=== PATIENT | female | born 1995 | race Caucasian/White ===

== ENCOUNTER → 2019-11-06 14:24 | Outpatient (BNVA) | payer MEDICAID, SELFPAY | PROVIDERS: Family Provider Nurse Practitioner Family; PCP Family Medicine; Visit Provider Nurse Practitioner Family | DX: J40 Bronchitis, not specified as acute or chronic (principal) | CPT/HCPCS: 71046 ==

== ENCOUNTER → 2020-12-08 10:48 | Outpatient (BNVA) | payer MEDICAID, SELFPAY | PROVIDERS: Family Provider Nurse Practitioner Family; PCP Nurse Practitioner Family; Visit Provider Nurse Practitioner Family | DX: D50.9 Iron deficiency anemia, unspecified (principal); N93.9 Abnormal uterine and vaginal bleeding, unspecified; R10.9 Unspecified abdominal pain | CPT/HCPCS: 81025; 85025 ==

== ENCOUNTER 2020-12-09 16:43 | Emergency (ER) | payer MEDICAID, SELFPAY ==
[2020-12-09 17:17] VITALS: BP 145/90; PULSE 90; RESP 16; TEMP 36.5; O2SAT 95; BMI 45.7
--- NOTE | 2020-12-09 17:34 | ED_ITS ---
HPI - Female Genitourinary General: Chief complaint: Vaginal Bleeding Stated complaint: SENT BY PCP/EXCESSIVE VAGINAL BLEEDING(3 WKS) Time Seen by Provider: 12/09/20 17:27 History of Present Illness: HPI Narrative: Patient is a 25-year-old female comes to the ED with vaginal bleeding. Patient has a past medical history of multiple C-sections and has had her tubes tied several years ago. She states that she went about 6 months without having. And then approximately 3 weeks ago she began having some vaginal bleeding. She says the vaginal bleeding has been fairly heavy and states that she is went through 2 boxes of tampons over the past 3 weeks. She says she has passed multiple blood clots as well. She has been having lower pelvic pain and lower back pain since bleeding started. Denies any dysuria or hematuria. She does states she feels like she has to urinate all the time. Denies fever, chills, nausea, emesis, bowel symptoms. Associated symptoms: Deny abdominal pain, headache(s) or nausea Date of Last Menstrual Period: 12/09/20 Review of Systems Const: Denies: fever(s), chills or fatigue Eyes: Denies: change in vision or eye discomfort ENMT: Denies: throat pain, odynophagia, nasal discharge or nasal congestion Card: Denies: chest pain, palpitations, edema, swelling of feet/ankles, d yspnea on exertion or orthopnea Resp: Denies: dyspnea, productive cough or non-productive cough GI: Denies: abdominal pain, nausea, vomiting, diarrhea, constipation or hematochezia : Reports: urinary frequency, vaginal bleeding and pelvic pain; Denies: flank pain, dysuria or hematuria Musc: Reports: back pain (low back pain); Denies: neck pain or extremity swelling Skin/Breast: Denies: rash or new lesions Neuro: Denies: headache(s), numbness in extremities or weakness in extremities PFSH ED PFSH: Medical History Cyst of right ovary Surgical History Hx of section (~03/2016) x 3 Hx of tubal ligation (~03/2016) Family History Mother Diabetes Hypertension Family/Other Hypertension Cancer Diabetes Social History Smoking and tobacco status: light tobacco smoker Second hand smoke exposure: Yes Alcohol intake: never Substance/Drug Use: never Lives independently: Yes Household members: children Marital status: Single service: No Current occupational status: unemployed History of recent travel: No Current gender identity: Female Female Reproductive History: Date of last menstrual period: 12/09/20 Physical Exam Const: COMMON NORMALS: no acute distress, patient oriented x3 and alert GENERAL APPEARANCE: cooperative and comfortable NUTRITIONAL APPEARANCE: obese HENMT: COMMON NORMALS: normocephalic HEAD & SCALP: normocephalic MOUTH: Normal oral and palatal mucosa present THROAT: posterior oropharynx normal and uvula midline Eye: COMMON NORMALS: Equal, round and reactive pupils present PUPIL: Yes Equal, round and reactive pupils present Neck/C-Spine: COMMON NORMALS: supple GENERAL: Yes normal visual inspection Resp: COMMON NORMALS: normal respiratory effort, No retractions, No use of accessory muscles and clear to auscultation bilaterally AUSCULTATION: clear to auscultation bilaterally Cardio: COMMON NORMALS: regular rate, regular rhythm, S1 normal heart sound present, S2 normal heart sound present, No gallops present (Cardio), No clicks present (Cardio), No murmurs present (Cardio) and Peripheral pulses 2+ throughout RATE: regular rate RHYTHM: regular rhythm HEART SOUNDS: S1 normal heart sound present and S2 normal heart sound present PERIPHERAL PULSES: Peripheral pulses 2+ throughout GI: COMMON NORMALS: Normal to inspection, nondistended, normoactive bowel s ounds present, Soft to palpation and no masses INSPECTION: Yes central obesity PALPATION: Yes Soft to palpation and Yes Tenderness to palpation present (GI) (Lower pelvic tenderness, specifically over bladder.) : COMMON NORMALS: Yes no CVA tenderness BLADDER/KIDNEY EXAM: Yes no CVA tenderness Back/Pelvis: COMMON NORMALS: no CVA tenderness LUMBAR SPINE/LOWER BACK: Yes paraspinal muscle tenderness Lumbar paraspinal muscle tenderness: bilateral Extremity: COMMON NORMALS: normal to inspection Neuro: COMMON NORMALS: patient oriented x3 and moves all extremities SENSORIUM/ORIENTATION: Yes alert Skin: GENERAL SKIN EXAM: dry skin Course Vital Signs: Vital signs: Vital Signs Temperature 97.7 F 12/09/20 17:17 Pulse Rate 78 12/09/20 19:35 Respiratory Rate 16 12/09/20 18:00 Blood Pressure 122/87 12/09/20 19:35 Pulse Oximetry 96 12/09/20 19:35 MDM - Female MDM Narrative: Medical decision making narrative: Patient is a 25-year-old f emale comes to the ED with vaginal bleeding. Patient has had vaginal bleeding for the past 3 weeks. She states that before she started bleeding 3 weeks ago she had not had a period in 6 months. Patient has had her tubes tied and denies being . Exam shows a patient that is nontoxic and in no acute distress or pain. She has some mild lower pelvic tenderness but no other acute exam findings. White blood cell count 11.0 and hemoglobin was 11.4. Rest of CBC and CMP were unremarkable. hCG serum negative. UA showed no signs of UTI. Pelvic ultrasound showed no lesions or masses seen, ovaries normal no intrauterine noted in there. Final radiology report is pending. Patient diagnosed with abnormal uterine bleeding and discharged home. She was told to follow-up with her PCP in 7 to 10 days for reevaluation. Return to ED precautions given. Patient understood and agreed with plan. Lab Data: Attestation: I reviewed the patient's lab results. Labs: Lab Results 12/09/20 12/09/20 12/09/20 Range/Units 17:38 17:38 17:50 WBC 11.0 H (4.0-10.0) 10^3/ uL RBC 4.26 (4.1-5.3) 10^6/u L Hgb 11.4 L (11.5-15.3) g/dL Hct 36.4 L (37.0-47.0) % MCV 85.4 (81-99) fL MCH 26.8 L (28.0-34.0) pg MCHC 31.3 (30.0-36.0) g/dL RDW 14.2 (12.1-15.1) % Plt Count 400 (130-400) 10^3/c mm MPV 9.7 (7.4-10.4) fL Neut % (Auto) 65.1 % Lymph % (Auto) 24.2 % Bullock % (Auto) 5.9 % Eos % (Auto) 4.0 % Baso % (Auto) 0.4 % Neut # (Auto) 7.19 (1.8-7.7) 10^3/u L Lymph # (Auto) 2.7 (0.8-4.8) 10^3/u L Bullock # (Auto) 0.7 (0.2-0.9) 10^3/u L Eos # (Auto) 0.4 (0.0-0.8) 10^3/u L Baso # (Auto) 0.0 (0.0-0.1) 10^3/u L Nucleated RBC % (a uto) 0 % Nucleated RBCs # 0.0 /100WBC Sodium (136-145) mmol/L Potassium (3.5-5.1) mmol/L Chloride (98-107) mmol/L Carbon Dioxide (22-29) mmol/L Anion Gap (5-19) BUN (6-20) mg/dL Creatinine (0.5-0.9) mg/dL GFR Calculation (90-130) mL/min Glucose (65-115) mg/dL Calculated Osmolal ity (285-295) mOsm/k g Calcium (8.5-10.5) mg/dL Total Bilirubin (0.15-1.2) mg/dL AST (0-32) U/L ALT (0-33) U/L Alkaline Phosphata se (35-105) IU/L Total Protein (6.6-8.7) g/dL Albumin (3.5-5.2) g/dL Globulin (1.3-4.6) g/dL HCG, Qual Negative (Negative) Urine Color Yellow (Yellow) Urine Appearance Clear (CLEAR) Urine pH 8 H (5-7) Ur Specific Gravit y 1.010 (1.005-1.030) Urine Protein Neg (Negative) Urine Glucose (UA) Norm (Normal) Urine Ketones Negative (Negative) Urine Blood 2+ H (Negative) Urine Nitrate Negative (Negative) Urine Bilirubin Neg (Negative) Prot Sulfosalicyli c Acd Negative (Negative) Urine Urobilinogen Norm (Negative) mg/dL Ur Leukocyte Bev ase Negative (Negative) Urine RBC None (0-2) /hpf Urine WBC None (0-5) /hpf Ur Squamous Epith Cells Rare (0-5) /hpf Amorphous Sediment Not Reportable Urine Bacteria None (NONE) /hpf 12/09/20 Range/Units 17:50 WBC (4.0-10.0) 10^3/ uL RBC (4.1-5.3) 10^6/u L Hgb (11.5-15.3) g/dL Hct (37.0-47.0) % MCV (81-99) fL MCH (28.0-34.0) pg MCHC (30.0-36.0) g/dL RDW (12.1-15.1) % Plt Count (130-400) 10^3/c mm MPV (7.4-10.4) fL Neut % (Auto) % Lymph % (Auto) % Bullock % (Auto) % Eos % (Auto) % Baso % (Auto) % Neut # (Auto) (1.8-7.7) 10^3/u L Lymph # (Auto) (0.8-4.8) 10^3/u L Bullock # (Auto) (0.2-0.9) 10^3/u L Eos # (Auto) (0.0-0.8) 10^3/u L Baso # (Auto) (0.0-0.1) 10^3/u L Nucleated RBC % (a uto) % Nucleated RBCs # /100WBC Sodium 138 (136-145) mmol/L Potassium 4.3 (3.5-5.1) mmol/L Chloride 105 (98-107) mmol/L Carbon Dioxide 26 (22-29) mmol/L Anion Gap 11.3 (5-19) BUN 16 (6-20) mg/dL Creatinine 0.7 (0.5-0.9) mg/dL GFR Calculation 100.4 (90-130) mL/min Glucose 85 (65-115) mg/dL Calculated Osmolal ity 286 (285-295) mOsm/k g Calcium 9.3 (8.5-10.5) mg/dL Total Bilirubin 0.2 (0.15-1.2) mg/dL AST 22 (0-32) U/L ALT 24 (0-33) U/L Alkaline Phosphata se 55 (35-105) IU/L Total Protein 7.5 (6.6-8.7) g/dL Albumin 4.4 (3.5-5.2) g/dL Globulin 3.1 (1.3-4.6) g/dL HCG, Qual (Negative) Urine Color (Yellow) Urine Appearance (CLEAR) Urine pH (5-7) Ur Specific Gravit y (1.005-1.030) Urine Protein (Negative) Urine Glucose (UA) (Normal) Urine Ketones (Negative) Urine Blood (Negative) Urine Nitrate (Negative) Urine Bilirubin (Negative) Prot Sulfosalicyli c Acd (Negative) Urine Urobilinogen (Negative) mg/dL Ur Leukocyte Bev ase (Negative) Urine RBC (0-2) /hpf Urine WBC (0-5) /hpf Ur Squamous Epith Cells (0-5) /hpf Amorphous Sediment Urine Bacteria (NONE) /hpf Imaging Data: US: Attestation: I personally reviewed and interpreted this imaging study as follows: Radiologist's impression: Ultrasound pelvis?prelim report?no lesions or masses seen. Ovaries normal and no intrauterine noted. Final radiology report is pending. Discharge Plan Discharge Patient Disposition: Home Clinical Impression: Abnormal uterine bleeding Condition: Stable Prescriptions: No Action albuterol sulfate [Ventolin HFA] 90 mcg/actuation HFA aerosol inhaler 2 puff INHALATION Q6H PRN (Reason: shortness of breath or wheezing) Qty: 6.7 RF: 0 albuterol sulfate 2.5 mg /3 mL (0.083 %) solution for nebulization 2.5 mg INHALATION QID PRN (Reason: shortness of breath or wheezing) Qty: 75 RF: 0 Tylenol 325 mg Tablet 325 - 650 mg PO Q6H PRN (Reason: Pain) RF: 0 FeroSul 325 mg (65 mg iron) tablet 325 mg PO BID RF: 0 Discharge Orders: Discharge ED (Routine); Ordered 12/09/20 Ordered By: Jose Mosquera Referrals: Karyna Shell FNP [Primary Care Provider] - Discharge Diet: Regular Discharge Activity: Limit activity as instructed Patient Instructions: Opioid Safety, Abnormal Uterine Bleeding Activity Restrictions/Additional Instructions: Follow-up with medical provider as directed. Call PCP tomorrow to set up an appointment within the next 7 to 10 days to reevaluate. Rest for the next 3 to 4 days and then increase activity as tolerated. Take [id number] Motrin or Tylenol for any pain. Return to the ER or your medical provider if condition worsens. Please read and understand discharge instructions. If any questions, please ask. Coding Level of Care Code ED Supervisor Of Operations for Marlin Fwana Exam Comprehensive
[2020-12-09 17:49] VITALS: BP 154/124; PULSE 84; O2SAT 100
--- NOTE | 2020-12-09 17:54 | US_ITS ---
WS: [id number] ULTRASOUND PELVIS TECHNIQUE: Transabdominal. Patient refused transvaginal CLINICAL INFORMATION: vaginal beeding : No. COMPARISON: None. FINDINGS: Uterus Orientation: Anteverted. Size: 10.6 cm x 5.8 cm x 5.5 cm Masses: None. Cervix: Blood clot visualized in the cervix extending into the upper vaginal canal Endometrium: Normal. Endometrium thickness: 0.5 cm. Adnexa: Normal. Right ovary size: 2.9 cm x 1.6 cm x 2.7 cm. Right ovary volume: 6.6 ccm3 Left ovary size: 3.8 cm x 2.7 cm x 2.8 cm. Left ovary volume: 15.0 ccm3 Free fluid: None. Other findings: None. US/US pelvic complete* [id number] IMPRESSION: 1. Normal uterus and endometrium. Endometrium measures 5.1 mm. 2. Hemorrhagic blood products and blood clots visualized in the cervix extendi ng into the upper vaginal canal. Recommend correlation with menorrhagia 3. Both ovaries are normal in appearance.
[2020-12-09 18:00] VITALS: RESP 16; O2SAT 94
[2020-12-09] MEDS: ondansetron 2 mg/ML SDV 2 mL 4 MG IVP (18:00)
[2020-12-09] MEDS: morphine 4 mg/mL SDV 1 mL IVP (18:00)
[2020-12-09 18:03] LABS: Basophils % 0.4 %; Eosinophils # 0.4 10^3/uL (0.0-0.8); Hematocrit 36.4 % (37.0-47.0); Hemoglobin 11.4 g/dL (11.5-15.3); Lymphocytes # 2.7 10^3/uL (0.8-4.8); Lymphocytes % 24.2 %; Mean Corpuscular HGB Conc 31.3 g/dL (30.0-36.0); Mean Corpuscular Hemoglobin 26.8 pg (28.0-34.0); Mean Corpuscular Volume 85.4 fL (81-99); Mean Platelet Volume 9.7 fL (7.4-10.4); Monocytes # 0.7 10^3/uL (0.2-0.9); Monocytes % 5.9 %; Neutrophils # 7.19 10^3/uL (1.8-7.7); Neutrophils % 65.1 %; Nucleated Red Blood Cells % 0 %; Platelet Count 400 10^3/cmm (130-400); Red Blood Count 4.26 10^6/uL (4.1-5.3); Red Cell Distribution Width 14.2 % (12.1-15.1)
[2020-12-09] MEDS: sodium chloride 0.9% 1,000 ML 999 ML IV (18:03)
[2020-12-09 18:25] LABS: Alanine Aminotransferase 24 U/L (0-33); Albumin Level 4.4 g/dL (3.5-5.2); Alkaline Phosphatase 55 IU/L (35-105); Anion Gap 11.3 (5-19); Aspartate Amino Transferase 22 U/L (0-32); Blood Urea Nitrogen 16 mg/dL (6-20); Calcium 9.3 mg/dL (8.5-10.5); Carbon Dioxide 26 mmol/L (22-29); Chloride 105 mmol/L (98-107); Creatinine Clr Calc Pharmacy 143.7304; Globulin 3.1 g/dL (1.3-4.6); Glomerular Filtration Rate 100.4 mL/min (90-130); Glucose 85 mg/dL (65-115); Osmolality Calculated 286 mOsm/kg (285-295); Potassium 4.3 mmol/L (3.5-5.1); Sodium 138 mmol/L (136-145); Total Bilirubin 0.2 mg/dL (0.15-1.2); Total Protein 7.5 g/dL (6.6-8.7)
[2020-12-09 18:34] LABS: HCG, Serum Qual Negative (Negative)
[2020-12-09 18:35] LABS: Bilirubin Urine Neg (Negative); Blood Urine 2+ (Negative); Glucose Urine UA Norm (Normal); Ketones Urine Negative (Negative); Leukocyte Esterase Urine Negative (Negative); Nitrate Urine Negative (Negative); Protein Urine Neg (Negative); Sulfosalicylic Acid Urine Negative (Negative); Urine Appearance Clear (CLEAR); Urine Color Yellow (Yellow); Urobilinogen Urine Norm (Negative); pH Urine 8 (5-7)
[2020-12-09 18:39] LABS: Squamous Epithelial Cell Urine RARE /hpf (0-5)
[2020-12-09] MEDS: HYDROcodone-acetaminophen 5-325 mg Tablet 2 TAB PO (19:33)
[2020-12-09 19:34] VITALS: BP 122/87; PULSE 79; O2SAT 97
[2020-12-09 19:35] VITALS: BP 122/87; PULSE 78; O2SAT 96
== END 2020-12-09 19:36 | disposition home or self-care (01) ==
PROVIDERS: Emergency Provider Physician Assistant; PCP Nurse Practitioner Family
DX: N93.9 Abnormal uterine and vaginal bleeding, unspecified (principal); F17.210 Nicotine dependence, cigarettes, uncomplicated
CPT/HCPCS: 76856; 80053; 81001; 84703; 85025; 96361; 96374; 96375; 99283; J2270; J2405; J7030

== ENCOUNTER → 2021-01-03 10:35 | Outpatient (BNVA) | payer MEDICAID, SELFPAY | PROVIDERS: PCP Nurse Practitioner Family; Visit Provider Obstetrics & Gynecology | DX: N93.9 Abnormal uterine and vaginal bleeding, unspecified (principal) | CPT/HCPCS: 84144; 84146; 84443; 84702 ==

== ENCOUNTER 2021-01-11 09:02 | Outpatient (CLI) | payer MEDICAID, SELFPAY ==
[2021-01-11] MEDS: iohexol 300 mg/mL 100 mL Btl IV (10:09)
--- NOTE | 2021-01-11 10:30 | CT_ITS ---
WS: [id number] CT ABDOMEN PELVIS TECHNIQUE: Contrast-enhanced CT of the abdomen and pelvis with coronal and sagittal reformatted image s. CLINICAL INFORMATION: R10.9 - Unspecified abdominal pain COMPARISON: CT October 03, 2018 DLP: 1199.[address] scans at [facility] use at least one of these dose optimization techniques: automat ed exposure control; mA and/or kV adjustment per patient size (includes targeted exams where dose is matched to clinical indication); or iterative reconstruction. FINDINGS: Hepatomegaly. Mild diffuse fatty infiltration the liver. Normal portal vein and splenic vein. Mild sp lenomegaly. Normal GE junction. Lung bases are well aerated. Normal pancreatic parenchymal enhancemen t. Normal gallbladder. Normal caliber abdominal aorta. Adrenal glands are normal. Normal renal parenc hymal enhancement. No hydronephrosis. No abdominal or pelvic lymphadenopathy. Endometrial thickening measuring approximately 23 mm. Some this may be due to fluid or blood products . No significant free fluid in the pelvis. Normal sigmoid colon. No evidence of small or large bowel obstruction. Left ovarian cyst measuring 2.[address]/CT abdomen pelvis w con* [id number] IMPRESSION: 1. Hepatomegaly and splenomegaly. Diffuse fatty infiltration of the liver. 2. No hydronephrosis in either kidney. 3. Heterogeneous uterine enhancement with uterine enlargement. Diffuse endomet rial thickening measuring 23 mm. This can be further evaluated with pelvic ultr asound. 4. Low-attenuation left ovarian cyst measuring 2.8 cm. 5. No other significant findings.
== END 2021-01-11 09:03 | disposition home or self-care (01) ==
PROVIDERS: PCP Nurse Practitioner Family; Visit Provider Nurse Practitioner Family
DX: R10.9 Unspecified abdominal pain (principal); N83.202 Unspecified ovarian cyst, left side; R16.2 Hepatomegaly with splenomegaly, not elsewhere classified; K76.0 Fatty (change of) liver, not elsewhere classified
CPT/HCPCS: 74177; Q9967

== ENCOUNTER → 2021-01-14 00:01 | Outpatient (BNVA) | payer MEDICAID, SELFPAY | PROVIDERS: PCP Nurse Practitioner Family; Visit Provider Obstetrics & Gynecology | DX: Z20.822 Contact with and (suspected) exposure to COVID-19 (principal) | CPT/HCPCS: 87635 ==

== ENCOUNTER → 2021-01-17 13:11 | Outpatient (BNVA) | payer MEDICAID, SELFPAY | PROVIDERS: PCP Nurse Practitioner Family; Visit Provider Obstetrics & Gynecology | DX: N93.9 Abnormal uterine and vaginal bleeding, unspecified (principal) | CPT/HCPCS: 88175 ==

== ENCOUNTER 2021-01-20 06:40 | Day surgery (SDC) | payer MEDICAID, SELFPAY ==
[2021-01-11 10:48] VITALS: BMI 47.5
--- NOTE | 2021-01-11 10:58 | ANES.PREANE2 ---
Pre-Anesthetic Assessment Pre-Anesthetic Assessment: Height/Weight: Height 1.57 m Weight 117.934 kg Preop Diagnosis: abdominal pain Proposed Procedure: Operation Date: 01/20/21 08:40 Proposed Procedures p Hysteroscopy [id number] N93.9(Not Applicable) - Brandee Cole MD s Dilation And Curettage (D&C)(Not Applicable) - Brandee Cole MD Familial anesthetic complications: had to be put to sleep during d/t inadequate anesthesia during planned c -section Social: Social History: No alcohol and No tobacco Exam: Pre-Anes Outpt Exam: alert, oriented x 3, clear to auscultation bilaterally and regular rate & rhythm Airway: Cervical ROM: WNL MP: 1 Dentition: Full CV/HEM: CV/HEM: Anemia Metabolic: Metabolic: Morbid obesity Musc/skel: Musc/skel: Lower Back Pain Anesthetic Plan: ASA status: 2 Anesthesia: General Risk of > 500 ml blood loss (7ml/kg in children): No PFSH Anesthesia PFSH: Medical History (Updated 01/03/21 @ 09:06 by Liliam Giles RN) Cyst of right ovary Surgical History Hx of section (~03/2016) x 3 Hx of tubal ligation (~03/2016) Family History (Updated 01/03/21 @ 09:29 by Liliam Giles RN) Mother Diabetes Hypertension Family/Other Cancer Breast cancer maternal cousin Grandmother Diabetes maternal Denies family history of Colon cancer Ovarian cancer Hyperlipidemia Uterine cancer Thyroid condition Stroke Social History (Updated 01/03/21 @ 09:07 by Liliam Giles RN) Smoking and tobacco status: light tobacco smoker Alcohol intake: never Marital status: Single History of recent travel: No Female Reproductive History: Date of last menstrual period: 01/11/21 Data Anesthesia Cardiac Studies: No Data to Display
[2021-01-20] VITALS (10 sets, daily range): BP systolic 124–166; BP diastolic 89–125; PULSE 80–115; RESP 16–20; TEMP 36.4–36.7; O2SAT 94–100
--- NOTE | 2021-01-20 06:57 | P.HPUD_ITS ---
Surgery/Procedure H&P Update DATE OF PROCEDURE: January 20, 2021 DATE H&P PERFORMED: 01/17/21 H&P UPDATE INFORMATION: I have reviewed H&P completed within last 30 days, I have examined patient prior to procedure, No changes to prior documentation and H&P is in [facility] [place] [facility] EMR on date indicated PREOP DIAGNOSIS: AUB PLANNED PROCEDURE: Operation Date: 01/20/21 07:00 Proposed Procedures p Hysteroscopy [id number] N93.9(Not Applicable) - Brandee Cole MD s Dilation And Curettage (D&C)(Not Applicable) - Brandee Cole MD
[2021-01-20 07:00] LABS: OR HCG Qualitative Urine Negative (Negative)
--- NOTE | 2021-01-20 07:07 | P.ANESUD_ITS ---
Pre-Anesthetic Update Pre-Anesthetic Assessment: Date of Surgery/Procedure: 01/20/21 Preop Taylor gnosis: AUB Proposed Procedure: Operation Date: 01/20/21 07:00 Proposed Procedures p Hysteroscopy [id number] N93.9(Not Applicable) - Brandee Cole MD s Dilation And Curettage (D&C)(Not Applicable) - Brandee Cole MD Any changes to Pre-Anesthetic Assessment?: No Last Intake: Intake Last Liquid Date 01/19/21 Last Liquid Time 23:00 Last Solid Date 01/19/21 Last Solid Time 23:00 Labs Last 48hrs: Laboratory Results - last 48 hr 01/20/21 06:19 Urine HCG, Qual Negative Vitals: Temperature 98.0 F 01/20/21 06:53 Temperature Source Temporal Artery S can 01/20/21 06:53 Pulse Rate 115 H 01/20/21 06:53 Pulse Rhythm 01/20/21 06:53 Pulse Strength 3+ Normal 01/20/21 06:53 Respiratory Rate 18 01/20/21 06:53 Blood Pressure 166/125 01/20/21 06:53 Blood Pressure Tameka n 138 01/20/21 06:53 Pulse Oximetry 98 01/20/21 06:53 Oxygen Delivery Me thod 01/20/21 06:53 Exam: Pre-Anes Outpt Exam: alert, oriented x 3, clear to auscultation bilaterally and regular rate & rhythm Cardiac Studies: No Data to Display
[2021-01-20] MEDS: sodium chloride 0.9% 1,000 ML 30 ML IV (07:08)
[2021-01-20 07:10] LABS: Basophils % 0.2 %; Eosinophils # 0.2 10^3/uL (0.0-0.8); Eosinophils % 1.5 %; Hemoglobin 9.7 g/dL (11.5-15.3); Lymphocytes # 2.2 10^3/uL (0.8-4.8); Mean Corpuscular HGB Conc 31.3 g/dL (30.0-36.0); Mean Corpuscular Hemoglobin 25.7 pg (28.0-34.0); Mean Corpuscular Volume 82.2 fL (81-99); Mean Platelet Volume 9.3 fL (7.4-10.4); Monocytes % 6.5 %; Neutrophils # 12.35 10^3/uL (1.8-7.7); Neutrophils % 77.2 %; Nucleated Red Blood Cells % 0 %; Platelet Count 457 10^3/cmm (130-400); Red Blood Count 3.77 10^6/uL (4.1-5.3); Red Cell Distribution Width 13.1 % (12.1-15.1)
[2021-01-20] MEDS: miSOPROStol 200 mcg Tablet 800 MCG XX (07:55)
--- NOTE | 2021-01-20 07:56 | PM.OP ---
Operative Report Date of procedure: January 20, 2021 OPERATIVE REPORT Date of surgery: 01/20/2021 Date of dictation: 01/20/2021 Preoperative diagnosis: Menorrhagia-abnormal uterine bleeding-likely anovulatory Postoperative diagnosis/findings: Same, 8 to 9-week size anteverted uterus, mobile, no adnexal masses, on hysteroscopy thick endometrium-no obvious defects or lesions noted within the endometrial endocervical cavity, bilateral ostia visualized and normal. Procedure done: Hysteroscopy, D&C Specimens removed/disposition of specimens: Endometrial curettings Surgeon: Dr. Brandee Cannon central supply assistant: Dominga Anesthesia: General endotracheal tube anesthesia Estimated blood loss: 25 ml Intravenous fluids: 500 mL of LR Urine output: 20 mL of clear urine via red rubber catheter prior to start of surgery Medications: 800 mcg of Cytotec per rectum, as per anesthesia Complications: None, patient was extubated and taken to the recovery room in a stable condition PROCEDURE: After consent was obtained patient was taken to the operating room where she is placed under general endotracheal tube anesthesia without any difficulty. She was placed supine on the table in lithotomy position. Care was taken to ensure that her legs were well positioned to avoid pressure points. She was then prepped and draped in the usual sterile fashion. Exam under anesthesia was done at this time which showed a 8 to 9-week size anteverted uterus. The weighted speculum and lateral vaginal wall retractors were placed in the vagina and the cervix was visualized. The cervix appeared normal. The cervix was dilated to a 15 Glass dilator very easily. This allowed placement of a 3 mm hysteroscope into the uterine cavity without any difficulty. Once the hysteroscope was placed in the uterine cavity, the endocervical canal was visualized and appeared normal except for thick fluffy endometrial tissue-no polyps or other intracavitary lesions were noted..the uterine cavity was visualized and thick endometrial tissue noted. The hysteroscope was withdrawn and sharp curette was placed and curettage was performed and extensive amounts of thick tissue was obtained..The endometrial curettings were sent to pathology in . No active bleeding was noted from the cervix. Tenaculum was removed and good hemostasis was noted. Good hemostasis was achieved. 800 mcg of Cytotec was placed per rectum to help with uterine contractility and to decrease the bleeding. All instruments were removed from the vagina. Patient was cleaned well and anesthesia was reversed without any difficulty. She was taken to the recovery in a stable condition. FOLLOW UP: Follow-up in 2 weeks and 6 weeks with surgeon MEDICATION ON DISCHARGE: Colace 100 mg by mouth every 12 hours when necessary constipation, 30 tablets, no refills Ibuprofen 600 mg by mouth every 8 hours when necessary pain, 60 tablets, no refills. with iron once a day as per instructions Continue other home medication[default value] DISPOSITION: Home in a stable condition This documentation was created by [employer] engineer remote control diesel software (known for inherent engineer remote control diesel error). Every effort was made to assure accuracy of engineer remote control diesel. Any obvious errors or omissions should be clarified with the author of the document. Pre-op Diagnosis: AUB
[2021-01-20] MEDS: fentaNYL 50 mcg/mL INJ 2mL IVP (08:14)
[2021-01-20] MEDS: ibuprofen 600 mg Tablet PO (08:57)
--- NOTE | 2021-01-20 09:26 | SUR.PHASEI ---
0802- ORAL AIRWAY REMOVED, SIMPLE MASK AT 6LPM SAT 100%
--- NOTE | 2021-01-20 13:33 | ANE.PACU2 ---
Inpatient post-anesthesia follow up: Airway intact: Yes Vital signs: Temperature 97.5 F Pulse Rate 88 Respiratory Rate 18 Blood Pressure 145/102 Pulse Oximetry 94 Oxygen Delivery Me thod Room Air Oxygen Flow Rate 6 Fraction of Inspir ed Oxygen Hydration adequate: Yes Nausea and vomiting: No Pain level: 2 Mental status: Baseline
== END 2021-01-20 09:20 | disposition home or self-care (01) ==
PROVIDERS: Anesthesiology; PCP Nurse Practitioner Family; Visit Provider Obstetrics & Gynecology
PROC: 0UJD8ZZ Inspection of Uterus and Cervix, Via Natural or Artificial Opening Endoscopic (ICD-10-PCS; CPT 58555; principal; 2021-01-20 07:00)
PROC: (CPT 58120; 2021-01-20 07:00)
DX: N92.1 Excessive and frequent menstruation with irregular cycle (principal); E66.01 Morbid (severe) obesity due to excess calories; Z68.42 Body mass index [BMI] 45.0-49.9, adult; F17.210 Nicotine dependence, cigarettes, uncomplicated; Z83.3 Family history of diabetes mellitus; Z82.49 Family history of ischemic heart disease and other diseases of the circulatory system; Z80.3 Family history of malignant neoplasm of breast
CPT/HCPCS: 58558; 36415; 81025; 84703; 85025; 86850; 86900; 88305; J0330; J1100; J2250; J2405; J2704; J3010; J7030

== ENCOUNTER → 2021-02-07 15:58 | Outpatient (BNVA) | payer MEDICAID, SELFPAY | PROVIDERS: PCP Nurse Practitioner Family; Visit Provider Obstetrics & Gynecology | DX: N93.9 Abnormal uterine and vaginal bleeding, unspecified (principal) | CPT/HCPCS: 85025 ==

== ENCOUNTER 2021-02-09 20:08 | Emergency (ER) | payer MEDICAID, SELFPAY ==
[2021-02-09 20:38] VITALS: PULSE 88; RESP 18; TEMP 36.7; O2SAT 94; BMI 45.7
--- NOTE | 2021-02-09 22:39 | W.ED.FEMALGU ---
HPI - Female Genitourinary General: Chief complaint: Urogenital-Female Stated complaint: excessive vaginal bleeding Time Seen by Provider: 02/09/21 22:32 History of Present Illness: HPI Narrative: Patient states that she been bleeding for about 3 months. Is had a D&C also. Had just been placed on control this week is not controlling the bleeding. She spoke to her CLASSIFICATION AND TREATMENT DIRECTOR doctor and they said they just need to take 3 control pills tomorrow patient says she just hurts and continues to bleed and she just does not want to do that so she went to be evaluated. MD elicited complaint: vaginal bleeding Pertinent past history: other (Bleeding x3 months and had a D&C recently) Onset (ago): month(s) Severity: moderate Severity scale (1-10): 4 Quality of pain: aching Consistency: constant and progressively worsening Vaginal discharge: none Vaginal bleeding: heavy, bright red and # pads per day (She said she will soak 2-3 pads at a time) Exacerbating factors: none Relieving factors: none Associated symptoms: Reports nausea and other (Back pain); Deny headache(s) Treatment prior to arrival: none Patient : No Date of Last Menstrual Period: 01/11/21 Review of Systems Const: Denies: fever(s), chills or body aches Eyes: Denies: change in vision or blurry vision ENMT: Denies: throat pain or nasal congestion Card: Denies: chest pain or dyspnea on exertion Resp: Denies: dyspnea, productive cough or non-productive cough GI: Reports: nausea : Reports: vaginal bleeding Musc: Denies: extremity pain Skin/Breast: Denies: rash Neuro: Denies: headache(s) Psych: Denies: anxiety or depression Derrick/Lymph: Denies: easy bruising PFSH ED PFSH: Medical History Asthma Has had asthma since she was a child and denies any history of intubations or hospitalization. Uses an albuterol inhaler as needed usually a couple of times a year-last use was in August 2020 No pertinent past medical history Denies diabetes, asthma, hypertension, seizures, DVT/PE PCP: BRENT Lema Surgical History Hx of section x 3 08/10/2013-malpresentation of twin gestation with a leg prolapsed-emergency by Dr. Kali Gates at [facility] 07/19/2014---- repeat for twins performed by Dr. Gates at [facility]. 04/06/2016-repeat with the drainage of left ovarian cyst and bilateral tubal ligation performed by Dr. Cannon at [facility] Hx of tubal ligation 04/06/2016-bilateral tubal ligation performed at time of by Dr. Cannon at [facility] pathology confirmed bilateral transection with normal morphology. Family History Mother Diabetes Hypertension Family/Other Cancer Breast cancer maternal cousin Grandmother Diabetes maternal Denies family history of Colon cancer Ovarian cancer Hyperlipidemia Uterine cancer Thyroid condition Stroke Social History Smoking and tobacco status: light tobacco smoker Alcohol intake: never Marital status: Single History of recent travel: No Female Reproductive History: Date of last menstrual period: 01/11/21 Physical Exam Const: COMMON NORMALS: no acute distress, average body habitus and patient oriented x3 HENMT: COMMON NORMALS: normocephalic HEAD & SCALP: normal to inspection and normocephalic FACE & SINUS: normal facial exam Eye: COMMON NORMALS: conjunctivae normal GENERAL EYE: appearance normal, both eyes and all related structures CONJUNCTIVA: Yes conjunctivae normal Neck/C-Spine: COMMON NORMALS: no JVD Chest: COMMONS NORMALS: normal inspection of the chest Resp: COMMON NORMALS: normal respiratory effort and clear to auscultation bilaterally AUSCULTATION: clear to auscultation bilaterally Cardio: COMMON NORMALS: no JVD, regular rate and regular rhythm RATE: regular rate RHYTHM: regular rhythm Extremity: COMMON NORMALS: normal to inspection and full ROM Neuro: COMMON NORMALS: patient oriented x3 Course Vital Signs: Vital signs: Vital Signs Temperature 98.1 F 02/09/21 20:38 Pulse Rate 88 02/09/21 20:38 Respiratory Rate 18 02/09/21 20:38 Pulse Oximetry 94 02/09/21 20:38 MDM - Female MDM Narrative: Medical decision making narrative: Reviewed patient's lab work mild change from previous. Patient says she will call her BEET TOPPER in the morning and get reevaluated she is out of control presently and take Provera. Lab Data: Labs: Lab Results 02/09/21 Range/Units 22:42 WBC 10.9 H (4.0-10.0) 10^3/ uL RBC 3.62 L (4.1-5.3) 10^6/u L Hgb 8.9 L (11.5-15.3) g/dL Hct 29.4 L (37.0-47.0) % MCV 81.2 (81-99) fL MCH 24.6 L (28.0-34.0) pg MCHC 30.3 (30.0-36.0) g/dL RDW 13.2 (12.1-15.1) % Plt Count 392 (130-400) 10^3/c mm MPV 8.9 (7.4-10.4) fL Neut % (Auto) 65.6 % Lymph % (Auto) 23.6 % [place] % (Auto) 7.5 % Eos % (Auto) 2.5 % Baso % (Auto) 0.3 % Neut # (Auto) 7.13 (1.8-7.7) 10^3/u L Lymph # (Auto) 2.6 (0.8-4.8) 10^3/u L [place] # (Auto) 0.8 (0.2-0.9) 10^3/u L Eos # (Auto) 0.3 (0.0-0.8) 10^3/u L Baso # (Auto) 0.0 (0.0-0.1) 10^3/u L Nucleated RBC % (a uto) 0 % Nucleated RBCs # 0.0 /100WBC Discharge Plan Discharge Patient Disposition: Home Clinical Impression: Abnormal uterine bleeding Condition: Stable Prescriptions: New Provera 10 mg tablet 10 mg PO DAILY 7 Days Qty: 7 RF: 0 Zofran 4 mg tablet 8 mg PO Q8H 3 Days Qty: 18 RF: 0 hydrocodone-acetaminophen 7.5-325 mg tablet 1 tab PO TID PRN (Reason: pain) Qty: 14 RF: 0 Held Junel FE 1.5/30 (28) 1.5 mg-30 mcg (21)/75 mg (7) tablet 1 tab PO DAILY Qty: 28 RF: 3 Hold Instructions: Resume on 02/17/21. No Action ferrous sulfate [FeroSul] 325 mg (65 mg iron) tablet 325 mg PO BID RF: 0 Discharge Orders: Discharge ED (Routine); Ordered 02/09/21 Ordered By: Jethro Epps Referrals: Karyna Shell FNP [Primary Care Provider] - Discharge Diet: Usual diet Discharge Activity: Increase activity as tolerated Patient Instructions: Opioid Safety Activity Restrictions/Additional Instructions: Contact your CLASSIFICATION AND TREATMENT DIRECTOR today have him look at your lab work from [employer]. Take medication as directed. Coding Level of Care Code ED Dragline Engineer for Marlin Fwana Exam Comprehensive
[2021-02-09] MEDS: ondansetron 4 MG Tablet 8 MG PO (22:48)
[2021-02-09] MEDS: HYDROcodone-acetaminophen 7.5-325 mg Tablet 1 TAB PO (22:48)
[2021-02-09 22:49] LABS: Basophils % 0.3 %; Eosinophils # 0.3 10^3/uL (0.0-0.8); Eosinophils % 2.5 %; Hematocrit 29.4 % (37.0-47.0); Hemoglobin 8.9 g/dL (11.5-15.3); Lymphocytes # 2.6 10^3/uL (0.8-4.8); Lymphocytes % 23.6 %; Mean Corpuscular HGB Conc 30.3 g/dL (30.0-36.0); Mean Corpuscular Hemoglobin 24.6 pg (28.0-34.0); Mean Corpuscular Volume 81.2 fL (81-99); Mean Platelet Volume 8.9 fL (7.4-10.4); Monocytes # 0.8 10^3/uL (0.2-0.9); Monocytes % 7.5 %; Neutrophils # 7.13 10^3/uL (1.8-7.7); Neutrophils % 65.6 %; Nucleated Red Blood Cells % 0 %; Platelet Count 392 10^3/cmm (130-400); Red Blood Count 3.62 10^6/uL (4.1-5.3); Red Cell Distribution Width 13.2 % (12.1-15.1); White Blood Count 10.9 10^3/uL (4.0-10.0)
[2021-02-09] MEDS: medroxyprogesterone 2.5 mg Tablet 10 MG PO (22:49)
[2021-02-09 23:07] LABS: Anion Gap 14.2 (5-19); Blood Urea Nitrogen 10 mg/dL (6-20); Calcium 8.7 mg/dL (8.5-10.5); Carbon Dioxide 26 mmol/L (22-29); Chloride 102 mmol/L (98-107); Glucose 94 mg/dL (65-115); Osmolality Calculated 285 mOsm/kg (285-295); Potassium 4.2 mmol/L (3.5-5.1); Sodium 138 mmol/L (136-145)
== END 2021-02-09 23:00 | disposition home or self-care (01) ==
PROVIDERS: Emergency Medicine; Emergency Provider Nurse Practitioner Family; PCP Nurse Practitioner Family
DX: N93.9 Abnormal uterine and vaginal bleeding, unspecified (principal); F17.210 Nicotine dependence, cigarettes, uncomplicated
CPT/HCPCS: 80048; 85025; 99283; Q0162

== ENCOUNTER 2021-02-11 18:50 | Observation (INO) | payer MEDICAID, SELFPAY ==
[2021-02-11 19:09] VITALS: BP 146/91; PULSE 83; RESP 18; TEMP 37.1; O2SAT 98; BMI 45.7
[2021-02-11 20:08] VITALS: BP 126/79; PULSE 90; RESP 18; O2SAT 100
[2021-02-11 20:21] LABS: Basophils % 0.3 %; Eosinophils # 0.2 10^3/uL (0.0-0.8); Eosinophils % 1.1 %; Hematocrit 31.7 % (37.0-47.0); Hemoglobin 9.7 g/dL (11.5-15.3); Lymphocytes # 1.4 10^3/uL (0.8-4.8); Lymphocytes % 10.1 %; Mean Corpuscular HGB Conc 30.6 g/dL (30.0-36.0); Mean Corpuscular Hemoglobin 24.7 pg (28.0-34.0); Mean Corpuscular Volume 80.9 fL (81-99); Mean Platelet Volume 9.8 fL (7.4-10.4); Neutrophils % 81.1 %; Nucleated Red Blood Cells % 0 %; Platelet Count 433 10^3/cmm (130-400); Red Blood Count 3.92 10^6/uL (4.1-5.3); Red Cell Distribution Width 13.3 % (12.1-15.1); White Blood Count 13.8 10^3/uL (4.0-10.0)
[2021-02-11 20:35] LABS: HCG, Serum Qual Negative (Negative)
[2021-02-11 20:38] LABS: Alanine Aminotransferase 32 U/L (0-33); Albumin Level 4.1 g/dL (3.5-5.2); Alkaline Phosphatase 94 IU/L (35-105); Anion Gap 12.1 (5-19); Aspartate Amino Transferase 60 U/L (0-32); Blood Urea Nitrogen 10 mg/dL (6-20); Calcium 8.9 mg/dL (8.5-10.5); Carbon Dioxide 28 mmol/L (22-29); Chloride 102 mmol/L (98-107); Globulin 3.1 g/dL (1.3-4.6); Glomerular Filtration Rate 119.9 mL/min (90-130); Glucose 102 mg/dL (65-115); Lipase 27 U/L (13-60); Osmolality Calculated 285 mOsm/kg (285-295); Potassium 4.1 mmol/L (3.5-5.1); Sodium 138 mmol/L (136-145); Total Bilirubin 0.5 mg/dL (0.15-1.2); Total Protein 7.2 g/dL (6.6-8.7)
--- NOTE | 2021-02-11 21:18 | USR_ITS ---
PROCEDURE INFORMATION: Exam: US Abdomen, Limited; Right Upper Quadrant Exam date and time: 02/11/2021 10:47 PM Age: 25 years old Clinical indication: Abdominal pain; Acute; Additional info: Ruq epigastric pain TECHNIQUE: Imaging protocol: US abdomen. Real time ultrasound with image documentation. Limited exam focused on the right upper quadrant. COMPARISON: CT abdomen pelvis w con* [id number] 01/11/2021 10:05 AM FINDINGS: Liver: There is mild hyperechogenicity of the hepatic parenchyma compatible with fatty infiltration. Gallbladder: Hyperechoic foci are seen within the gallbladder lumen compatible with gallstones. There is mild gallbladder wall thickening measuring up to 2.9 mm. A positive sonographic Marte sign is elicited. Mild gallstone cholecystitis cannot be entirely excluded. Common bile duct: Normal. No stones. No dilation. Pancreas: Visualized pancreas is unremarkable. Right kidney: Normal. No mass. No hydronephrosis. US/US gall bladder [id number] IMPRESSION: 1. Gallstones, borderline thickening of the gallbladder wall measuring 2.9 mm and positive sonographic Marte sign suggests mild gallstone cholecystitis. 2. Fatty infiltration of the liver
[2021-02-11] MEDS: lidocaine 2% viscous 15 ML, aluminum-mag hydrox-simethicon 30 ML, sucralfate oral liq 1 GM PO (21:24)
[2021-02-11 21:26] LABS: Lactate (Lactic Acid level) 1.4 mmol/L (0.5-2.2)
[2021-02-11] MEDS: ondansetron 2 mg/ML SDV 2 mL 4 MG IVP (21:26)
[2021-02-11 21:27] VITALS: RESP 18; O2SAT 99
[2021-02-11] MEDS: morphine 4 mg/mL SDV 1 mL IVP (21:27)
[2021-02-11 23:40] VITALS: PULSE 70; RESP 16; O2SAT 97
[2021-02-12] VITALS (20 sets, daily range): BP systolic 113–160; BP diastolic 62–108; PULSE 59–104; RESP 12–19; TEMP 36.2–37.3; O2SAT 90–100
[2021-02-12 00:12] LABS: Glucose Urine UA Norm (Normal); Ketones Urine Negative (Negative); Nitrate Urine Negative (Negative); Protein Urine Neg (Negative); Urine Appearance Clear (CLEAR); Urine Color Yellow (Yellow); pH Urine 7 (5-7)
[2021-02-12 00:13] LABS: Add Urine Microscopic? YES; Bilirubin Urine Neg (Negative); Blood Urine 3+ (Negative); Leukocyte Esterase Urine Negative (Negative); Urobilinogen Urine 1 mg/dL (Negative)
[2021-02-12 00:15] LABS: Amorphous Sediment Urine 1+ /hpf; Bacteria Urine TRACE /hpf; RBC Urine 0-4 /hpf (0-2); Squamous Epithelial Cell Urine 0-4 /hpf (0-5)
[2021-02-12] MEDS: morphine 4 mg/mL SDV 1 mL IVP ×3 (00:57→12:02)
[2021-02-12] MEDS: piperacillin-tazobactam 3.375 GM in sodium chloride 0.9% (plus) 50 ML IV ×2 (00:59→08:26)
[2021-02-12] MEDS: sodium chloride 0.9% 1,000 ML 150 ML IV ×2 (02:29→08:25)
--- NOTE | 2021-02-12 05:01 | ED_ITS ---
HPI - Abdominal Pain General: Chief Complaint: Abdominal Pain Stated Complaint: STOMACH PAIN/HERE RECENTLY Time Seen by Provider: 02/11/21 20:11 History of Present Illness: HPI narrative: 25-year-old female with a history of dysfunctional uterine bleeding. Zentz with epigastric and right upper quadrant pain. She states it started earlier in the day, and became very intense. No vomiting, but she is nauseated. No history of fever. MD elicited complaint: abdominal pain Pertinent past history: none Onset (ago): hour(s) Location: Epigastric and RUQ Severity: severe Quality: stabbing Radiation: RUQ and epigastric Migration to: no migration Exacerbating factors: movement Relieving factors: nothing Associated Symptoms: Reports nausea; Denies belching, change in stool character, constipation, diarrhea, dysuria, fever(s), melena and vomiting Related Data: Date of Last Menstrual Period: 01/11/21 Review of Systems Const: Denies: fever(s) Resp: Denies: dyspnea or productive cough GI: Reports: nausea; Denies: vomiting, diarrhea, constipation, belching, change in stool character or melena : Denies: flank pain or dysuria Neuro: Denies: headache(s) or weakness in extremities PFSH ED PFSH: Medical History Asthma Has had asthma since she was a child and denies any history of intubations or hospitalization. Uses an albuterol inhaler as needed usually a couple of times a year-last use was in August 2020 No pertinent past medical history Denies diabetes, asthma, hypertension, seizures, DVT/PE PCP: BRENT Lema Surgical History Hx of section x 3 08/10/2013-malpresentation of twin gestation with a leg prolapsed-emergency by Dr. Kali Gates at [facility] [place] 07/19/2014---- repeat for twins performed by Dr. Gates at [facility] [place]. 04/06/2016-repeat with the drainage of left ovarian cyst and bilateral tubal ligation performed by Dr. Cannon at [facility] [place] Hx of tubal ligation 04/06/2016-bilateral tubal ligation performed at time of by Dr. Cannon at [facility] pathology confirmed bilateral transection with normal morphology. Family History Mother Diabetes Hypertension Family/Other Cancer Breast cancer maternal cousin Grandmother Diabetes maternal Denies family history of Colon cancer Ovarian cancer Hyperlipidemia Uterine cancer Thyroid condition Stroke Social History Smoking and tobacco status: light tobacco smoker Alcohol intake: never Marital status: Single History of recent travel: No Female Reproductive History: Date of last menstrual period: 01/11/21 Physical Exam Const: COMMON NORMALS: no acute distress HENMT: COMMON NORMALS: normocephalic HEAD & SCALP: normocephalic Eye: COMMON NORMALS: Equal, round and reactive pupils present and EOMs intact bilaterally PUPIL: Yes Equal, round and reactive pupils present Chest: COMMONS NORMALS: normal inspection of the chest Resp: COMMON NORMALS: normal respiratory effort, No retractions and No use of accessory muscles Cardio: COMMON NORMALS: regular rate and regular rhythm; negative for No murmurs present (Cardio) RATE: regular rate RHYTHM: regu lar rhythm GI: COMMON NORMALS: Normal to inspection, nondistended, normoactive bowel sounds present PALPATION: Yes Tenderness to palpation present (GI) Details: RUQ, Yes Guarding due to palpation present (GI) and No Palpable mass present Course Consultations: Consultation #1: shirley Vital Signs: Vital signs: Vital Signs Temperature 98.9 F 02/12/21 04:00 Pulse Rate 84 02/12/21 04:00 Respiratory Rate 16 02/12/21 04:00 Blood Pressure 129/84 02/12/21 04:00 Pulse Oximetry 94 02/12/21 04:00 MDM - Abdominal Pain MDM Narrative: Medical decision making narrative: Hemoglobin 9.7. White blood cell count is 14. Liver enzymes are normal. On ultrasound, the patient has gallstones and thickening of the gallbladder wall with a sonographic Marte sign suggesting cholecystitis. Fits her symptoms and her white blood cell count. She will be admitted on Zosyn. Surgery will admit. Lab Data: Labs: Lab Results 02/11/21 02/11/21 02/11/21 Range/Units 20:16 20:16 20:16 WBC 13.8 H (4.0-10.0) 10^3/ uL RBC 3.92 L (4.1-5.3) 10^6/u L Hgb 9.7 L (11.5-15.3) g/dL Hct 31.7 L (37.0-47.0) % MCV 80.9 L (81-99) fL MCH 24.7 L (28.0-34.0) pg MCHC 30.6 (30.0-36.0) g/dL RDW 13.3 (12.1-15.1) % Plt Count 433 H (130-400) 10^3/c mm MPV 9.8 (7.4-10.4) fL Neut % (Auto) 81.1 % Lymph % (Auto) 10.1 % [place] % (Auto) 7.0 % Eos % (Auto) 1.1 % Baso % (Auto) 0.3 % Neut # (Auto) 11.20 H (1.8-7.7) 10^3/u L Lymph # (Auto) 1.4 (0.8-4.8) 10^3/u L [place] # (Auto) 1.0 H (0.2-0.9) 10^3/u L Eos # (Auto) 0.2 (0.0-0.8) 10^3/u L Baso # (Auto) 0.0 (0.0-0.1) 10^3/u L Nucleated RBC % (a uto) 0 % Nucleated RBCs # 0.0 /100WBC Sodium 138 (136-145) mmol/L Potassium 4.1 (3.5-5.1) mmol/L Chloride 102 (98-107) mmol/L Carbon Dioxide 28 (22-29) mmol/L Anion Gap 12.1 (5-19) BUN 10 (6-20) mg/dL Creatinine 0.6 (0.5-0.9) mg/dL GFR Calculation 119.9 (90-130) mL/min Glucose 102 (65-115) mg/dL Calculated Osmolal ity 285 (285-295) mOsm/k g Lactate (0.5-2.2) mmol/L Calcium 8.9 (8.5-10.5) mg/dL Total Bilirubin 0.5 (0.15-1.2) mg/dL AST 60 H (0-32) U/L ALT 32 (0-33) U/L Alkaline Phosphata se 94 (35-105) IU/L Total Protein 7.2 (6.6-8.7) g/dL Albumin 4.1 (3.5-5.2) g/dL Globulin 3.1 (1.3-4.6) g/dL Lipase 27 (13-60) U/L HCG, Qual Negative (Negative) Urine Color (Yellow) Urine Appearance (CLEAR) Urine pH (5-7) Ur Specific Gravit y (1.005-1.030) Urine Protein (Negative) Urine Glucose (UA) (Normal) Urine Ketones (Negative) Urine Blood (Negative) Urine Nitrate (Negative) Urine Bilirubin (Negative) Urine Urobilinogen (Negative) mg/dL Ur Leukocyte Bev ase (Negative) Urine RBC (0-2) /hpf Urine WBC (0-5) /hpf Ur Squamous Epith Cells (0-5) /hpf Amorphous Sediment /hpf Urine Bacteria (NONE) /hpf 02/11/21 02/11/21 Range/Units 20:42 23:32 WBC (4.0-10.0) 10^3/ uL RBC (4.1-5.3) 10^6/u L Hgb (11.5-15.3) g/dL Hct (37.0-47.0) % MCV (81-99) fL MCH (28.0-34.0) pg MCHC (30.0-36.0) g/dL RDW (12.1-15.1) % Plt Count (130-400) 10^3/c mm MPV (7.4-10.4) fL Neut % (Auto) % Lymph % (Auto) % [place] % (Auto) % Eos % (Auto) % Baso % (Auto) % Neut # (Auto) (1.8-7.7) 10^3/u L Lymph # (Auto) (0.8-4.8) 10^3/u L [place] # (Auto) (0.2-0.9) 10^3/u L Eos # (Auto) (0.0-0.8) 10^3/u L Baso # (Auto) (0.0-0.1) 10^3/u L Nucleated RBC % (a uto) % Nucleated RBCs # /100WBC Sodium (136-145) mmol/L Potassium (3.5-5.1) mmol/L Chloride (98-107) mmol/L Carbon Dioxide (22-29) mmol/L Anion Gap (5-19) BUN (6-20) mg/dL Creatinine (0.5-0.9) mg/dL GFR Calculation (90-130) mL/min Glucose (65-115) mg/dL Calculated Osmolal ity (285-295) mOsm/k g Lactate 1.4 (0.5-2.2) mmol/L Calcium (8.5-10.5) mg/dL Total Bilirubin (0.15-1.2) mg/dL AST (0-32) U/L ALT (0-33) U/L Alkaline Phosphata se (35-105) IU/L Total Protein (6.6-8.7) g/dL Albumin (3.5-5.2) g/dL Globulin (1.3-4.6) g/dL Lipase (13-60) U/L HCG, Qual (Negative) Urine Color Yellow (Yellow) Urine Appearance Clear (CLEAR) Urine pH 7 (5-7) Ur Specific Gravit y 1.010 (1.005-1.030) Urine Protein Neg (Negative) Urine Glucose (UA) Norm (Normal) Urine Ketones Negative (Negative) Urine Blood 3+ H (Negative) Urine Nitrate Negative (Negative) Urine Bilirubin Neg (Negative) Urine Urobilinogen 1 H (Negative) mg/dL Ur Leukocyte Bev ase Negative (Negative) Urine RBC 0-4 H (0-2) /hpf Urine WBC 10-15 H (0-5) /hpf Ur Squamous Epith Cells 0-4 H (0-5) /hpf Amorphous Sediment 1+ /hpf Urine Bacteria Trace (NONE) /hpf Discharge Plan Discharge Patient Disposition: Admitted As Inpatient Admit Provider: Kenny Hernandez Clinical Impression: Acute calculous cholecystitis Condition: Stable Coding Level of Care Code ED Director Of Real Estate for Chg Fwd Exam Detailed
[2021-02-12 06:13] LABS: Basophils % 0.2 %; Eosinophils # 0.2 10^3/uL (0.0-0.8); Eosinophils % 1.8 %; Hematocrit 27.7 % (37.0-47.0); Hemoglobin 8.4 g/dL (11.5-15.3); Lymphocytes # 1.6 10^3/uL (0.8-4.8); Lymphocytes % 17.1 %; Mean Corpuscular HGB Conc 30.3 g/dL (30.0-36.0); Mean Corpuscular Hemoglobin 24.7 pg (28.0-34.0); Mean Corpuscular Volume 81.5 fL (81-99); Mean Platelet Volume 9.6 fL (7.4-10.4); Monocytes # 0.6 10^3/uL (0.2-0.9); Neutrophils # 6.74 10^3/uL (1.8-7.7); Neutrophils % 73.7 %; Nucleated Red Blood Cells % 0 %; Platelet Count 371 10^3/cmm (130-400); Red Cell Distribution Width 13.2 % (12.1-15.1); White Blood Count 9.1 10^3/uL (4.0-10.0)
[2021-02-12 06:40] LABS: Alanine Aminotransferase 51 U/L (0-33); Albumin Level 3.7 g/dL (3.5-5.2); Alkaline Phosphatase 91 IU/L (35-105); Anion Gap 11.9 (5-19); Aspartate Amino Transferase 67 U/L (0-32); Blood Urea Nitrogen 10 mg/dL (6-20); Calcium 8.3 mg/dL (8.5-10.5); Carbon Dioxide 26 mmol/L (22-29); Chloride 106 mmol/L (98-107); Globulin 2.7 g/dL (1.3-4.6); Glucose 80 mg/dL (65-115); Osmolality Calculated 288 mOsm/kg (285-295); Potassium 3.9 mmol/L (3.5-5.1); Sodium 140 mmol/L (136-145); Total Bilirubin 0.5 mg/dL (0.15-1.2); Total Protein 6.4 g/dL (6.6-8.7)
--- NOTE | 2021-02-12 08:18 | PM.HP ---
Providers/Chief Complaint Admitting Physician: Kenny Hernandez MD Primary Care Provider: BRENT Lema Chief Complaint: STOMACH PAIN/HERE RECENTLY History of Present Illness Sacha Metz is a 25 year old female who developed epigastric discomfort yesterday around 5 PM. She said it was so bad that she was doubled over and in tears. She came to the emergency room and an ultrasound revealed borderline thickening of the gallbladder wall associated with some cholelithiasis. The patient was admitted with what was thought to be early acute calculus cholecystitis. The patient has never really had this kind of pain before. She cannot tell me that she has any particular food intolerances other than she does get some epigastric pain after she eats spicy foods. She does not really feel gassy or bloated with her current symptoms. She did get nauseated but never vomited. Review of Systems General: Reports: 10 or more systems reviewed and unremarkable except in HPI and below Const: Denies: fever(s) or chills GI: Reports: abdominal pain and nausea; Denies: vomiting or change in bowel habits : Reports: vaginal bleeding (Ongoing for 3 months, had a partial D&C(could not finish due to bleeding)) Medications/Allergies Home Medications Medication Instructions Recorded Confirmed Last Taken Type ferrous sulfate [FeroSul] 325 mg PO BID@0700,1900 12/09/20 02/11/21 02/09/21 History hydrocodone-acetaminophen 1 tab PO TID PRN #14 tab 02/09/21 02/11/21 02/10/21 Rx medroxyprogesterone [Provera] 10 mg PO DAILY 7 Days #7 tab 02/09/21 02/11/21 02/10/21 Rx ondansetron HCl [Zofran] 8 mg PO Q8H 3 Days #18 tab 02/09/21 02/11/21 02/10/21 Rx Junel FE .03/13 () 1 tab PO DAILY@0800 02/11/21 02/11/21 02/08/21 History Allergies Allergy/AdvReac Type Severity Reaction Status Date / Time No Known Allergies Allergy Verified 02/07/21 15:39 PFSH Acute PFSH: Medical History (Updated 02/12/21 @ 08:42 by Kenny Hernandez MD) Asthma Has had asthma since she was a child and denies any history of intubations or hospitalizations Surgical History (Updated 02/12/21 @ 08:42 by Kenny Hernandez MD) Hx of section x 3 08/10/2013-malpresentation of twin gestation with a leg prolapsed-emergency by Dr. Kali Gates at [facility] [place] 07/19/2014---- repeat for twins performed by Dr. Gates at [facility] [place]. 04/06/2016-repeat with the drainage of left ovarian cyst and bilateral tubal ligation performed by Dr. Cannon at [facility] [place] Hx of tubal ligation 04/06/2016-bilateral tubal ligation performed at time of by Dr. Cannon Family History Mother Diabetes Hypertension Family/Other Cancer Breast cancer maternal cousin Grandmother Diabetes maternal Denies family history of Colon cancer Ovarian cancer Hyperlipidemia Uterine cancer Thyroid condition Stroke Social History Smoking and tobacco status: light tobacco smoker Alcohol intake: never Marital status: Single History of recent travel: No Female Reproductive History: Date of last menstrual period: 01/11/21 Vitals/I&O/Wt Last Vital Signs Temp 98.6 F 02/12/21 07:28 Pulse 82 02/12/21 07:28 Resp 18 02/12/21 07:28 BP 143/85 02/12/21 07:28 Pulse Ox 97 02/12/21 07:28 02/11/21 02/12/21 02/12/21 22:59 06:59 14:59 Intake Total 50 / 50 Balance 50 / 50 Weight last 48 hrs Weight 250 lb Physical Exam Narrative: EXAM NARRATIVE: The patient was encountered in her hospital room. She does not appear to be in any acute distress. The pupils are equal. No carotid bruits are heard. The lungs are clear anteriorly. The heart is regular. The abdomen is obese but is soft. Bowel sounds are hypoactive. The patient does have some moderate epigastric tenderness and some mild to moderate left upper quadrant tenderness. She has moderate tenderness in the right upper quadrant with a positive Marte's sign. No obvious masses are palpated. The extremities reveal no edema. Neurologically the patient appears to be grossly intact Data : 02/12/21 05:52 02/12/21 05:52 Other Labs: Laboratory Tests 02/11/21 02/12/21 20:16 05:52 Total Bilirubin 0.5 AST 67 H ALT 51 H Alkaline Phosphatase 91 Lipase 27 US: Radiologist's impression: Gallbladder ultrasound 02/11/2021 IMPRESSION: 1. Gallstones, borderline thickening of the gallbladder wall measuring 2.9 mm and positive sonographic Marte sign suggests mild gallstone cholecystitis. 2. Fatty infiltration of the liver A&P Assessment and plan (1) Acute calculous cholecystitis: I have discussed gallbladder disease and gallbladder surgery with the patient in detail. Risks of surgery including bleeding, infection, internal organ injury, etc. were all gone over. Both laparoscopic and open methods of cholecystectomy were discussed. The patient seems to understand and would like to proceed with a cholecystectomy today. The patient last had something to eat yesterday afternoon. I will make arrangements for a laparoscopic or possibly open cholecystectomy this morning. Status: Acute Attestations Medical Necessity Statement*: Based on my medical assessment, presenting symptoms and consideration of the scope of surgical therapy, I expect this patient will require treatment in the hospital for a period of time spanning less than 2 midnights, and is therefore being placed in observation status. Coding Level of Care Code Acute Product Finisher for brant Barger Diagnoses Acute calculous cholecystitis K80.00
--- NOTE | 2021-02-12 09:50 | ANES.PREANE2 ---
Pre-Anesthetic Assessment Pre-Anesthetic Assessment: Height/Weight: Height 1.57 m Weight 113.398 kg Temp Pulse Resp BP Pulse Ox 98.6 F 82 16 143/85 97 02/12/21 07:28 02/12/21 07:28 02/12/21 08:26 02/12/21 07:28 02/12/21 08:26 Preop Diagnosis: Cholecystitis Proposed Procedure: Operation Date: 02/12/21 09:45 Proposed Procedures p Laparoscopic Cholecystectomy(Not Applicable) - Kenny Hernandez MD Familial anesthetic complications: inadequate anesthesia during planned requiring general Was Beta Shayy taken within 24 hours: N/A Was Clonidine taken within 24 hours: N/A Last intake: > 8 hrs Social: Social History: No alcohol and No tobacco Exam: Pre-Anes Outpt Exam: alert, oriented x 3, clear to auscultation bilaterally and regular rate & rhythm Airway: Cervical ROM: WNL MP: 1 Dentition: Full Metabolic: Metabolic: Morbid obesity Anesthetic Plan: ASA status: 2 Anesthesia: General Risk of > 500 ml blood loss (7ml/kg in children): No Meds/Allergies Current Medications: Current Medications Generic Name Dose Route Start Last Admin Trade Name Freq PRN Reason Stop Dose Admin Sodium Chloride 1,000 mls @ 150 m ls/hr 02/12/21 02:02 02/12/21 08:25 Sodium Chloride 0.9% IV 150 mls/hr .[id number] JADYN Administration Piperacillin Sod/T azobactam 50 mls @ 12.5 mls /hr 02/12/21 09:00 02/12/21 08:26 Sod 3.375 gm/ So dium Chloride IV 12.5 mls/hr Q8H JADYN Administration Protocol As Directed Morphine Sulfate 4 mg 02/12/21 02:02 02/12/21 08:26 Morphine 4 Mg/Ml Sdv 1 Ml IVP 4 mg Q4H PRN Administration SEVERE PAIN PFSH Anesthesia PFSH: Medical History (Updated 02/12/21 @ 08:42 by Kenny Hernandez MD) Asthma Has had asthma since she was a child and denies any history of intubations or hospitalizations Surgical History (Updated 02/12/21 @ 09:37 by Kenny Hernandez MD) History of dilatation and curettage Hx of section x 3 08/10/2013-malpresentation of twin gestation with a leg prolapsed[place] [facility] [place] repeat for twins [place] Gates [place] [facility] [place] 04/06/2016-repeat with the drainage of left ovarian cyst and bilateral tubal ligation [place] Cannon [place] [facility] [place]x of tubal ligation 04/06/2016-bilateral tubal ligation performed at time of by Dr. Cannon Family History Mother Diabetes Hypertension Family/Other Cancer Breast cancer maternal cousin Grandmother Diabetes maternal Denies family history of Colon cancer Ovarian cancer Hyperlipidemia Uterine cancer Thyroid condition Stroke Social History Smoking and tobacco status: light tobacco smoker Alcohol intake: never Marital status: Single History of recent travel: No Female Reproductive History: Date of last menstrual period: 01/11/21 Data Anesthesia CBC & Chem 7: 02/12/21 05:52 02/12/21 05:52 Other Labs: Laboratory Results - last 48 hr 02/11/21 02/11/21 02/11/21 20:16 20:16 20:16 WBC 13.8 H RBC 3.92 L Hgb 9.7 L Hct 31.7 L MCV 80.9 L MCH 24.7 L MCHC 30.6 RDW 13.3 Plt Count 433 H MPV 9.8 Neut % (Auto) 81.1 Lymph % (Auto) 10.1 [place] % (Auto) 7.0 Eos % (Auto) 1.1 Baso % (Auto) 0.3 Neut # (Auto) 11.20 H Lymph # (Auto) 1.4 [place] # (Auto) 1.0 H Eos # (Auto) 0.2 Baso # (Auto) 0.0 Nucleated RBC % (auto) 0 Nucleated RBCs # 0.0 Sodium 138 Potassium 4.1 Chloride 102 Carbon Dioxide 28 Anion Gap 12.1 BUN 10 Creatinine 0.6 GFR Calculation 119.9 Glucose 102 Calculated Osmolality 285 Lactate Calcium 8.9 Total Bilirubin 0.5 AST 60 H ALT 32 Alkaline Phosphatase 94 Total Protein 7.2 Albumin 4.1 Globulin 3.1 Lipase 27 HCG, Qual Negative Urine Color Urine Appearance Urine pH Ur Specific [place] Urine Protein Urine Glucose (UA) Urine Ketones Urine Blood Urine Nitrate Urine Bilirubin Urine Urobilinogen Ur Leukocyte Esterase Urine RBC Urine WBC Ur Squamous Epith Cells Amorphous Sediment Urine Bacteria 02/11/21 02/11/21 02/12/21 20:42 23:32 05:52 WBC 9.1 RBC 3.40 L Hgb 8.4 L Hct 27.7 L MCV 81.5 MCH 24.7 L MCHC 30.3 RDW 13.2 Plt Count 371 MPV 9.6 Neut % (Auto) 73.7 Lymph % (Auto) 17.1 [place] % (Auto) 7.0 Eos % (Auto) 1.8 Baso % (Auto) 0.2 Neut # (Auto) 6.74 Lymph # (Auto) 1.6 [place] # (Auto) 0.6 Eos # (Auto) 0.2 Baso # (Auto) 0.0 Nucleated RBC % (auto) 0 Nucleated RBCs # 0.0 Sodium Potassium Chloride Carbon Dioxide Anion Gap BUN Creatinine GFR Calculation Glucose Calculated Osmolality Lactate 1.4 Calcium Total Bilirubin AST ALT Alkaline Phosphatase Total Protein Albumin Globulin Lipase HCG, Qual Urine Color Yellow Urine Appearance Clear Urine pH 7 Ur Specific [place] 1.010 Urine Protein Neg Urine Glucose (UA) Norm Urine Ketones Negative Urine Blood 3+ H Urine Nitrate Negative Urine Bilirubin Neg Urine Urobilinogen 1 H Ur Leukocyte Esterase Negative Urine RBC 0-4 H Urine WBC 10-15 H Ur Squamous Epith Cells 0-4 H Amorphous Sediment 1+ Urine Bacteria Trace 02/12/21 05:52 WBC RBC Hgb Hct MCV MCH MCHC RDW Plt Count MPV Neut % (Auto) Lymph % (Auto) [place] % (Auto) Eos % (Auto) Baso % (Auto) Neut # (Auto) Lymph # (Auto) [place] # (Auto) Eos # (Auto) Baso # (Auto) Nucleated RBC % (auto) Nucleated RBCs # Sodium 140 Potassium 3.9 Chloride 106 Carbon Dioxide 26 Anion Gap 11.9 BUN 10 Creatinine 0.5 GFR Calculation 148.0 H Glucose 80 Calculated Osmolality 288 Lactate Calcium 8.3 L Total Bilirubin 0.5 AST 67 H ALT 51 H Alkaline Phosphatase 91 Total Protein 6.4 L Albumin 3.7 Globulin 2.7 Lipase HCG, Qual Urine Color Urine Appearance Urine pH Ur Specific [place] Urine Protein Urine Glucose (UA) Urine Ketones Urine Blood Urine Nitrate Urine Bilirubin Urine Urobilinogen Ur Leukocyte Esterase Urine RBC Urine WBC Ur Squamous Epith Cells Amorphous Sediment Urine Bacteria Cardiac Studies: No Data to Display
--- NOTE | 2021-02-12 10:48 | PM.OP ---
Operative Report Date of procedure: February 12, 2021 Pre-op Diagnosis: Early acute calculus cholecystitis. Post-op diagnosis: same Procedure Done: Laparoscopic cholecystectomy. Specimens removed/disposition: Gallbladder. Surgeon: Kenny Hernandez Anesthesia: General Estimated blood loss (mL): 5 Complications: None. Condition: stable Disposition: PACU Procedure: The patient was brought to the Operating Room and was placed in a supine position on the Operating Room table. General endotracheal anesthesia was induced. The abdomen was prepped and draped in a sterile fashion. A small vertical incision was carried out in the inferior aspect of the umbilicus. Blunt dissection was carried out down to the fascia, which was grasped with a Fredis clamp. A stay suture of 0 Vicryl was placed on either side of the midline and the midline fascia was incised. The underlying peritoneum was opened bluntly and the Suni port was placed directly into the peritoneal cavity and was held in place with the inflatable balloon. The peritoneal cavity was insufflated with carbon dioxide. The laparoscope was used to inspect the abdominal cavity. No gross abnormalities were initially noted. A 5 millimeter port was placed in the epigastrium under direct vision. Two 5-millimeter ports were placed on the right side of the abdomen under direct vision. The gallbladder was grasped and was elevated. The patient had some adhesions in the infundibular region of the gallbladder, but these appeared to be more chronic. They were taken down using blunt dissection with a minimum of cautery to maintain hemostasis. Blunt dissection and hydrodissection were carried out in the infundibular region of the gallbladder and the cystic duct and cystic artery were identified. The gallbladder was partially removed from the liver bed using cautery and the spatula to confirm the anatomy before the structures were clipped and divided. The gallbladder was then removed from the liver bed using cautery and the spatula. After the gallbladder had been removed from the liver bed, the laparoscope was moved to the epigastric port and the gallbladder was removed from the peritoneal cavity through the umbilical port site after being placed in a laparoscopic bag. The stay sutures of Vicryl were tied to each other at the umbilicus, closing the defect so that it was airtight. The perihepatic spaces were irrigated with saline and the liver bed was reinspected. No ongoing problems were seen. The remaining ports were removed from the abdominal wall and the pneumoperitoneum was evacuated. All skin incisions were closed using inverted interrupted sutures of 4-0 Vicryl. Benzoin and Steri-Strips were placed over the incisions and Band-Aids followed. The patient was taken to the Recovery Area in stable condition postoperatively.
--- NOTE | 2021-02-12 10:53 | P.DS_ITS ---
Discharge Providers Date of Admission: 02/12/21 02:02 Date of Discharge: February 12, 2021 Attending Provider at Admission: Kenny Hernandez MD Attending Provider at Discharge: Kenny Hernandez MD Primary Care Provider: BRENT Lema Diagnoses at Discharge Discharge Diagnosis (1) Acute calculous cholecystitis: Status: Acute Reason for Visit Reason for Visit: STOMACH PAIN/HERE RECENTLY Hospital Course Hospital Course This is a 25-year-old white female who developed epigastric and right upper quadrant pain the day prior to presentation. She came to the emergency room and ultrasound findings and laboratory studies were consistent with early acute calculus cholecystitis. The patient was taken to the operating room the same morning and a laparoscopic cholecystectomy was performed. The surgery was without immediate complication. Postoperatively the patient's vital signs remained stable. She was comfortable enough that she wanted to go home. She was instructed with respect to wound care, activity limitations, diet, etc. Arrangements will be made for her to follow-up in my office as an outpatient. Physical Exam Narrative: EXAM NARRATIVE: AVSS. Postoperative incisions look good. Discharge Data Data Completed and Pending: Completed Studies During Hospitalization Category Date Time Status US gall bladder 7 [id number] Urgent Ultrasound 02/11/21 21:18 Completed Pending at discharge Category Date Time Status ES surgery / GI i mages Routine Exams 02/12/21 09:17 Ordered Labs from last 24 hours 02/12/21 02/12/21 02/11/21 05:52 05:52 23:32 WBC 9.1 RBC 3.40 L Hgb 8.4 L Hct 27.7 L MCV 81.5 MCH 24.7 L MCHC 30.3 RDW 13.2 Plt Count 371 MPV 9.6 Neut % (Auto) 73.7 Lymph % (Auto) 17.1 [place] % (Auto) 7.0 Eos % (Auto) 1.8 Baso % (Auto) 0.2 Neut # (Auto) 6.74 Lymph # (Auto) 1.6 [place] # (Auto) 0.6 Eos # (Auto) 0.2 Baso # (Auto) 0.0 Nucleated RBC % (a uto) 0 Nucleated RBCs # 0.0 Sodium 140 Potassium 3.9 Chloride 106 Carbon Dioxide 26 Anion Gap 11.9 BUN 10 Creatinine 0.5 GFR Calculation 148.0 H Glucose 80 Calculated Osmolal ity 288 Lactate Calcium 8.3 L Total Bilirubin 0.5 AST 67 H ALT 51 H Alkaline Phosphata se 91 Total Protein 6.4 L Albumin 3.7 Globulin 2.7 Lipase HCG, Qual Urine Color Yellow Urine Appearance Clear Urine pH 7 Ur Specific [place] 1.010 Urine Protein Neg Urine Glucose (UA) Norm Urine Ketones Negative Urine Blood 3+ H Urine Nitrate Negative Urine Bilirubin Neg Urine Urobilinogen 1 H Ur Leukocyte Bev ase Negative Urine RBC 0-4 H Urine WBC 10-15 H Ur Squamous Epith Cells 0-4 H Amorphous Sediment 1+ Urine Bacteria Trace 02/11/21 02/11/21 02/11/21 20:42 20:16 20:16 WBC RBC Hgb Hct MCV MCH MCHC RDW Plt Count MPV Neut % (Auto) Lymph % (Auto) [place] % (Auto) Eos % (Auto) Baso % (Auto) Neut # (Auto) Lymph # (Auto) [place] # (Auto) Eos # (Auto) Baso # (Auto) Nucleated RBC % (a uto) Nucleated RBCs # Sodium 138 Potassium 4.1 Chloride 102 Carbon Dioxide 28 Anion Gap 12.1 BUN 10 Creatinine 0.6 GFR Calculation 119.9 Glucose 102 Calculated Osmolal ity 285 Lactate 1.4 Calcium 8.9 Total Bilirubin 0.5 AST 60 H ALT 32 Alkaline Phosphata se 94 Total Protein 7.2 Albumin 4.1 Globulin 3.1 Lipase 27 HCG, Qual Negative Urine Color Urine Appearance Urine pH Ur Specific [place] Urine Protein Urine Glucose (UA) Urine Ketones Urine Blood Urine Nitrate Urine Bilirubin Urine Urobilinogen Ur Leukocyte Bev ase Urine RBC Urine WBC Ur Squamous Epith Cells Amorphous Sediment Urine Bacteria 02/11/21 20:16 WBC 13.8 H RBC 3.92 L Hgb 9.7 L Hct 31.7 L MCV 80.9 L MCH 24.7 L MCHC 30.6 RDW 13.3 Plt Count 433 H MPV 9.8 Neut % (Auto) 81.1 Lymph % (Auto) 10.1 [place] % (Auto) 7.0 Eos % (Auto) 1.1 Baso % (Auto) 0.3 Neut # (Auto) 11.20 H Lymph # (Auto) 1.4 [place] # (Auto) 1.0 H Eos # (Auto) 0.2 Baso # (Auto) 0.0 Nucleated RBC % (a uto) 0 Nucleated RBCs # 0.0 Sodium Potassium Chloride Carbon Dioxide Anion Gap BUN Creatinine GFR Calculation Glucose Calculated Osmolal ity Lactate Calcium Total Bilirubin AST ALT Alkaline Phosphata se Total Protein Albumin Globulin Lipase HCG, Qual Urine Color Urine Appearance Urine pH Ur Specific [place] Urine Protein Urine Glucose (UA) Urine Ketones Urine Blood Urine Nitrate Urine Bilirubin Urine Urobilinogen Ur Leukocyte Bev ase Urine RBC Urine WBC Ur Squamous Epith Cells Amorphous Sediment Urine Bacteria Vitals: Last Vital Signs Temp 98 F 02/12/21 09:43 Pulse 82 02/12/21 07:28 Resp 16 02/12/21 08:26 BP 143/85 02/12/21 07:28 Pulse Ox 97 02/12/21 08:26 Discharge Plan Discharge Patient Disposition: Home Condition: Stable Prescriptions: Continued ferrous sulfate [FeroSul] 325 mg (65 mg iron) tablet 325 mg PO BID@0700,1900 RF: 0 Junel FE 1.5/30 (28) 1.5 mg-30 mcg (21)/75 mg (7) tablet 1 tab PO DAILY@0800 RF: 0 medroxyprogesterone [Provera] 10 mg tablet 10 mg PO DAILY 7 Days Qty: 7 RF: 0 ondansetron HCl [Zofran] 4 mg tablet 8 mg PO Q8H 3 Days Qty: 18 RF: 0 hydrocodone-acetaminophen 7.5-325 mg tablet 1 tab PO TID PRN (Reason: pain) Qty: 14 RF: 0 Discharge Orders: Discharge Order (Routine); Ordered 02/12/21 Ordered By: Kenny Hernandez Referrals: Kenny Hernandez MD [Physician] - 7-10 days (Nursing: Please have the patient / family call Dr. Hernandez's office on Sunday ([phone]) and make an appointment for the patient to be seen in 7-10 days.) Discharge Diet: Advance as tolerated Discharge Activity: Limit activity as instructed Patient Instructions: Opioid Safety Activity Restrictions/Additional Instructions: 1. Discharge to home today. 2. Appointment to see Dr. Hernandez in 10-14 days. 3. Bandages / bandaids off tomorrow, leave Steri-Strip(s) on, may shower. 4. Pain medication as previously prescribed. No lifting over 20 pounds, no repetitive bending or twisting, no strenuous pushing / pulling or other heavy activity. Ambulate regularly. May go up and down steps if needed. Discharge Attestations Time Spent in Discharge Care*: less than 30 min Quality Metrics Clinical Quality Measures During this hospital stay, did patient experience: None Coding Level of Care Code Acute g [facility] note Diagnoses Acute calculous cholecystitis K80.00
--- NOTE | 2021-02-12 11:09 | P.PCN_ITS ---
PACU note PACU note: VSS, Good respiratory effort, report to CAREER DEVELOPMENT SPECIALIST Post-Anesthesia Exam: awake
--- NOTE | 2021-02-12 11:09 | PM.PACU ---
PACU note PACU note: VSS, Good respiratory effort, report to ENGINEERING WRITER Post-Anesthesia Exam: awake
[2021-02-12] MEDS: D5-NS 0.45% + KCL 20 mEq 20 MEQ/1,000 ML BAG 100 MEQ IV (12:36)
[2021-02-12] MEDS: heparin 5,000 unit/mL INJ 1 mL 5000 UNIT SUBCUT (12:38)
[2021-02-12] MEDS: HYDROcodone-acetaminophen 5-325 mg Tablet PO (17:02)
[2021-02-12] MEDS: ondansetron 2 mg/ML SDV 2 mL 4 MG IVP (17:06)
--- NOTE | 2021-02-12 18:57 | PC.NURSE ---
PT HAS DONE WELL FOR ME TODAY. MINIMAL COMPLAINTS OF PAIN AFTER SURGERY. PT HAS BEEN UP AND WALKING, TOLERATING FLUIDS WELL, AND HAS PASSED GAS. PT HAS ALSO VOIDED A COUPLE OF TIMES THAT I KNOW OF. PT IS GOOD TO DISCHARGE PER DR CONNOLLY. DISCHARGE INSTRUCTIONS GONE OVER WITH PT. ALL QUESTIONS ANSWERED. PRESCRIPTIONS SENT TO [facility] IN [place] PER PT REQUEST. IV REMOVED. CATHETER INTACT. PT TOLERATED WELL. PT SAFELY DISCHARGED FROM THE HOSPITAL.
--- NOTE | 2021-02-14 19:16 | PC.RESP ---
Smoking Cessation information sent to patient.
== END 2021-02-12 19:01 | disposition home or self-care (01) ==
LOC: ER 20:11 → MEDSURG 02-12 05:11
PROVIDERS: Nurse Practitioner Family; Admitting Provider Surgery; Emergency Provider Emergency Medicine; PCP Nurse Practitioner Family; Visit Provider Surgery
PROC: 0FT44ZZ Resection of Gallbladder, Percutaneous Endoscopic Approach (ICD-10-PCS; CPT 47562; principal; 2021-02-12 09:45)
DX: K80.10 Calculus of gallbladder with chronic cholecystitis without obstruction (principal); E66.01 Morbid (severe) obesity due to excess calories; Z68.42 Body mass index [BMI] 45.0-49.9, adult; J45.909 Unspecified asthma, uncomplicated; F17.210 Nicotine dependence, cigarettes, uncomplicated
CPT/HCPCS: 47562; 12345; 36415; 76705; 80053; 81001; 83605; 83690; 84703; 85025; 88304; 96361; 96365; 96367; 96372; 96375; 96376; 99285; G0378; J0330; J0690; J1100; J1644; J2270; J2405; J2543; J2704; J2710; J3010; J3490; J7030

== ENCOUNTER 2021-04-21 00:44 | Emergency (ER) | payer MEDICAID, SELFPAY ==
[2021-04-21 00:52] VITALS: BP 140/106; PULSE 91; RESP 16; TEMP 36.8; O2SAT 98; BMI 60.5
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
[2021-04-21] MEDS: acetaminophen 500 mg Tablet 1000 MG PO (01:50)
[2021-04-21 01:57] VITALS: BP 150/87; PULSE 86; RESP 18; O2SAT 100
== END 2021-04-21 01:58 | disposition home or self-care (01) ==
PROVIDERS: Emergency Provider Physician Assistant; PCP Nurse Practitioner Family
DX: M25.512 Pain in left shoulder (principal); S69.92XA Unspecified injury of left wrist, hand and finger(s), initial encounter; F17.210 Nicotine dependence, cigarettes, uncomplicated; Y04.2XXA Assault by strike against or bumped into by another person, initial encounter
CPT/HCPCS: 29125; 71045; 73030; 73110; 73130; 99283

== ENCOUNTER → 2021-05-10 17:29 | Outpatient (BNVA) | payer MEDICAID, SELFPAY | PROVIDERS: PCP Nurse Practitioner Family; Visit Provider Nurse Practitioner Family | DX: E86.0 Dehydration (principal); E66.01 Morbid (severe) obesity due to excess calories | CPT/HCPCS: 36416; 80053; 81003; 82962; 83036; 84443; 85025; 87086 ==

== ENCOUNTER → 2021-05-18 11:47 | Outpatient (BNVA) | payer MEDICAID, SELFPAY | PROVIDERS: PCP Nurse Practitioner Family; Visit Provider Nurse Practitioner Family | DX: Z20.822 Contact with and (suspected) exposure to COVID-19 (principal); R05 Cough | CPT/HCPCS: 87635 ==

== ENCOUNTER → 2021-08-09 18:08 | Outpatient (BNVA) | payer MEDICAID, SELFPAY | PROVIDERS: PCP Nurse Practitioner Family; Visit Provider Nurse Practitioner Family | DX: J02.9 Acute pharyngitis, unspecified (principal); E66.01 Morbid (severe) obesity due to excess calories; J45.909 Unspecified asthma, uncomplicated; R03.0 Elevated blood-pressure reading, without diagnosis of hypertension | CPT/HCPCS: 80053; 82607; 82728; 83550; 85025 ==

== ENCOUNTER 2021-08-19 09:35 | Emergency (ER) | payer MEDICAID, SELFPAY ==
[2021-08-19 09:46] VITALS: BP 161/90; PULSE 96; RESP 19; TEMP 36.9; O2SAT 96; BMI 58.5
[2021-08-19 10:10] VITALS: BP 141/86; PULSE 99; RESP 16; TEMP 36.9; O2SAT 99
--- NOTE | 2021-08-19 10:13 | ED_ITS ---
Documented by User: KIMBERLY Erwin 08/20/21 07:31 HPI - Weakness General: Chief complaint: Weakness Stated complaint: SHAKY, WEAK, FATIGUE/THINKS IRON ISSUE:SENT BY PCP Time Seen by Provider: 08/19/21 09:51 History of Present Illness: HPI Narrative: Patient is a 25-year-old female comes to the ED with fatigue generalized weakness. Patient was told by her PCP that her hemoglobin levels were low. Patient has a history of iron deficiency anemia and asthma. Patient ran out of her iron supplements and has not been taking them for approximately 1-2 weeks. She says for the past 2 weeks she has noticed she has been sleepy, feels cold, weakness and fatigue. She says she does not have much energy when she gets up and moves around. Denies any fever, chills, nausea/vomiting, chest pain, shortness of breath, UTI symptoms. She endorses having chronic diarrhea. Patient says she is currently on her period and it has been going on for the past 7 days and she describes it as heavy bleeding. bleeding has slowed down today. Associated symptoms: Denies chest pain, chills, dysuria, fever(s), headache(s), nausea or vomiting Review of Systems Const: Reports: fatigue (fatigue and generalized weakness) and daytime sleepiness; Denies: fever(s) or chills Eyes: Denies: change in vision or eye discomfort ENMT: Denies: throat pain, odynophagia, nasal discharge or nasal congestion Card: Denies: chest pain, palpitations, edema, swelling of feet/ankles, dyspnea on exertion or orthopnea Resp: Denies: dyspnea, productive cough or non-productive cough GI: Denies: abdominal pain, nausea, vomiting, diarrhea, constipation or hematochezia : Reports: change in menstrual flow (heavy bleeding during current menstruation); Denies: flank pain, dysuria or hematuria Musc: Denies: neck pain, back pain or extremity swelling Skin/Breast: Denies: rash or new lesions Neuro: Denies: headache(s), numbness in extremities or weakness in extremities PFS ED PFSH: Medical History Asthma Has had asthma since she was a child and denies any history of intubations or hospitalizations Surgical History History of dilatation and curettage 01/20/2021----> hysteroscopy D&C performed by Dr. Murphy at [facility] for abnormal uterine bleeding-pathology showed secretory endometrium without malignancy. Hysteroscopy was complicated by the fact that patient was bleeding with just thick fluffy endometrium identified without obvious lesions Hx of section x 3 08/10/2013-malpresentation of twin gestation with a leg prolapsed-emergency by Dr. Kali Gates at [facility] 07/19/2014---- repeat for twins performed by Dr. Gates at [facility]. 04/06/2016-repeat with the drainage of left ovarian cyst and bilateral tubal ligation performed by Dr. Cannon at [facility] Hx of tubal ligation 04/06/2016-bilateral tubal ligation performed at time of by Dr. Cannon Family History Mother Diabetes Hypertension Family/Other Cancer Breast cancer maternal cousin Grandmother Diabetes maternal Denies family history of Colon cancer Ovarian cancer Hyperlipidemia Uterine cancer Thyroid condition Stroke Social History Smoking and tobacco status: never smoked Second hand smoke exposure: Yes Alcohol intake: never Lives independently: Yes Household members: children Marital status: Single service: No Current occupational status: unemployed History of recent travel: No Current gender identity: Female Female Reproductive History: Date of last menstrual period: 03/22/21 Physical Exam Const: COMMON NORMALS: no acute distress, patient oriented x3 and alert GENERAL APPEARANCE: cooperative and comfortable NUTRITIONAL APPEARANCE: obese HENMT: COMMON NORMALS: normocephalic HEAD & SCALP: normocephalic MOUTH: Normal oral and palatal mucosa present THROAT: posterior oropharynx normal and uvula midline Eye: COMMON NORMALS: Equal, round and reactive pupils present PUPIL: Yes Equal, round and reactive pupils present Neck/C-Spine: COMMON NORMALS: supple GENERAL: Yes normal visual inspection Resp: COMMON NORMALS: normal respiratory effort, No retractions, No use of accessory muscles and clear to auscultation bilaterally AUSCULTATION: clear to auscultation bilaterally Cardio: COMMON NORMALS: regular rate, regular rhythm, S1 normal heart sound present, S2 normal heart sound present, No gallops present (Cardio), No clicks present (Cardio), No murmurs present (Cardio) and Peripheral pulses 2+ throughout RATE: regular rate RHYTHM: regular rhythm HEART SOUNDS: S1 normal heart sound present and S2 normal heart sound present PERIPHERAL PULSES: Peripheral pulses 2+ throughout GI: COMMON NORMALS: Normal to inspection, nondistended, normoactive bowel sounds present, Soft to palpation, non-tender and no masses PALPATION: Yes Soft to palpation : COMMON NORMALS: Yes no CVA tenderness BLADDER/KIDNEY EXAM: Yes no CVA tenderness Back/Pelvis: COMMON NORMALS: no CVA tenderness Extremity: COMMON NORMALS: normal to inspection Neuro: COMMON NORMALS: patient oriented x3 and moves all extremities SENSORIUM/ORIENTATION: Yes alert Skin: GENERAL SKIN EXAM: dry skin Course Vital Signs: Vital signs: Vital Signs Temperature 98.5 F 08/19/21 10:10 Pulse Rate 99 08/19/21 10:10 Respiratory Rate 16 08/19/21 10:10 Blood Pressure 141/86 08/19/21 10:10 Pulse Oximetry 99 08/19/21 10:10 MDM - Weakness MDM Narrative: Medical decision making narrative: Patient is a 25-year-old female comes to the ED with fatigue and weakness. She states she has a history of iron deficiency anemia. Denies any fever, chills, shortness of breath, chest pain, palpitations, nausea/vomiting. She is currently on her period and says it has been heavy this week but today it is slowing down. She takes iron supplements but has been out of them for the past week and a half and just got a new prescription from her PCP that she has not filled yet. Patient's vitals are stable. She appears nontoxic and in no acute distress or pain. Rest of exam is benign. Hemoglobin level 9.1 but the rest labs are unremarkable. Patient was diagnosed with anemia she was discharged home and told to follow-up with her PCP in the next 1 to 3 days for reevaluation and to have her hemoglobin level rechecked. She was also told to start taking her iron supplements as prescribed. She was encouraged to return to ED if vaginal bleeding worsens and symptoms worsen. Patient understood and agreed with plan. Lab Data: Attestation: I reviewed the patient's lab results. Labs: Lab Results 1108/19/21 08/19/21 10:15 10:15 10:15 WBC 7.7 10^3/uL 10^3/ uL (4.0-10.0) RBC 4.19 10^6/uL 10^6 /uL (4.1-5.3) Hgb 9.1 g/dL L g/dL (11.5-15.3) Hct 30.5 % L % (37.0-47.0) MCV 72.8 fl L fl (81-99) MCH 21.7 pg L pg (28.0-34.0) MCHC 29.8 g/dL L g/dL (30.0-36.0) RDW 16.2 % H % (12.1-15.1) Plt Count 250 10^3/cmm 10^3 /cmm (130-400) MPV 9.7 fL fL (7.4-10.4) Neut % (Auto) 51.5 % % Lymph % (Auto) 39.3 % % [place] % (Auto) 7.1 % % Eos % (Auto) 1.2 % % Baso % (Auto) 0.4 % % Neut # (Auto) 3.98 10^3/uL 10^3 /uL (1.8-7.7) Lymph # (Auto) 3.0 10^3/uL 10^3/ uL (0.8-4.8) [place] # (Auto) 0.6 10^3/uL 10^3/ uL (0.2-0.9) Eos # (Auto) 0.1 10^3/uL 10^3/ uL (0.0-0.8) Baso # (Auto) 0.0 10^3/uL 10^3/ uL (0.0-0.1) Nucleated RBC % (a uto) 0 % % Nucleated RBCs # 0.0 /100WBC /100W BC Sodium 138 mmol/L mmol/L (136-145) Potassium 3.8 mmol/L mmol/L (3.5-5.1) Chloride 102 mmol/L mmol/L (98-107) Carbon Dioxide 25 mmol/L mmol/L (22-29) Anion Gap 14.8 (5-19) BUN 6 mg/dL mg/dL (6-20) Creatinine 0.5 mg/dL mg/dL (0.5-0.9) GFR Calculation 148.0 mL/min H mL /min (90-130) Glucose 85 mg/dL mg/dL (65-115) Calculated Osmolal ity 283 mOsm/kg L mOs m/kg (285-295) Calcium 9.0 mg/dL mg/dL (8.5-10.5) Total Bilirubin 0.3 mg/dL mg/dL (0.15-1.2) AST 50 U/L H U/L (0-32) ALT 53 U/L H U/L (0-33) Alkaline Phosphata se 71 IU/L IU/L (35-105) Total Protein 7.4 g/dL g/dL (6.6-8.7) Albumin 3.9 g/dL g/dL (3.5-5.2) Globulin 3.5 g/dL g/dL (1.3-4.6) HCG, Qual Negative (Negative) Urine Color Urine Appearance Urine pH Ur Specific Gravit y Urine Protein Urine Glucose (UA) Urine Ketones Urine Blood Urine Nitrate Urine Bilirubin Urine Urobilinogen Ur Leukocyte Bev ase Urine RBC Urine WBC Ur Squamous Epith Cells Amorphous Sediment Urine Bacteria 08/19/21 10:15 WBC RBC Hgb Hct MCV MCH MCHC RDW Plt Count MPV Neut % (Auto) Lymph % (Auto) [place] % (Auto) Eos % (Auto) Baso % (Auto) Neut # (Auto) Lymph # (Auto) [place] # (Auto) Eos # (Auto) Baso # (Auto) Nucleated RBC % (a uto) Nucleated RBCs # Sodium Potassium Chloride Carbon Dioxide Anion Gap BUN Creatinine GFR Calculation Glucose Calculated Osmolal ity Calcium Total Bilirubin AST ALT Alkaline Phosphata se Total Protein Albumin Globulin HCG, Qual Urine Color Brown (Yellow) Urine Appearance Cloudy (CLEAR) Urine pH 6 (5-7) Ur Specific Gravit y 1.010 (1.005-1.030) Urine Protein Neg (Negative) Urine Glucose (UA) Norm (Normal) Urine Ketones Negative (Negative) Urine Blood 3+ H (Negative) Urine Nitrate Negative (Negative) Urine Bilirubin Neg (Negative) Urine Urobilinogen 1 mg/dL H mg/dL (Negative) Ur Leukocyte Bev ase 1+ H (Negative) Urine RBC >100 /hpf H /hpf (0-2) Urine WBC 10-15 /hpf H /hpf (0-5) Ur Squamous Epith Cells 0-4 /hpf H /hpf (0-5) Amorphous Sediment Not Reportable Urine Bacteria 1+ /hpf H /hpf (NONE) Discharge Plan Discharge Patient Disposition: Home Clinical Impression: Anemia Qualifiers: Anemia type: iron deficiency Iron deficiency anemia type: unspecified iron deficiency Qualified Code(s): D50.9 - Iron deficiency anemia, unspecified Condition: Stable Prescriptions: No Action cyclobenzaprine 10 mg tablet 10 mg PO TID PRN (Reason: muscle spasm) Qty: 20 RF: 0 ondansetron HCl [Zofran] 4 mg tablet 4 mg PO Q8H PRN (Reason: nausea and vomiting) 10 Days Qty: 30 RF: 0 diclofenac sodium 75 mg tablet,delayed release (DR/EC) 75 mg PO BID PRN (Reason: pain) Qty: 30 RF: 0 Junel FE 1.5/30 (28) 1.5 mg-30 mcg (21)/75 mg (7) tablet 1 tab PO DAILY@0800 Qty: 168 RF: 0 albuterol sulfate [ProAir HFA] 90 mcg/actuation HFA aerosol inhaler 1 puff inhalation QID PRN (Reason: shortness of breath or wheezing) Qty: 8.5 RF: 6 budesonide-formoterol [Symbicort] 160-4.5 mcg/actuation HFA aerosol inhaler 2 puff inhalation BID Qty: 10.2 RF: 6 ferrous sulfate 325 mg (65 mg iron) tablet 325 mg PO BID 90 Days Qty: 180 RF: 1 Discharge Orders: Discharge ED (Routine); Ordered 08/19/21 Ordered By: Jose Mosquera Referrals: Karyna Shell FNP [Primary Care Provider] - Discharge Diet: Regular Discharge Activity: Resume usual activity Patient Instructions: Iron Supplements (By mouth), Iron Rich Diet (ED), Anemia (ED) Activity Restrictions/Additional Instructions: Follow-up with medical provider as directed in 2 to 3 days for reevaluation. Have PCP recheck your CBC lab and hemoglobin levels. Take medications as prescribed and make sure you are with your new iron supplement prescription and start taking today. Return to the ER or your medical provider if condition worsens. Please read and understand discharge instructions. Thank you for choosing [facility] for your healthcare needs today. Please realize this is an emergency room and that we are providing you with a medical screening exam and this may not be complete and all inclusive of all the testing and or work up that you may need to determine your ailment or severity of your illness. It is very important that you follow up as instructed or that you return to the Emergency Department should you have concerns or if your condition changes or worsens in any way. Coding Level of Care Code ED Wood Scrap Handler for Chg Fwd Exam Comprehensive Documented by User: Yo Rosario DO 08/25/21 09:50 HPI - Weakness General: Chief complaint: Weakness Stated complaint: SHAKY, WEAK, FATIGUE/THINKS IRON ISSUE:SENT BY PCP Time Seen by Provider: 08/19/21 09:51 PFSH ED PFSH: Medical History Asthma Has had asthma since she was a child and denies any history of intubations or hospitalizations Surgical History History of dilatation and curettage 01/20/2021----> hysteroscopy D&C performed by Dr. Murphy at [facility] for abnormal uterine bleeding-pathology showed secretory endometrium without malignancy. Hysteroscopy was complicated by the fact that patient was bleeding with just thick fluffy endometrium identified without obvious lesions Hx of section x 3 08/10/2013-malpresentation of twin gestation with a leg prolapsed-emergency by Dr. Kali Gates at [facility] 07/19/2014---- repeat for twins performed by Dr. Gates at [facility]. 04/06/2016-repeat with the drainage of left ovarian cyst and bilateral tubal ligation performed by Dr. Cannon at [facility] Hx of tubal ligation 04/06/2016-bilateral tubal ligation performed at time of by Dr. Cannon Family History Mother Diabetes Hypertension Family/Other Cancer Breast cancer maternal cousin Grandmother Diabetes maternal Denies family history of Colon cancer Ovarian cancer Hyperlipidemia Uterine cancer Thyroid condition Stroke Social History Smoking and tobacco status: never smoked Second hand smoke exposure: Yes Alcohol intake: never Lives independently: Yes Household members: children Marital status: Single service: No Current occupational status: unemployed History of recent travel: No Current gender identity: Female Course Vital Signs: Vital signs: Vital Signs Temperature 98.5 F 08/19/21 10:10 Pulse Rate 99 08/19/21 10:10 Respiratory Rate 16 08/19/21 10:10 Blood Pressure 141/86 08/19/21 10:10 Pulse Oximetry 99 08/19/21 10:10 MDM - Weakness MDM Narrative: Medical decision making narrative: Chart reviewed agree with assessment and plan Lab Data: Labs: Lab Results 08/19/21 08/19/21 08/19/21 10:15 10:15 10:15 WBC 7.7 10^3/uL 10^3/ uL (4.0-10.0) RBC 4.19 10^6/uL 10^6 /uL (4.1-5.3) Hgb 9.1 g/dL L g/dL (11.5-15.3) Hct 30.5 % L % (37.0-47.0) MCV 72.8 fl L fl (81-99) MCH 21.7 pg L pg (28.0-34.0) MCHC 29.8 g/dL L g/dL (30.0-36.0) RDW 16.2 % H % (12.1-15.1) Plt Count 250 10^3/cmm 10^3 /cmm (130-400) MPV 9.7 fL fL (7.4-10.4) Neut % (Auto) 51.5 % % Lymph % (Auto) 39.3 % % [place] % (Auto) 7.1 % % Eos % (Auto) 1.2 % % Baso % (Auto) 0.4 % % Neut # (Auto) 3.98 10^3/uL 10^3 /uL (1.8-7.7) Lymph # (Auto) 3.0 10^3/uL 10^3/ uL (0.8-4.8) [place] # (Auto) 0.6 10^3/uL 10^3/ uL (0.2-0.9) Eos # (Auto) 0.1 10^3/uL 10^3/ uL (0.0-0.8) Baso # (Auto) 0.0 10^3/uL 10^3/ uL (0.0-0.1) Nucleated RBC % (a uto) 0 % % Nucleated RBCs # 0.0 /100WBC /100W BC Sodium 138 mmol/L mmol/L (136-145) Potassium 3.8 mmol/L mmol/L (3.5-5.1) Chloride 102 mmol/L mmol/L (98-107) Carbon Dioxide 25 mmol/L mmol/L (22-29) Anion Gap 14.8 (5-19) BUN 6 mg/dL mg/dL (6-20) Creatinine 0.5 mg/dL mg/dL (0.5-0.9) GFR Calculation 148.0 mL/min H mL /min (90-130) Glucose 85 mg/dL mg/dL (65-115) Calculated Osmolal ity 283 mOsm/kg L mOs m/kg (285-295) Calcium 9.0 mg/dL mg/dL (8.5-10.5) Total Bilirubin 0.3 mg/dL mg/dL (0.15-1.2) AST 50 U/L H U/L (0-32) ALT 53 U/L H U/L (0-33) Alkaline Phosphata se 71 IU/L IU/L (35-105) Total Protein 7.4 g/dL g/dL (6.6-8.7) Albumin 3.9 g/dL g/dL (3.5-5.2) Globulin 3.5 g/dL g/dL (1.3-4.6) HCG, Qual Negative (Negative) Urine Color Urine Appearance Urine pH Ur Specific Gravit y Urine Protein Urine Glucose (UA) Urine Ketones Urine Blood Urine Nitrate Urine Bilirubin Urine Urobilinogen Ur Leukocyte Bev ase Urine RBC Urine WBC Ur Squamous Epith Cells Amorphous Sediment Urine Bacteria 08/19/21 10:15 WBC RBC Hgb Hct MCV MCH MCHC RDW Plt Count MPV Neut % (Auto) Lymph % (Auto) [place] % (Auto) Eos % (Auto) Baso % (Auto) Neut # (Auto) Lymph # (Auto) [place] # (Auto) Eos # (Auto) Baso # (Auto) Nucleated RBC % (a uto) Nucleated RBCs # Sodium Potassium Chloride Carbon Dioxide Anion Gap BUN Creatinine GFR Calculation Glucose Calculated Osmolal ity Calcium Total Bilirubin AST ALT Alkaline Phosphata se Total Protein Albumin Globulin HCG, Qual Urine Color Brown (Yellow) Urine Appearance Cloudy (CLEAR) Urine pH 6 (5-7) Ur Specific Gravit y 1.010 (1.005-1.030) Urine Protein Neg (Negative) Urine Glucose (UA) Norm (Normal) Urine Ketones Negative (Negative) Urine Blood 3+ H (Negative) Urine Nitrate Negative (Negative) Urine Bilirubin Neg (Negative) Urine Urobilinogen 1 mg/dL H mg/dL (Negative) Ur Leukocyte Bev ase 1+ H (Negative) Urine RBC >100 /hpf H /hpf (0-2) Urine WBC 10-15 /hpf H /hpf (0-5) Ur Squamous Epith Cells 0-4 /hpf H /hpf (0-5) Amorphous Sediment Not Reportable Urine Bacteria 1+ /hpf H /hpf (NONE) Discharge Plan Discharge Patient Disposition: Home Clinical Impression: Anemia Qualifiers: Anemia type: iron deficiency Iron deficiency anemia type: unspecified iron deficiency Qualified Code(s): D50.9 - Iron deficiency anemia, unspecified Condition: Stable Prescriptions: No Action cyclobenzaprine 10 mg tablet 10 mg PO TID PRN (Reason: muscle spasm) Qty: 20 RF: 0 ondansetron HCl [Zofran] 4 mg tablet 4 mg PO Q8H PRN (Reason: nausea and vomiting) 10 Days Qty: 30 RF: 0 diclofenac sodium 75 mg tablet,delayed release (DR/EC) 75 mg PO BID PRN (Reason: pain) Qty: 30 RF: 0 Junel FE 1.5/30 (28) 1.5 mg-30 mcg (21)/75 mg (7) tablet 1 tab PO DAILY@0800 Qty: 168 RF: 0 albuterol sulfate [ProAir HFA] 90 mcg/actuation HFA aerosol inhaler 1 puff inhalation QID PRN (Reason: shortness of breath or wheezing) Qty: 8.5 RF: 6 budesonide-formoterol [Symbicort] 160-4.5 mcg/actuation HFA aerosol inhaler 2 puff inhalation BID Qty: 10.2 RF: 6 ferrous sulfate 325 mg (65 mg iron) tablet 325 mg PO BID 90 Days Qty: 180 RF: 1 Discharge Orders: Discharge ED (Routine); Ordered 08/19/21 Ordered By: Jose Mosquera Referrals: Karyna Shell FNP [Primary Care Provider] - Discharge Diet: Regular Discharge Activity: Resume usual activity Patient Instructions: Iron Supplements (By mouth), Iron Rich Diet (ED), Anemia (ED) Activity Restrictions/Additional Instructions: Follow-up with medical provider as directed in 2 to 3 days for reevaluation. Have PCP recheck your CBC lab and hemoglobin levels. Take medications as prescribed and make sure you are with your new iron supplement prescription and start taking today. Return to the ER or your medical provider if condition worsens. Please read and understand discharge instructions. Thank you for choosing [facility] for your healthcare needs today. Please realize this is an emergency room and that we are providing you with a medical screening exam and this may not be complete and all inclusive of all the testing and or work up that you may need to determine your ailment or severity of your illness. It is very important that you follow up as instructed or that you return to the Emergency Department should you have concerns or if your condition changes or worsens in any way. Coding Level of Care Code ED Wood Scrap Handler for Marlin Barger Exam Comprehensive
[2021-08-19 10:27] LABS: Basophils % 0.4 %; Eosinophils # 0.1 10^3/uL (0.0-0.8); Eosinophils % 1.2 %; Hematocrit 30.5 % (37.0-47.0); Hemoglobin 9.1 g/dL (11.5-15.3); Lymphocytes % 39.3 %; Mean Corpuscular HGB Conc 29.8 g/dL (30.0-36.0); Mean Corpuscular Hemoglobin 21.7 pg (28.0-34.0); Mean Corpuscular Volume 72.8 fl (81-99); Mean Platelet Volume 9.7 fL (7.4-10.4); Monocytes # 0.6 10^3/uL (0.2-0.9); Monocytes % 7.1 %; Neutrophils # 3.98 10^3/uL (1.8-7.7); Neutrophils % 51.5 %; Nucleated Red Blood Cells % 0 %; Platelet Count 250 10^3/cmm (130-400); Red Blood Count 4.19 10^6/uL (4.1-5.3); Red Cell Distribution Width 16.2 % (12.1-15.1); White Blood Count 7.7 10^3/uL (4.0-10.0)
[2021-08-19 10:46] LABS: Alanine Aminotransferase 53 U/L (0-33); Albumin Level 3.9 g/dL (3.5-5.2); Alkaline Phosphatase 71 IU/L (35-105); Anion Gap 14.8 (5-19); Aspartate Amino Transferase 50 U/L (0-32); Blood Urea Nitrogen 6 mg/dL (6-20); Carbon Dioxide 25 mmol/L (22-29); Chloride 102 mmol/L (98-107); Globulin 3.5 g/dL (1.3-4.6); Glucose 85 mg/dL (65-115); Osmolality Calculated 283 mOsm/kg (285-295); Potassium 3.8 mmol/L (3.5-5.1); Sodium 138 mmol/L (136-145); Total Bilirubin 0.3 mg/dL (0.15-1.2); Total Protein 7.4 g/dL (6.6-8.7)
[2021-08-19 10:49] LABS: HCG, Serum Qual Negative (Negative)
[2021-08-19 11:04] LABS: Bilirubin Urine Neg (Negative); Blood Urine 3+ (Negative); Glucose Urine UA Norm (Normal); Ketones Urine Negative (Negative); Nitrate Urine Negative (Negative); Protein Urine Neg (Negative); Urine Appearance Cloudy (CLEAR); Urine Color Brown (Yellow); pH Urine 6 (5-7)
[2021-08-19 11:05] LABS: Add Urine Microscopic? YES; Leukocyte Esterase Urine 1+ (Negative); Urobilinogen Urine 1 mg/dL (Negative)
[2021-08-19 11:15] LABS: Slide Review Slide Review Perform
[2021-08-19 11:35] LABS: Add Urine Culture? Yes; Bacteria Urine 1+ /hpf; RBC Urine >100 /hpf (0-2); Squamous Epithelial Cell Urine 0-4 /hpf (0-5)
== END 2021-08-19 12:17 | disposition home or self-care (01) ==
PROVIDERS: Emergency Provider Physician Assistant; PCP Nurse Practitioner Family
DX: D50.9 Iron deficiency anemia, unspecified (principal); Z77.22 Contact with and (suspected) exposure to environmental tobacco smoke (acute) (chronic)
CPT/HCPCS: 80053; 81001; 84703; 85025; 87077; 87086; 87186; 99283; 99291

== ENCOUNTER → 2021-08-22 11:20 | Outpatient (BNVA) | payer MEDICAID, SELFPAY | PROVIDERS: PCP Nurse Practitioner Family; Visit Provider Family Medicine | DX: D50.9 Iron deficiency anemia, unspecified (principal) | CPT/HCPCS: 85025 ==

== ENCOUNTER → 2021-08-23 11:55 | Outpatient (BNVA) | payer MEDICAID, SELFPAY | PROVIDERS: PCP Nurse Practitioner Family; Visit Provider Nurse Practitioner Family | DX: D50.9 Iron deficiency anemia, unspecified (principal); J02.9 Acute pharyngitis, unspecified | CPT/HCPCS: 80053 ==

== ENCOUNTER → 2021-08-24 08:27 | Outpatient (BNVA) | payer MEDICAID, SELFPAY | PROVIDERS: PCP Nurse Practitioner Family; Visit Provider Nurse Practitioner Family | DX: R74.8 Abnormal levels of other serum enzymes (principal) | CPT/HCPCS: 82150; 83690 ==

== ENCOUNTER → 2021-10-10 13:22 | Outpatient (BNVA) | payer MEDICAID, SELFPAY | PROVIDERS: PCP Nurse Practitioner Family; Visit Provider Nurse Practitioner Family | DX: D64.9 Anemia, unspecified (principal); R55 Syncope and collapse; R53.83 Other fatigue; R53.1 Weakness; R42 Dizziness and giddiness; E61.1 Iron deficiency; R11.0 Nausea | CPT/HCPCS: 80053; 82607; 82746; 83550 ==

== ENCOUNTER → 2021-10-24 16:42 | Outpatient (BNVA) | payer MEDICAID, SELFPAY | PROVIDERS: PCP Nurse Practitioner Family; Visit Provider Nurse Practitioner Family | DX: K92.1 Melena (principal) | CPT/HCPCS: 80053; 82607; 82728; 82746; 83550; 85025 ==

== ENCOUNTER → 2021-10-25 10:54 | Outpatient (BNVA) | payer MEDICAID, SELFPAY | PROVIDERS: PCP Nurse Practitioner Family; Visit Provider Surgery | DX: Z11.52 Encounter for screening for COVID-19 (principal) | CPT/HCPCS: 87635 ==

== ENCOUNTER 2021-10-26 08:21 | Outpatient (CLI) | payer MEDICAID, SELFPAY ==
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
== END 2021-10-26 08:22 | disposition home or self-care (01) ==
LOC: ONCMED 08:27
PROVIDERS: PCP Nurse Practitioner Family; Visit Provider Internal Medicine Medical Oncology
DX: D50.9 Iron deficiency anemia, unspecified (principal); F41.9 Anxiety disorder, unspecified; F41.0 Panic disorder [episodic paroxysmal anxiety]; J45.909 Unspecified asthma, uncomplicated; Z79.899 Other long term (current) drug therapy; Z87.891 Personal history of nicotine dependence
CPT/HCPCS: 99205

== ENCOUNTER 2021-10-28 07:22 | Day surgery (SDC) | payer MEDICAID, SELFPAY ==
[2021-10-26 12:37] VITALS: BMI 51.0
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
[2021-10-28 08:13] VITALS: BP 127/94; PULSE 98; RESP 18; TEMP 36.6; O2SAT 100
[2021-10-28] MEDS: sodium chloride 0.9% 1,000 ML 30 ML IV (08:14)
[2021-10-28 08:19] LABS: OR HCG Qualitative Urine Negative (Negative)
--- NOTE | 2021-10-28 09:04 | W.PM.OPSFHP ---
Same Day Surgery H&P Indication for Procedure/HPI DATE OF PROCEDURE: October 28, 2021 CHIEF COMPLAINT/INDICATIONFOR SURGICAL PROCEDURE: colonoscopy/EGD for anemia PREOP DIAGNOSIS: upper gi symptoms PLANNED PROCEDURE: Operation Date: 10/28/21 09:00 Proposed Procedures p EGD/Colon 03708 R11.0(Not Applicable) - Sheng Ralph MD s Colonoscopy 32247 D50.9(Not Applicable) - Sheng Ralph MD Medications/Allergies* Allergies/Adverse Reactions Allergy/AdvReac Type Severity Reaction Status Date / Time No Known Allergies Allergy Verified 10/26/21 12:34 Current Medications: Generic Name Dose Route Start Last Admin Trade Name Freq PRN Reason Stop Dose Admin Sodium Chloride 1,000 mls @ 30 mls/hr 10/28/21 07:45 10/28/21 08:14 Sodium Chloride 0.9% IV 10/29/21 07:44 30 mls/hr .Q24H JADYN Administration Pertinent History/Comorbid Conditions* Medical History (Updated 10/24/21 @ 16:14 by BRENT Lema) Asthma Has had asthma since she was a child and denies any history of intubations or hospitalizations Surgical History (Updated 09/23/21 @ 10:40 by Sheng Ralph MD) History of dilatation and curettage 01/20/2021----> hysteroscopy D&C performed by Dr. Murphy at [facility] [place] for abnormal uterine bleeding-pathology showed secretory endometrium without malignancy. Hysteroscopy was complicated by the fact that patient was bleeding with just thick fluffy endometrium identified without obvious lesions Hx of section x 3 08/10/2013-malpresentation of twin gestation with a leg prolapsed-emergency by Dr. Kali Gates at [facility] [place] 07/19/2014---- repeat for twins performed by Dr. Gates at [facility] [place]. 04/06/2016-repeat with the drainage of left ovarian cyst and bilateral tubal ligation performed by Dr. Cannon at [facility] [place] Hx of tubal ligation 04/06/2016-bilateral tubal ligation performed at time of by Dr. Cannon Status post laparoscopic cholecystectomy Family History (Updated 01/03/21 @ 09:29 by Liliam Giles RN) Diabetes Mother Grandmother maternal Breast cancer Family/Other maternal cousin Cancer Family/Other Hypertension Mother Denies family history of Colon cancer Ovarian cancer Hyperlipidemia Uterine cancer Thyroid condition Stroke Social History Second hand smoke exposure: Yes Alcohol intake: never Lives independently: Yes Household members: children Marital status: Single service: No Current occupational status: unemployed History of recent travel: No Current gender identity: Female Special sofiya needs: No Pertinent Exam Findings alert, oriented x 3 and regular rate & rhythm Recommendations Surgery/Procedure today Coding Level of Care Code 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
[2021-10-28 09:42] VITALS: BP 112/96; PULSE 90; RESP 16; TEMP 36.3; O2SAT 100
[2021-10-28 10:01] VITALS: BP 127/101; PULSE 76; RESP 16; O2SAT 100
--- NOTE | 2021-10-28 10:28 | ANE.PACU2 ---
Inpatient post-anesthesia follow up: Airway intact: Yes Vital signs: Temperature 97.3 F Pulse Rate 76 Respiratory Rate 16 Blood Pressure 127/101 Pulse Oximetry 100 Oxygen Delivery Me thod Room Air Oxygen Flow Rate Fraction of Inspir ed Oxygen Hydration adequate: Yes Mental status: Baseline
== END 2021-10-28 10:40 | disposition home or self-care (01) ==
PROVIDERS: Anesthesiology; PCP Nurse Practitioner Family; Visit Provider Surgery
PROC: 0DJ08ZZ Inspection of Upper Intestinal Tract, Via Natural or Artificial Opening Endoscopic (ICD-10-PCS; CPT 43235; principal; 2021-10-28 09:00)
PROC: 0DJD8ZZ Inspection of Lower Intestinal Tract, Via Natural or Artificial Opening Endoscopic (ICD-10-PCS; CPT 45378; 2021-10-28 09:00)
DX: R11.0 Nausea (principal); D50.9 Iron deficiency anemia, unspecified; K64.8 Other hemorrhoids; K29.50 Unspecified chronic gastritis without bleeding; E66.01 Morbid (severe) obesity due to excess calories; Z68.43 Body mass index [BMI] 50.0-59.9, adult
CPT/HCPCS: 43239; 45378; 81025; 84703; 88305; J2704; J7030

== ENCOUNTER 2021-11-08 09:13 | Outpatient (CLI) | payer MEDICAID, SELFPAY ==
[2021-11-08] MEDS: acetaminophen 325 mg Tablet 650 MG PO (09:30)
[2021-11-08] MEDS: diphenhydrAMINE 50 mg/mL SDV 1mL 25 MG IVP (09:30)
== END 2021-11-08 09:14 | disposition home or self-care (01) ==
LOC: ONCMED 09:13
PROVIDERS: PCP Nurse Practitioner Family; Visit Provider Internal Medicine Medical Oncology
DX: D50.9 Iron deficiency anemia, unspecified (principal); N92.0 Excessive and frequent menstruation with regular cycle; Z79.899 Other long term (current) drug therapy
CPT/HCPCS: 96365; 96366; J1100; J1200; J1750; J7030

== ENCOUNTER 2021-12-12 15:10 | Outpatient (CLI) | payer MEDICAID, SELFPAY ==
[2021-12-12 16:58] LABS: Basophils % 0.3 %; Eosinophils # 0.1 10^3/uL (0.0-0.8); Eosinophils % 1.2 %; Hematocrit 41.1 % (37.0-47.0); Hemoglobin 12.5 g/dL (11.5-15.3); Lymphocytes # 3.3 10^3/uL (0.8-4.8); Lymphocytes % 35.6 %; Mean Corpuscular HGB Conc 30.4 g/dL (30.0-36.0); Mean Corpuscular Hemoglobin 23.7 pg (28.0-34.0); Mean Platelet Volume 9.5 fL (7.4-10.4); Monocytes # 0.5 10^3/uL (0.2-0.9); Monocytes % 5.8 %; Neutrophils # 5.28 10^3/uL (1.8-7.7); Neutrophils % 56.9 %; Nucleated Red Blood Cells % 0 %; Platelet Count 348 10^3/cmm (130-400); Red Blood Count 5.27 10^6/uL (4.1-5.3); Red Cell Distribution Width 21.7 % (12.1-15.1); White Blood Count 9.3 10^3/uL (4.0-10.0)
[2021-12-12 17:57] LABS: Ferritin 114 ng/mL (15-150); Iron 55 ug/dL (37-145); Percent Saturation 17.7 % (20-50); Total Iron Binding Capacity 310 mcg/dl; Unsaturated Iron Binding 255 ug/dL (112-347)
== END 2021-12-12 15:11 | disposition home or self-care (01) ==
LOC: ONCMED 15:14
PROVIDERS: PCP Nurse Practitioner Family; Visit Provider Internal Medicine Medical Oncology
DX: D50.9 Iron deficiency anemia, unspecified (principal)
CPT/HCPCS: 36415; 82728; 83540; 83550; 85025

== ENCOUNTER 2021-12-26 13:19 | Outpatient (CLI) | payer MEDICAID, SELFPAY ==
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
== END 2021-12-26 13:20 | disposition home or self-care (01) ==
PROVIDERS: PCP Nurse Practitioner Family; Visit Provider Internal Medicine Medical Oncology
DX: D50.9 Iron deficiency anemia, unspecified (principal); J45.909 Unspecified asthma, uncomplicated; F41.9 Anxiety disorder, unspecified; F41.0 Panic disorder [episodic paroxysmal anxiety]; F17.200 Nicotine dependence, unspecified, uncomplicated; Z79.899 Other long term (current) drug therapy
CPT/HCPCS: 99214

== ENCOUNTER → 2021-12-29 14:58 | Outpatient (BNVA) | payer MEDICAID, SELFPAY | PROVIDERS: PCP Nurse Practitioner Family; Visit Provider Nurse Practitioner Family | DX: R10.9 Unspecified abdominal pain (principal); R11.2 Nausea with vomiting, unspecified | CPT/HCPCS: 81000; 81003 ==

== ENCOUNTER 2022-03-06 00:55 | Emergency (ER) | payer MEDICAID, SELFPAY ==
[2022-03-06 01:09] VITALS: BP 137/92; PULSE 83; RESP 16; TEMP 36.4; O2SAT 100; BMI 42.0
[2022-03-06 01:59] LABS: Basophils % 0.3 %; Eosinophils # 0.2 10^3/uL (0.0-0.8); Eosinophils % 2.2 %; Hematocrit 39.8 % (37.0-47.0); Hemoglobin 12.7 g/dL (11.5-15.3); Lymphocytes # 3.7 10^3/uL (0.8-4.8); Mean Corpuscular HGB Conc 31.9 g/dL (30.0-36.0); Mean Corpuscular Hemoglobin 27.5 pg (28.0-34.0); Mean Corpuscular Volume 86.1 fl (81-99); Mean Platelet Volume 9.6 fL (7.4-10.4); Monocytes # 0.8 10^3/uL (0.2-0.9); Neutrophils # 5.29 10^3/uL (1.8-7.7); Neutrophils % 52.2 %; Nucleated Red Blood Cells % 0 %; Platelet Count 320 10^3/cmm (130-400); Red Blood Count 4.62 10^6/uL (4.1-5.3); Red Cell Distribution Width 14.2 % (12.1-15.1); White Blood Count 10.1 10^3/uL (4.0-10.0)
[2022-03-06 02:07] LABS: HCG Qualitative Urine. Negative (Negative)
[2022-03-06 02:19] LABS: Add Urine Microscopic? YES; Bilirubin Urine Neg (Negative); Blood Urine 2+ (Negative); Glucose Urine UA Norm (Normal); Ketones Urine Negative (Negative); Leukocyte Esterase Urine 1+ (Negative); Nitrate Urine Negative (Negative); Protein Urine Neg (Negative); Specific Gravity, Urine 1.025 (1.005-1.030); Urine Appearance Clear (CLEAR); Urine Color Yellow (Yellow); Urobilinogen Urine 4 mg/dL (Negative); pH Urine 5 (5-7)
[2022-03-06 02:21] LABS: Add Urine Culture? No; Bacteria Urine 1+ /hpf; RBC Urine 0-4 /hpf (0-2); Squamous Epithelial Cell Urine 15-25 /hpf (0-5)
[2022-03-06 02:22] LABS: Alanine Aminotransferase 26 U/L (0-33); Albumin Level 4.5 g/dL (3.5-5.2); Alkaline Phosphatase 62 IU/L (35-105); Anion Gap 12.7 (5-19); Aspartate Amino Transferase 22 U/L (0-32); Blood Urea Nitrogen 11 mg/dL (6-20); Calcium 8.8 mg/dL (8.5-10.5); Carbon Dioxide 25 mmol/L (22-29); Chloride 107 mmol/L (98-107); Globulin 3.5 g/dL (1.3-4.6); Glomerular Filtration Rate 85.4 mL/min (90-130); Glucose 88 mg/dL (65-115); Lipase 30 U/L (13-60); Osmolality Calculated 291 mOsm/kg (285-295); Potassium 3.7 mmol/L (3.5-5.1); Sodium 141 mmol/L (136-145); Total Bilirubin 0.3 mg/dL (0.15-1.2)
--- NOTE | 2022-03-06 02:34 | ED_ITS ---
HPI - Abdominal Pain General: Chief Complaint: Abdominal Pain Stated Complaint: ABD Pain Time Seen by Provider: 03/06/22 02:31 History of Present Illness: Ms. Metz is a 26-year-old lady with significant past medical history of dysfunctional uterine bleeding, abdominal pain, history of H. pylori presenting to the emergency department due to abdominal pain. Symptom onset was 2 to 3 days ago and subacute without known specific provoking event. She endorses right upper quadrant abdominal pain which is sharp and achy. This is associated with nausea but no vomiting. No change in bowel movements or urination. She has irregular periods and has been just spotting the past few months though this is not atypical for her. Overall course of symptoms has persisted. Intensity is moderate to severe. She does have a history of cholecystectomy and reports that this feels different. No other specific changes in health, exacerbating, or alleviating factors identified. Onset (ago): day(s) Location: RUQ Severity: moderate Quality: sharp Related Data: Date of Last Menstrual Period: 03/22/21 Review of Systems General: Reports: 10 or more systems reviewed and unremarkable except in HPI and below PFSH ED PFSH: Medical History Asthma Has had asthma since she was a child and denies any history of intubations or hospitalizations Helicobacter pylori gastritis Surgical History H/O esophagogastroduodenoscopy (10/28/21) History of dilatation and curettage 01/20/2021----> hysteroscopy D&C performed by Dr. Murphy at [facility] [place] for abnormal uterine bleeding-pathology showed secretory endometrium without malignancy. Hysteroscopy was complicated by the fact that patient was bleeding with just thick fluffy endometrium identified without obvious lesions Hx of section x 3 08/10/2013-malpresentation of twin gestation with a leg prolapsed-emergency by Dr. Kali Gates at [facility] [place] 07/19/2014---- repeat for twins performed by Dr. Gates at [facility] [place]. 04/06/2016-repeat with the drainage of left ovarian cyst and bilateral tubal ligation performed by Dr. Cannon at [facility] [place] Hx of tubal ligation 04/06/2016-bilateral tubal ligation performed at time of by Dr. Alpa uriarte Status post colonoscopy (10/28/21) Status post laparoscopic cholecystectomy Family History Mother Diabetes Hypertension Family/Other Cancer Breast cancer maternal cousin Grandmother Diabetes maternal Denies family history of Colon cancer Ovarian cancer Hyperlipidemia Uterine cancer Thyroid condition Stroke Social History Smoking and tobacco status: never smoked Second hand smoke exposure: No Alcohol intake: never Adopted: No Lives independently: Yes Household members: children Marital status: Single service: No Current occupational status: unemployed History of recent travel: No Current gender identity: Female Special sofiya needs: No Agree to transfusion: Yes Female Reproductive History: Date of last menstrual period: 03/22/21 Physical Exam Const: COMMON NORMALS: alert GENERAL APPEARANCE: cooperative and well developed HENMT: COMMON NORMALS: normocephalic and atraumatic HEAD & SCALP: normocephalic and atraumatic Eye: COMMON NORMALS: conjunctivae normal CONJUNCTIVA: Yes conjunctivae normal SCLERA: sclerae normal Neck/C-Spine: COMMON NORMALS: supple GENERAL: Yes trachea midline Resp: COMMON NORMALS: normal respiratory effort and clear to auscultation bilaterally EFFORT & INSPECTION: Yes able to speak in complete sentences AUSCULTATION: clear to auscultation bilaterally Cardio: COMMON NORMALS: regular rate and regular rhythm RATE: regular rate RHYTHM: regular rhythm GI: COMMON NORMALS: Soft to palpation PALPATION: Yes Soft to palpation, Yes Tenderness to palpation present (GI) and No Guarding due to palpation present (GI) PERCUSSION: normal to percussion Extremity: GENERAL: Yes normal exam except as noted and No edema Neuro: COMMON NORMALS: moves all extremities SENSORIUM/ORIENTATION: Yes alert and No Orientation impaired Psych: COMMON NORMALS: mental status grossly normal and Normal thought process present THOUGHT PROCESS: Normal thought process present Course ED course: - Patient was seen and evaluated by me at bedside - Patient placed on cardiac monitors, IV access obtained - Initial evaluation notable for as above - Labs and xrays personally interpreted by me -Analgesia given - Labs notable for minimal leukocytosis, no other significant abnormality. Urinalysis with squamous epithelial contamination. - Imaging notable for negative chest x-ray. CT without acute abnormality to explain symptoms. - Upon serial reexamination after treatment the patient was similar - Based on patient history, evaluation, and testing as interpreted the most likely cause of the patient's condition is unspecified abdominal pain - The results of ED evaluation were discussed with the patient including prescriptions and/or symptomatic cares (if applicable) including appropriate and responsible use, followup plan, and return precautions. The patient verbalized understanding and felt safe for discharge. - Patient discharged in satisfactory condition. Note: Click bubbles or prepopulated corona in note writing are used for assistance with data collection and billing and are inherently more limited than narrative and other text portions of this note. Please use narrative for additional clinical history and defer to narrative/free test for any case of contradictory information. If information appears in only free text or click bubble it should be considered present or absent as reported. Please contact note automotive service writer for clarifications of clinical information or contradictory information. MDM is a brief summary, contradictory or erroneous seeming information should be clarified and full note should be reviewed. Vital Signs: Vital signs: Vital Signs Temperature 97.6 F 03/06/22 01:09 Pulse Rate 92 03/06/22 05:13 Respiratory Rate 18 03/06/22 05:13 Blood Pressure 120/75 03/06/22 05:13 Pulse Oximetry 96 03/06/22 05:13 MDM - Abdominal Pain Medical Decision Making 26-year-old female presenting to the emergency department due to abdominal pain. Laboratory studies and CT imaging negative for acute pathology to explain symptoms. Satisfactory for outpatient management. Medical Records I reviewed the patient's medical records. Lab Data I reviewed the patient's lab results. : 03/06/22 01:46 03/06/22 01:46 Labs/Radiology: Radiology Impressions Abdomen/Pelvis CT 03/06/22 02:59 IMPRESSION: 1. No acute abdominopelvic abnormality identified. 2. The gallbladder is surgically absent. COMMENTS: Evaluation of solid organs and vascular structures is limited as no IV contrast was administered. Chest X-Ray 03/06/22 02:59 IMPRESSION: No acute cardiopulmonary abnormality. Laboratory Results WBC 10.1 10^3/uL (4.0-10.0) H 03/06/22 01:46 RBC 4.62 10^6/uL (4.1-5.3) 03/06/22 01:46 Hgb 12.7 g/dL (11.5-15.3) 03/06/22 01:46 Hct 39.8 % (37.0-47.0) 03/06/22 01:46 MCV 86.1 fl (81-99) 03/06/22 01:46 MCH 27.5 pg (28.0-34.0) L 03/06/22 01:46 MCHC 31.9 g/dL (30.0-36.0) 03/06/22 01:46 RDW 14.2 % (12.1-15.1) 03/06/22 01:46 Plt Count 320 10^3/cmm (130-400) 03/06/22 01:46 MPV 9.6 fL (7.4-10.4) 03/06/22 01:46 Neut % (Auto) 52.2 % 03/06/22 01:46 Lymph % (Auto) 37.0 % 03/06/22 01:46 [place] % (Auto) 8.0 % 03/06/22 01:46 Eos % (Auto) 2.2 % 03/06/22 01:46 Baso % (Auto) 0.3 % 03/06/22 01:46 Neut # (Auto) 5.29 10^3/uL (1.8-7.7) 03/06/22 01:46 Lymph # (Auto) 3.7 10^3/uL (0.8-4.8) 03/06/22 01:46 [place] # (Auto) 0.8 10^3/uL (0.2-0.9) 03/06/22 01:46 Eos # (Auto) 0.2 10^3/uL (0.0-0.8) 03/06/22 01:46 Baso # (Auto) 0.0 10^3/uL (0.0-0.1) 03/06/22 01:46 Nucleated RBC % (auto) 0 % 03/06/22 01:46 Nucleated RBCs # 0.0 /100WBC 03/06/22 01:46 Sodium 141 mmol/L (136-145) 03/06/22 01:46 Potassium 3.7 mmol/L (3.5-5.1) 03/06/22 01:46 Chloride 107 mmol/L (98-107) 03/06/22 01:46 Carbon Dioxide 25 mmol/L (22-29) 03/06/22 01:46 Anion Gap 12.7 (5-19) 03/06/22 01:46 BUN 11 mg/dL (6-20) 03/06/22 01:46 Creatinine 0.8 mg/dL (0.5-0.9) 03/06/22 01:46 GFR Calculation 85.4 mL/min (90-130) L 03/06/22 01:46 Glucose 88 mg/dL (65-115) 03/06/22 01:46 Calculated Osmolality 291 mOsm/kg (285-295) 03/06/22 01:46 Calcium 8.8 mg/dL (8.5-10.5) 03/06/22 01:46 Total Bilirubin 0.3 mg/dL (0.15-1.2) 03/06/22 01:46 AST 22 U/L (0-32) 03/06/22 01:46 ALT 26 U/L (0-33) 03/06/22 01:46 Alkaline Phosphatase 62 IU/L (35-105) 03/06/22 01:46 Total Protein 8.0 g/dL (6.6-8.7) 03/06/22 01:46 Albumin 4.5 g/dL (3.5-5.2) 03/06/22 01:46 Globulin 3.5 g/dL (1.3-4.6) 03/06/22 01:46 Lipase 30 U/L (13-60) 03/06/22 01:46 HCG, Qual Negative (Negative) 03/06/22 01:54 Urine Color Yellow (Yellow) 03/06/22 01:54 Urine Appearance Clear (CLEAR) 03/06/22 01:54 Urine pH 5 (5-7) 03/06/22 01:54 Ur Specific [place] 1.025 (1.005-1.030) 03/06/22 01:54 Urine Protein Neg (Negative) 03/06/22 01:54 Urine Glucose (UA) Norm (Normal) 03/06/22 01:54 Urine Ketones Negative (Negative) 03/06/22 01:54 Urine Blood 2+ (Negative) H 03/06/22 01:54 Urine Nitrate Negative (Negative) 03/06/22 01:54 Urine Bilirubin Neg (Negative) 03/06/22 01:54 Urine Urobilinogen 4 mg/dL (Negative) H 03/06/22 01:54 Ur Leukocyte Esterase 1+ (Negative) H 03/06/22 01:54 Urine RBC 0-4 /hpf (0-2) H 03/06/22 01:54 Urine WBC 5-10 /hpf (0-5) H 03/06/22 01:54 Ur Squamous Epith Cells 15-25 /hpf (0-5) H 03/06/22 01:54 Amorphous Sediment Not Reportable 03/06/22 01:54 Urine Bacteria 1+ /hpf (NONE) H 03/06/22 01:54 Discharge Plan Discharge Patient Disposition: Home Clinical Impression: Abdominal pain, Nausea Condition: Stable Prescriptions: New Protonix 40 mg tablet,delayed release (DR/EC) 40 mg PO BID 14 Days Qty: 28 0RF ondansetron 4 mg tablet,disintegrating 4 mg PO Q8H PRN (Reason: nausea and vomiting) Qty: 15 0RF No Action cyclobenzaprine 10 mg tablet 10 mg PO TID PRN (Reason: muscle spasm) Qty: 20 0RF magnesium citrate Solution 296 ml PO BID PRN (Reason: constipation) 1 Days Qty: 592 0RF Rx Instructions: Take one bottle at 12 pm and one at 8 pm day before colonoscopy. bisacodyl [Dulcolax (bisacodyl)] 5 mg tablet,delayed release (DR/EC) 20 mg PO ONCE 1 Days Qty: 4 0RF Rx Instructions: Take all 4 tablets at 2pm day before colonoscopy. fluticasone propionate [Flonase Allergy Relief] 50 mcg/actuation spray,suspension 2 spray intranasal DAILY Qty: 16 2RF Rx Instructions: administer into each nostril buspirone 10 mg tablet 10 mg PO BID Qty: 60 0RF sertraline 100 mg tablet 100 mg PO DAILY Qty: 30 0RF Junel FE 1.5/30 (28) 1.5 mg-30 mcg (21)/75 mg (7) tablet 1 tab PO DAILY@0800 Qty: 168 0RF albuterol sulfate [ProAir HFA] 90 mcg/actuation HFA aerosol inhaler 1 puff inhalation QID PRN (Reason: shortness of breath or wheezing) Qty: 8.5 6RF budesonide-formoterol [Symbicort] 160-4.5 mcg/actuation HFA aerosol inhaler 2 puff inhalation BID Qty: 10.2 6RF PNV no.175-iron fum-folic acid 29-1 mg tablet 1 tab PO DAILY 30 Days Qty: 30 6RF pantoprazole 40 mg tablet,delayed release (DR/EC) 40 mg PO DAILY Qty: 30 2RF loperamide [Imodium A-D] 2 mg capsule 2 mg PO QID PRN (Reason: loose stool) Qty: 30 4RF ondansetron HCl [Zofran] 4 mg tablet 4 mg PO Q6H PRN (Reason: nausea and vomiting) Qty: 90 0RF promethazine 25 mg tablet 25 mg PO QID PRN (Reason: nausea and vomiting) Qty: 20 0RF sulfamethoxazole-trimethoprim [Bactrim DS] 800-160 mg tablet 1 tab PO BID 7 Days Qty: 14 0RF sumatriptan succinate [Imitrex] 100 mg tablet See Rx Instructions PO .COMPLEX Qty: 10 0RF Rx Instructions: take 1 tab at onset of headache; if no relief, may repeat 1 tab after at least 2 hrs; max = 2 tabs/24 hrs PO diclofenac sodium 75 mg tablet,delayed release (DR/EC) 75 mg PO BID PRN (Reason: pain) Qty: 60 0RF Discharge Orders: Discharge ED (Routine); Ordered 03/06/22 Ordered By: Terry Mena Referrals: Karyna Shell, LICENSED STAFF MFT [Primary Care Provider] - Discharge Diet: Advance as tolerated and Clear Liquid Discharge Activity: Increase activity as tolerated Patient Instructions: Abdominal Pain (ED), Opioid Safety Activity Restrictions/Additional Instructions: Thank you for visiting the emergency department. You were seen evaluated for abdominal pain. The exact cause of your symptoms is unclear as no certain cause was identified on CT scan. For the next 24 hours please drink clear liquids and then advance diet as tolerated. Please follow-up with your primary care provider. Return to the emergency department for uncontrolled symptoms or anything else that you are concerned about and feel needs emergency department evaluation. Coding Level of Care Code ED Molding Machine Operator Helper for Marlin Barger
--- NOTE | 2022-03-06 02:59 | CTR_ITS ---
PROCEDURE INFORMATION: Exam: CT Abdomen And Pelvis Without Contrast Exam date and time: 03/06/2022 3:33 AM Age: 26 years old Clinical indication: Abdominal pain; Localized; Right upper quadrant (ruq); Prior surgery; Surgery date: 6+ months; Surgery type: Gb; Additional info: Ruq abd pain TECHNIQUE: Imaging protocol: Computed tomography of the abdomen and pelvis without contrast. Radiation optimization: All CT scans at this facility use at least one of these dose optimization techniques: automated exposure control; mA and/or kV adjustment per patient size (includes targeted exams where dose is matched to clinical indication); or iterative reconstruction. COMPARISON: CT abdomen pelvis w con* [id number] 01/11/2021 10:05 AM RADIATION DOSE METRICS: Total DLP (mGy-cm): 1422.49 FINDINGS: Lungs: The visualized lung bases demonstrate no focal airspace opacification or pleural effusion. Heart: The visualized heart is within normal limits for size. There is no evidence of pericardial abnormality. Liver: The liver is normal in size and contour. Gallbladder and bile ducts: The gallbladder is surgically absent. Pancreas: The pancreas appears normal. Spleen: The spleen appears normal. Adrenal glands: The adrenals appear normal. Kidneys and ureters: The kidneys empty into non-dilated ureters. No renal or ureteral stones are identified. No perinephric or periureteral fat tissue stranding is identified. Stomach and bowel: The stomach is appropriately distended and without wall abnormalities. The small bowel loops are not abnormally dilated. The large bowel loops are not abnormally dilated. Appendix: The appendix is not readily identified. No signs of acute appendicitis. Intraperitoneal space: No ascites or significant fluid collection. Vasculature: The aorta is nonaneurysmal. The IVC appears normal. Lymph nodes: There are no enlarged lymph nodes. Urinary bladder: The urinary bladder is not well distended, therefore not well evaluated. Reproductive: Unremarkable as visualized. Bones/joints: Review of the bone windows demonstrates no significant abnormality. Soft tissues: Unremarkable. CT/CT abdomen pelvis wo con [id number] IMPRESSION: 1. No acute abdominopelvic abnormality identified. 2. The gallbladder is surgically absent. COMMENTS: Evaluation of solid organs and vascular structures is limited as no IV contrast was administered.
--- NOTE | 2022-03-06 02:59 | XRR_ITS ---
PROCEDURE INFORMATION: Exam: XR Chest Exam date and time: 03/06/2022 3:26 AM Age: 26 years old Clinical indication: Dyspnea; Additional info: SOB TECHNIQUE: Imaging protocol: XR of the chest. Views: 1 view. COMPARISON: CR XR chest 1V portable [id number] 04/21/2021 1:18 AM FINDINGS: Lungs: The lung parenchyma is clear. Pleural spaces: No pneumothorax. No pleural effusion. Heart/Mediastinum: The cardiomediastinal silhouette is within normal limits. Bones/joints: Unremarkable. XR/XR chest 1V portable [id number] IMPRESSION: No acute cardiopulmonary abnormality.
[2022-03-06 04:12] VITALS: RESP 16
[2022-03-06] MEDS: morphine 4 mg/mL SDV 1 mL IVP (04:12)
[2022-03-06] MEDS: dicyclomine 10 mg Capsule PO (04:56)
[2022-03-06] MEDS: lidocaine 2% viscous 15 ML, aluminum-mag hydrox-simethicon 30 ML, sucralfate oral liq 1 GM PO (04:56)
[2022-03-06] MEDS: ketorolac 30 mg/mL INJ 15 MG IVP (04:57)
[2022-03-06 05:13] VITALS: BP 120/75; PULSE 92; RESP 18; O2SAT 96
== END 2022-03-06 05:15 | disposition home or self-care (01) ==
PROVIDERS: Emergency Provider Emergency Medicine; PCP Nurse Practitioner Family
DX: R10.11 Right upper quadrant pain (principal); R11.0 Nausea
CPT/HCPCS: 71045; 74176; 80053; 81001; 81025; 83690; 85025; 96374; 96375; 99284; J1885; J2270

== ENCOUNTER 2022-04-13 14:00 | Oncology outpatient (recurring) (ONCR) | payer MEDICAID, SELFPAY ==
[2022-04-03 12:31] LABS: Basophils % 0.2 %; Eosinophils # 0.1 10^3/uL (0.0-0.8); Eosinophils % 1.5 %; Hematocrit 37.8 % (37.0-47.0); Hemoglobin 12.9 g/dL (11.5-15.3); Lymphocytes # 2.8 10^3/uL (0.8-4.8); Lymphocytes % 31.7 %; Mean Corpuscular HGB Conc 34.1 g/dL (30.0-36.0); Mean Corpuscular Hemoglobin 27.6 pg (28.0-34.0); Mean Corpuscular Volume 80.9 fl (81-99); Mean Platelet Volume 10.3 fL (7.4-10.4); Monocytes # 0.5 10^3/uL (0.2-0.9); Monocytes % 5.2 %; Neutrophils % 61.3 %; Nucleated Red Blood Cells % 0 %; Platelet Count 363 10^3/cmm (130-400); Red Blood Count 4.67 10^6/uL (4.1-5.3); Red Cell Distribution Width 13.4 % (12.1-15.1); White Blood Count 8.8 10^3/uL (4.0-10.0)
[2022-04-03 12:47] LABS: Ferritin 54 ng/mL (15-150); Iron 62 ug/dL (37-145); Percent Saturation 19.2 % (20-50); Total Iron Binding Capacity 322 mcg/dl; Unsaturated Iron Binding 260 ug/dL (112-347)
[2022-04-03 16:23] LABS: Alanine Aminotransferase 47 U/L (0-33); Albumin Level 4.5 g/dL (3.5-5.2); Alkaline Phosphatase 58 IU/L (35-105); Anion Gap 18.7 (5-19); Aspartate Amino Transferase 37 U/L (0-32); Blood Urea Nitrogen 9 mg/dL (6-20); Calcium 9.3 mg/dL (8.5-10.5); Carbon Dioxide 20 mmol/L (22-29); Chloride 103 mmol/L (98-107); Globulin 3.4 g/dL (1.3-4.6); Glomerular Filtration Rate 146.9 mL/min (90-130); Glucose 99 mg/dL (65-115); Osmolality Calculated 285 mOsm/kg (285-295); Potassium 3.7 mmol/L (3.5-5.1); Sodium 138 mmol/L (136-145); Thyroid Stimulating Hormone 1.56 uIU/mL (0.27-4.20); Total Bilirubin 0.5 mg/dL (0.15-1.2); Total Protein 7.9 g/dL (6.6-8.7)
--- NOTE | 2022-04-13 14:00 | CT_ITS ---
WS: [id number] CT CHEST ANGIOGRAPHY WITH REFORMATS HISTORY: chest pain and hemoptysis TECHNIQUE: Contiguous axial images are obtained through the chest during arterial injection of intrav enous contrast. Images are reconstructed to evaluate the pulmonary arteries. MIP imaging also reviewe d. All CT scans at [facility] use at least one of these dose optimization techniques: automat ed exposure control; mA and/or kV adjustment per patient size (includes targeted exams where dose is matched to clinical indication); or iterative reconstruction. CONTRAST: Omnipaque 350; 95 mL IV. DLP: 512.00 mGy.cm COMPARISON: None available. Adequate opacification of the pulmonary arteries. No filling defects are identified. Pulmonary artery size is normal. No RIGHT heart strain. Normal size thoracic aorta. Heart size is normal. No pericard ial or pleural effusions. No pneumonia, mass or nodule. Lungs are clear. No mediastinal or hilar alex opathy. Mild residual thalamic tissue in the anterior mediastinum. Liver is mildly enlarged with low attenuation from hepatic steatosis. Only a small portion of the cely er is included. The spleen is enlarged measuring approximately 15 cm. No osseous abnormality. CT/CT angio chest PE protcl [id number] IMPRESSION: 1. No pulmonary embolism. 2. No pneumonia. 3. Incompletely visualized liver and spleen but there does appear to be mild hepatosplenomegaly.
[2022-04-13] MEDS: iohexol 350 mg/mL 100 mL Btl IV (14:50)
== END 2022-04-13 23:59 | disposition home or self-care (01) ==
LOC: RAD 04-14 00:02
PROVIDERS: Nurse Practitioner Family; PCP Nurse Practitioner Family; Visit Provider Internal Medicine Medical Oncology
DX: R07.9 Chest pain, unspecified (principal); R04.2 Hemoptysis; R16.2 Hepatomegaly with splenomegaly, not elsewhere classified
CPT/HCPCS: 71275; 80053; 82728; 83540; 83550; 84443; 85025; 99214; Q9967

== ENCOUNTER 2022-07-26 12:11 | Outpatient (CLI) | payer MEDICAID, SELFPAY ==
--- NOTE | 2022-07-26 12:25 | XR_ITS ---
WS: [id number] CHEST 2 VIEWS HISTORY: neck pain, fall, numbness in both arms COMPARISON: None available. Lungs: Clear with no abnormality. No pleural effusion or pneumothorax. Poor inspiratory effort. Cardiac size: Normal. Mediastinum/Aorta: Normal mediastinum. Bones: Normal. XR/XR chest 2V* [id number] IMPRESSION: Unremarkable chest.
--- NOTE | 2022-07-26 12:25 | XR_ITS ---
WS: [id number] CERVICAL SPINE 3 VIEWS HISTORY: neck pain, fall, numbness in both arms COMPARISON: None available. The lateral radiograph is significantly limited by rotation and motion. No true lateral images submit santa. The lateral masses of C1 and C2 are aligned. The odontoid is not seen in its entirety. No soft t issue abnormality. Soft tissues are normal. XR/XR cervical spine 3V* [id number] IMPRESSION: Extremely limited evaluation of the cervical spine due to poor positioning. If cervical pain continues additional radiographic imaging is necessary to exclude fracture.
== END 2022-07-26 12:12 | disposition home or self-care (01) ==
LOC: RAD 12:17
PROVIDERS: PCP Nurse Practitioner Family; Visit Provider Nurse Practitioner Family
DX: R20.2 Paresthesia of skin (principal); M54.2 Cervicalgia; R07.89 Other chest pain; W19.XXXA Unspecified fall, initial encounter
CPT/HCPCS: 71046; 72040; 80053; 80061; 82607; 82746; 83036; 83550; 84443

== ENCOUNTER → 2022-08-30 12:18 | Outpatient (BNVA) | payer MEDICAID, SELFPAY | PROVIDERS: PCP Nurse Practitioner Family; Visit Provider Nurse Practitioner Family | DX: J02.9 Acute pharyngitis, unspecified (principal); F32.A Depression, unspecified; F41.9 Anxiety disorder, unspecified; F41.0 Panic disorder [episodic paroxysmal anxiety]; E66.01 Morbid (severe) obesity due to excess calories; K21.9 Gastro-esophageal reflux disease without esophagitis; R53.83 Other fatigue; R53.1 Weakness | CPT/HCPCS: 80053; 86140; 86664; 86665 ==

== ENCOUNTER → 2022-09-18 12:11 | Outpatient (BNVA) | payer MEDICAID, SELFPAY | PROVIDERS: PCP Nurse Practitioner Family; Visit Provider Nurse Practitioner Family | DX: J45.909 Unspecified asthma, uncomplicated (principal); J06.9 Acute upper respiratory infection, unspecified; R05.9 Cough, unspecified; D50.0 Iron deficiency anemia secondary to blood loss (chronic) | CPT/HCPCS: 80053; 83550 ==

== ENCOUNTER 2022-10-12 09:08 | Oncology outpatient (recurring) (ONCR) | payer MEDICAID, SELFPAY ==
[2022-09-28 08:50] VITALS: BP 134/78; PULSE 74; RESP 18; TEMP 36.6; O2SAT 98
[2022-09-28] MEDS: sodium chloride 0.9% 250 ML 75 ML IV (08:56)
[2022-09-28] MEDS: diphenhydrAMINE 50 mg/mL SDV 1mL 25 MG IVP (08:57)
[2022-09-28] MEDS: acetaminophen 325 mg Tablet 650 MG PO (08:57)
[2022-09-28] MEDS: iron sucrose 200 MG in sodium chloride 0.9% (100 ml) 100 ML 220 MG IV (09:06)
[2022-09-28 09:45] VITALS: BP 124/74; PULSE 64; RESP 18; TEMP 36.1
[2022-10-02 09:23] VITALS: BP 140/87; PULSE 71; RESP 18; TEMP 36.7; O2SAT 98
[2022-10-02] MEDS: sodium chloride 0.9% 250 ML 75 ML IV (09:41)
[2022-10-02] MEDS: ondansetron 2 mg/ML SDV 2 mL 8 MG IVP (09:57)
[2022-10-02] MEDS: acetaminophen 325 mg Tablet 650 MG PO (09:57)
[2022-10-02] MEDS: diphenhydrAMINE 50 mg/mL SDV 1mL 25 MG IVP (09:58)
[2022-10-02] MEDS: iron sucrose 200 MG in sodium chloride 0.9% (100 ml) 100 ML 220 MG IV (10:03)
[2022-10-02 10:44] VITALS: BP 139/88; PULSE 69; RESP 18; TEMP 36.6
[2022-10-04] MEDS: sodium chloride 0.9% 250 ML 100 ML IV (10:04)
[2022-10-04] MEDS: acetaminophen 325 mg Tablet 650 MG PO (10:07)
[2022-10-04] MEDS: diphenhydrAMINE 50 mg/mL SDV 1mL 25 MG IVP (10:08)
[2022-10-04] MEDS: iron sucrose 200 MG in sodium chloride 0.9% (100 ml) 100 ML 220 MG IV (10:15)
[2022-10-10] MEDS: sodium chloride 0.9% 250 ML 75 ML IV (10:05)
[2022-10-10] MEDS: diphenhydrAMINE 50 mg/mL SDV 1mL 25 MG IVP (10:05)
[2022-10-10] MEDS: acetaminophen 325 mg Tablet 650 MG PO (10:05)
[2022-10-10] MEDS: iron sucrose 200 MG in sodium chloride 0.9% (100 ml) 100 ML 220 MG IV (10:06)
[2022-10-10 11:00] VITALS: BP 112/84; PULSE 77; RESP 18; TEMP 36.6; O2SAT 98
[2022-10-12] MEDS: sodium chloride 0.9% 250 ML 100 ML IV (09:35)
[2022-10-12] MEDS: diphenhydrAMINE 50 mg/mL SDV 1mL 25 MG IVP (09:35)
[2022-10-12] MEDS: acetaminophen 325 mg Tablet 650 MG PO (09:37)
[2022-10-12] MEDS: iron sucrose 200 MG in sodium chloride 0.9% (100 ml) 100 ML 220 MG IV (09:42)
== END 2022-10-14 23:59 | disposition home or self-care (01) ==
PROVIDERS: PCP Nurse Practitioner Family; Visit Provider Internal Medicine Medical Oncology
DX: D50.0 Iron deficiency anemia secondary to blood loss (chronic); Z79.899 Other long term (current) drug therapy
CPT/HCPCS: 96365; 96375; J1200; J1756; J2405; J7050

== ENCOUNTER → 2022-10-19 14:53 | Outpatient (BNVA) | payer MEDICAID, SELFPAY | PROVIDERS: PCP Nurse Practitioner Family; Visit Provider Nurse Practitioner Family | DX: D50.0 Iron deficiency anemia secondary to blood loss (chronic) (principal); N93.9 Abnormal uterine and vaginal bleeding, unspecified | CPT/HCPCS: 80053; 85025 ==

== ENCOUNTER → 2022-11-21 14:10 | Outpatient (BNVA) | payer MEDICAID, SELFPAY | PROVIDERS: PCP Nurse Practitioner Family; Visit Provider Obstetrics & Gynecology | DX: R03.0 Elevated blood-pressure reading, without diagnosis of hypertension (principal); R53.83 Other fatigue | CPT/HCPCS: 83001; 84146; 84443; 84702; 85025 ==

== ENCOUNTER → 2022-12-01 11:05 | Outpatient (BNVA) | payer MEDICAID, SELFPAY | PROVIDERS: PCP Nurse Practitioner Family; Visit Provider Obstetrics & Gynecology | DX: N83.201 Unspecified ovarian cyst, right side (principal) | CPT/HCPCS: 76830 ==

== ENCOUNTER → 2022-12-19 12:08 | Outpatient (BNVA) | payer MEDICAID, SELFPAY | PROVIDERS: PCP Nurse Practitioner Family; Visit Provider Obstetrics & Gynecology | DX: N92.0 Excessive and frequent menstruation with regular cycle (principal); N83.201 Unspecified ovarian cyst, right side | CPT/HCPCS: 85025 ==

== ENCOUNTER → 2023-01-09 11:21 | Outpatient (BNVA) | payer MEDICAID, SELFPAY | PROVIDERS: Visit Provider Nurse Practitioner Family | DX: J02.9 Acute pharyngitis, unspecified (principal); D50.0 Iron deficiency anemia secondary to blood loss (chronic); E66.01 Morbid (severe) obesity due to excess calories; M54.42 Lumbago with sciatica, left side; M54.41 Lumbago with sciatica, right side; D64.9 Anemia, unspecified | CPT/HCPCS: 82728; 83550; 87071; 87880 ==

== ENCOUNTER → 2023-01-22 06:00 | Day surgery (SDC) | payer MEDICAID, SELFPAY ==
[2023-01-22 11:44] LABS: Basophils % 0.3 %; Eosinophils # 0.2 10^3/uL (0.0-0.8); Eosinophils % 2.1 %; Hematocrit 35.9 % (37.0-47.0); Hemoglobin 11.1 g/dL (11.5-15.3); Mean Corpuscular HGB Conc 30.9 g/dL (30.0-36.0); Mean Corpuscular Hemoglobin 26.5 pg (28.0-34.0); Mean Corpuscular Volume 85.7 fl (81-99); Mean Platelet Volume 9.8 fL (7.4-10.4); Monocytes # 0.6 10^3/uL (0.2-0.9); Monocytes % 6.2 %; Neutrophils # 5.53 10^3/uL (1.8-7.7); Neutrophils % 59.2 %; Nucleated Red Blood Cells % 0 %; Platelet Count 428 10^3/cmm (130-400); Red Blood Count 4.19 10^6/uL (4.1-5.3); Red Cell Distribution Width 13.2 % (12.1-15.1); White Blood Count 9.4 10^3/uL (4.0-10.0)
--- NOTE | 2023-01-22 11:50 | ECG_ITS ---
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 Measurements Intervals [place] Rate: 67 P: 3 [place]: 138 QRS: 23 QRSD: 89 T: 23 QT: 381 QTc: 404 Interpretive Statements SINUS RHYTHM WITH SINUS ARRHYTHMIA POSSIBLE ANTERIOR MYOCARDIAL INFARCTION , PROBABLY OLD [30 ms Q WAVE IN V3/V4, OR R < 0.2 mV IN V4] No previous ECG available for comparison Electronically Signed On 01-22-2023 23:48:18 CDT by Yogesh Chen M.D. [id number]
[2023-01-22 11:55] VITALS: BMI 60.7
[2023-01-22 12:03] LABS: Alanine Aminotransferase 18 U/L (0-33); Albumin Level 4.3 g/dL (3.5-5.2); Alkaline Phosphatase 65 U/L (35-105); Aspartate Amino Transferase 14 U/L (0-32); Blood Urea Nitrogen 9 mg/dL (6-20); Carbon Dioxide 26 mmol/L (22-29); Chloride 98 mmol/L (98-107); Globulin 2.8 g/dL (1.3-4.6); Glomerular Filtration Rate 145.9 mL/min (90-130); Glucose 87 mg/dL (65-115); Osmolality Calculated 272 mOsm/kg (285-295); Sodium 132 mmol/L (136-145); Total Bilirubin 0.2 mg/dL (0.15-1.2); Total Protein 7.1 g/dL (6.6-8.7)
--- NOTE | 2023-01-22 12:30 | P.ANESASSM_ITS ---
Pre-Anesthetic Assessment Height/Weight: Height 1.57 m Weight 150.593 kg Preop Diagnosis: upper gi symptoms Operation Date: 01/24/23 09:15 Proposed Procedures p Hysteroscopy, dilation and curettage with Myosure [id number],N92.1(Not Applicable) - Hipolito Mancilla MD s Dilation And Curettage (D&C)(Not Applicable) - Hipolito Mancilla MD Familial anesthetic complications: None Social Tobacco and No tobacco vapes Exam alert, oriented x 3, clear to auscultation bilaterally and regular rate & rhythm Airway Mallampati: Class II Dentition: full Pulmonary Asthma CV/HEM None reported Patient has been having chest pains for the past two months and they are getting increasingly worse. She describes them as pressure over her sternum but when sometimes its stabbing pain when its really severe. It lasts 10 - 15 minutes and is exacerbated by doing chores or being stressed out. Sitting down helps relieve the pain. Elements of the chest pain are atypical. Does states pressing on chest causes pain and presumed diagnosis had been costochondritis. Currently states she is having chest pains at the moment. GI Gastroesophageal Reflux Disease Metabolic Morbid Obesity Anesthetic Plan ASA status: 3 Anesthesia: General Risk of > 500 ml blood loss (7ml/kg in children): No Medications/Allergies Home Medications Medication Instructions Recorded Confirmed Last Taken Type bupropion HCl 150 mg tablet,12 hr 150 mg PO BID 30 days #60 tabs 07/26/22 01/22/23 Unknown Rx sustained-release (Wellbutrin SR) buspirone 10 mg tablet 10 mg PO TID 30 days #90 tabs 07/26/22 01/22/23 01/22/23 Rx albuterol sulfate 90 mcg/actuation 1 puff inhalation QID PRN 09/18/22 01/22/23 01/21/23 Rx aerosol inhaler (ProAir HFA) shortness of breath or wheezing #8.5 grams budesonide-formoterol HFA 160 2 puff inhalation BID #10.2 grams 09/18/22 01/22/23 01/21/23 Rx mcg-4.5 mcg/actuation aerosol inhaler (Symbicort) diclofenac sodium 1 % topical gel 4 g topical QID #100 grams 10/11/22 01/22/23 01/22/23 Rx (Voltaren Arthritis Pain) amoxicillin 875 mg tablet 875 mg PO BID 10 days #20 tabs 01/09/23 01/22/23 01/21/23 Rx gabapentin 300 mg capsule 300 mg PO BID 30 days #60 caps 01/09/23 01/22/23 01/22/23 Rx ibuprofen 800 mg tablet 800 mg PO TID PRN Pain 01/22/23 01/22/23 01/22/23 History pantoprazole 40 mg tablet,delayed 40 mg PO DAILY 01/22/23 01/22/23 01/22/23 History release vitamin with calcium 1 tab PO DAILY 01/22/23 01/22/23 01/22/23 History no.72-iron 27 mg-folic acid 1 mg tablet (WesTab Plus) semaglutide 0.25 mg or 0.5 mg (2 0.5 mg SUBCUT .WKLY 01/22/23 01/22/23 Unknown History mg/1.5 mL) subcutaneous pen injector (Ozempic) sumatriptan succinate 100 mg See Rx Instructions PO .COMPLEX 01/22/23 01/22/23 Unknown History tablet (Imitrex) PRN Headache Allergies Allergy/AdvReac Type Severity Reaction Status Date / Time No Known Allergies Allergy Verified 01/22/23 08:40 [facility] Anesthesia Medical History Anxiety and depression Asthma Has had asthma since she was a child and denies any history of intubations or hospitalizations Helicobacter pylori gastritis Iron deficiency anemia secondary to blood loss (chronic) Surgical History H/O esophagogastroduodenoscopy (10/28/21) History of dilatation and curettage 01/20/2021----> hysteroscopy D[place] [facility] [place]pathology showed secretory endometrium without malignancy. Hysteroscopy was complicated by the fact that patient was bleeding with just thick fluffy endometrium identified without obvious lesions Hx of section x 3 08/10/2013-malpresentation of twin gestation with a leg prolapsed-emergency by Dr. Kali Gates [place] [facility]/19/2014---- repeat for twins performed by Dr. Gates [place] [facility] 04/06/2016-repeat with the drainage of left ovarian cyst and bilateral tubal ligation performed [place] Dr. Cannon [place] [facility] Hx of tubal ligation 04/06/2016-bilateral tubal ligation performed at time of by Dr. Cannon Status post colonoscopy (10/28/21) Status post laparoscopic cholecystectomy Family History Mother Diabetes Hypertension Family/Other Cancer Breast cancer maternal cousin Grandmother Diabetes maternal Denies family history of Colon cancer Ovarian cancer Hyperlipidemia Uterine cancer Thyroid condition Stroke Social History Smoking and tobacco status: former smoker Second hand smoke exposure: No Alcohol intake: never Adopted: No Lives independently: Yes Household members: children Marital status: Single service: No Current occupational status: unemployed Current gender identity: Female Special sofiya needs: No Agree to transfusion: Yes Data Anesthesia 01/22/23 11:30 01/22/23 11:30 Short CBC 01/22/23 Range/Units 11:30 WBC 9.4 (4.0-10.0) 10^3/uL Hgb 11.1 L (11.5-15.3) g/dL Hct 35.9 L (37.0-47.0) % MCV 85.7 (81-99) fl Plt Count 428 H (130-400) 10^3/cmm Neut % (Auto) 59.2 % Neut # (Auto) 5.53 (1.8-7.7) 10^3/uL BMP 01/22/23 11:30 Sodium 132 L Potassium 4.0 Chloride 98 Carbon Dioxide 26 BUN 9 Creatinine 0.5 Glucose 87 Calcium 9.0 Liver Function 01/22/23 Range/Units 11:30 Total Bilirubin 0.2 (0.15-1.2) mg/dL AST 14 (0-32) U/L ALT 18 (0-33) U/L Alkaline Phosphatase 65 (35-105) U/L Albumin 4.3 (3.5-5.2) g/dL Cardiac Studies: No Data to Display
[2023-01-22 13:01] LABS: Add Urine Microscopic? NO; Charge for UA Resulting for Rev
[2023-01-22 13:39] LABS: Bilirubin Urine Neg (Negative); Blood Urine Neg (Negative); Glucose Urine UA Norm (Normal); Ketones Urine Negative (Negative); Leukocyte Esterase Urine Negative (Negative); Nitrate Urine Negative (Negative); Protein Urine Neg (Negative); Specific Gravity, Urine 1.015 (1.005-1.030); Urine Appearance Clear (CLEAR); Urine Color Yellow (Yellow); Urobilinogen Urine Norm (Negative); pH Urine 6 (5-7)
[2023-01-22 14:23] LABS: OR HCG Qualitative Urine Negative (Negative)
[2023-01-22 14:28] LABS: Troponin T (5th) Once 6 ng/L (0-10)
== END ==
LOC: OR 04-05 14:38
PROVIDERS: Anesthesiology; PCP Nurse Practitioner Family; Visit Provider Obstetrics & Gynecology
DX: R07.9 Chest pain, unspecified (principal); Z53.09 Procedure and treatment not carried out because of other contraindication; K21.9 Gastro-esophageal reflux disease without esophagitis; E66.01 Morbid (severe) obesity due to excess calories; Z68.37 Body mass index [BMI] 37.0-37.9, adult; F41.9 Anxiety disorder, unspecified; F32.A Depression, unspecified; Z87.891 Personal history of nicotine dependence; I49.9 Cardiac arrhythmia, unspecified
CPT/HCPCS: 80053; 81003; 84484; 84703; 85025; 86850; 86900; 93005

== ENCOUNTER 2023-01-22 12:57 | Emergency (ER) | payer MEDICAID, SELFPAY ==
[2023-01-22 13:11] VITALS: BP 141/100; PULSE 86; RESP 16; TEMP 36.6; O2SAT 100
--- NOTE | 2023-01-22 14:10 | XR_ITS ---
WS: [id number] EXAMINATION: XR chest 1V portable [id number] REASON FOR EXAM: Chest pain COMPARISON: 07/26/2022 ORDER DATE: 01/22/2023 2:15 PM TECHNIQUE: A single, portable frontal chest x-ray was obtained. X-RAY FINDINGS: The lungs are clear. Pleural spaces are clear. No pleural effusions or pneumothorax. Cardiomediastinal silhouette is normal. No evidence for pulmonary edema. Soft tissue and osseous structures are unremarkable. No tubes or lines are present. XR/XR chest 1V portable [id number] IMPRESSION: Unremarkable frontal portable chest x-ray.
--- NOTE | 2023-01-22 14:11 | ECG_ITS ---
[facility] Test Date: 2023-01-22 Pat Name: Sacha Metz Department: Room: Gender: Female [employer]: : 1995 Requested By: Yo Armstrong Order Number: [id number] Roman MD: Yogesh Chen M.D. Measurements Intervals [place] Rate: 76 P: 17 MA: 141 QRS: 14 QRSD: 89 T: 23 QT: 353 QTc: 399 Interpretive Statements SINUS RHYTHM POSSIBLE ANTERIOR MYOCARDIAL INFARCTION , PROBABLY OLD [30 ms Q WAVE IN V3/V4, OR R < 0.2 mV IN V4] INTERPRETATION BASED ON A DEFAULT AGE OF 40 YEARS Compared to ECG 01/22/2023 11:50:40 Sinus arrhythmia no longer present Myocardial infarct finding still present Electronically Signed On 01-22-2023 23:41:21 CDT by Yogesh Chen M.D. [email or web address] hospital at stone countyJaleva Pharmaceuticalsgood samaritan hospital.[employer]/store/NU/[id number] f
--- NOTE | 2023-01-22 14:26 | ED_ITS ---
HPI - Chest Pain General: Chief Complaint: Chest Pain Stated Complaint: chest pain/abnormal EKG Time Seen by Provider: 01/22/23 14:04 Source: patient Mode of arrival: ambulatory History of Present Illness: [id number] female who presents emergency room with complaints of chest pain. This been going on for several weeks. Character of the chest pain varies at times sometimes she feels a sharp pain other times it is a squeezing sensation. She can reproduce somewhat with palpation across her chest. Increasing intensity over the last week. Its very positional. She has noticed with certain exertional things and gets worse like if she walks up a hill. She has not had any history of any arrhythmias no known history of heart disease she is not on any stimulants she is not on any anticoagulants. No history of arrhythmias. No history of any chronic respiratory illness. She is being seen today for preop evaluation had an abnormal EKG read by the computer as possible old anterior and was directed to the emergency room. She is scheduled to have a D&C for menorrhagia. MD complaint: chest pain Onset (ago): week(s) Timing of current episode: episodic Prior episodes: Yes Onset: during rest and during exertion Pain location: left chest Severity: mild Quality: aching and sharp Relieving factors: nothing Exacerbating factors: nothing Associated symptoms: Deny abdominal pain, diaphoresis, dyspnea, fever(s), leg edema, nausea, palpitations, sense of impending doom, syncope or vomiting Review of Systems Const: Denies: fever(s) or diaphoresis ENMT: Denies: throat pain, ear or mastoid pain, nasal discharge or nasal congestion Card: Reports: chest pain; Denies: palpitations, irregular heart rhythm, edema, swelling of feet/ankles or syncope Resp: Denies: dyspnea GI: Denies: abdominal pain, nausea or vomiting : Denies: flank pain, difficulty voiding, dysuria, urinary frequency or urinary urgency Skin/Breast: Denies: rash or pruritus PFSH ED PFSH: Medical History Anxiety and depression Asthma Has had asthma since she was a child and denies any history of intubations or hospitalizations Helicobacter pylori gastritis Iron deficiency anemia secondary to blood loss (chronic) Surgical History H/O esophagogastroduodenoscopy (10/28/21) History of dilatation and curettage 01/20/2021----> hysteroscopy D&C performed by Dr. Murphy [place] [facility] [place] abnormal uterine bleeding-pathology showed secretory endometrium without malignancy. Hysteroscopy was complicated by the fact that patient was bleeding with just thick fluffy endometrium identified without obvious lesions Hx of section x 3 08/10/2013-malpresentation of twin gestation with a leg prolapsed-emergency by Dr. Kali Gates at [facility] [place] 07/19/2014---- repeat for twins performed by Dr. Gates at [facility] [place]. 04/06/2016-repeat with the drainage of left ovarian cyst and bilateral tubal ligation performed by Dr. Cannon at [facility] [place] Hx of tubal ligation 04/06/2016-bilateral tubal ligation performed at time of by Dr. Cannon Status post colonoscopy (10/28/21) Status post laparoscopic cholecystectomy Family History Mother Diabetes Hypertension Family/Other Cancer Breast cancer maternal cousin Grandmother Diabetes maternal Denies family history of Colon cancer Ovarian cancer Hyperlipidemia Uterine cancer Thyroid condition Stroke Social History Smoking and tobacco status: former smoker Second hand smoke exposure: No Alcohol intake: never Adopted: No Lives independently: Yes Household members: children Marital status: Single service: No Current occupational status: unemployed Current gender identity: Female Special sofiya needs: No Agree to transfusion: Yes Physical Exam Const: COMMON NORMALS: no acute distress GENERAL APPEARANCE: cooperative and comfortable ORIENTATION/CONSCIOUSNESS: Yes awake, Yes oriented to person, Yes oriented to place and Yes oriented to time HENMT: COMMON NORMALS: normocephalic, atraumatic and hearing grossly normal bilaterally HEAD & SCALP: normocephalic and atraumatic Resp: COMMON NORMALS: normal respiratory effort, No retractions, No use of accessory muscles and clear to auscultation bilaterally AUSCULTATION: clear to auscultation bilaterally Cardio: COMMON NORMALS: regular rate, regular rhythm and No murmurs present (Cardio) RATE: regular rate RHYTHM: regular rhythm GI: COMMON NORMALS: Soft to palpation and No hepatosplenomegaly present AUSCULTATION: Yes normoactive bowel sounds PALPATION: Yes Soft to palpation, No Tenderness to palpation present (GI), No Guarding due to palpation present (GI) and Yes No hepatosplenomegaly present Extremity: COMMON NORMALS: normal to inspection, capillary refill normal, no clubbing, cyanosis or edema, no calf tenderness and no pedal edema Neuro: SENSORIUM/ORIENTATION: Yes oriented to person, Yes oriented to place and Yes oriented to time Skin: COMMON NORMALS: no rashes or lesions noted GENERAL SKIN EXAM: no rashes or lesions noted Course Vital Signs: Vital signs: Vital Signs Temperature 97.9 F 01/22/23 13:11 Pulse Rate 79 01/22/23 14:59 Respiratory Rate 24 H 01/22/23 14:59 Blood Pressure 129/112 01/22/23 14:59 Pulse Oximetry 100 01/22/23 13:11 Oxygen Delivery Me thod Room Air 01/22/23 13:11 MDM - Chest Pain Medical Decision Making Chest pain longstanding in nature and reproducible. Appears to be musculoskeletal Labs imaging and EKG reviewed no acute ST changes are noted. Laboratory tests unremarkable. Patient has relatively minimal symptoms at this time. This was caught in a presurgical screening. We will discharge patient home and have her follow-up with primary care Medical Records I reviewed the patient's medical records. Lab Data I reviewed the patient's lab results. 01/22/23 14:25 01/22/23 14:25 Radiology Impressions Chest X-Ray 01/22/23 14:10 IMPRESSION: Unremarkable frontal portable chest x-ray. Laboratory Results WBC 9.4 10^3/uL (4.0-10.0) 01/22/23 14:25 RBC 3.96 10^6/uL (4.1-5.3) L 01/22/23 14:25 Hgb 10.6 g/dL (11.5-15.3) L 01/22/23 14:25 Hct 34.0 % (37.0-47.0) L 01/22/23 14:25 MCV 85.9 fl (81-99) 01/22/23 14:25 MCH 26.8 pg (28.0-34.0) L 01/22/23 14:25 MCHC 31.2 g/dL (30.0-36.0) 01/22/23 14:25 RDW 13.2 % (12.1-15.1) 01/22/23 14:25 Plt Count 398 10^3/cmm (130-400) 01/22/23 14:25 MPV 9.0 fL (7.4-10.4) 01/22/23 14:25 Neut % (Auto) 58.5 % 01/22/23 14:25 Lymph % (Auto) 32.2 % 01/22/23 14:25 Cataño % (Auto) 6.8 % 01/22/23 14:25 Eos % (Auto) 1.9 % 01/22/23 14:25 Baso % (Auto) 0.3 % 01/22/23 14:25 Neut # (Auto) 5.49 10^3/uL (1.8-7.7) 01/22/23 14:25 Lymph # (Auto) 3.0 10^3/uL (0.8-4.8) 01/22/23 14:25 Cataño # (Auto) 0.6 10^3/uL (0.2-0.9) 01/22/23 14:25 Eos # (Auto) 0.2 10^3/uL (0.0-0.8) 01/22/23 14:25 Baso # (Auto) 0.0 10^3/uL (0.0-0.1) 01/22/23 14:25 Nucleated RBC % (auto) 0 % 01/22/23 14:25 Nucleated RBCs # 0.0 /100WBC 01/22/23 14:25 Sodium 136 mmol/L (136-145) 01/22/23 14:25 Potassium 4.1 mmol/L (3.5-5.1) 01/22/23 14:25 Chloride 99 mmol/L (98-107) 01/22/23 14:25 Carbon Dioxide 26 mmol/L (22-29) 01/22/23 14:25 Anion Gap 15.1 (5-19) 01/22/23 14:25 BUN 7 mg/dL (6-20) 01/22/23 14:25 Creatinine 0.6 mg/dL (0.5-0.9) 01/22/23 14:25 GFR Calculation 118.2 mL/min (90-130) 01/22/23 14:25 Glucose 81 mg/dL (65-115) 01/22/23 14:25 Calculated Osmolality 279 mOsm/kg (285-295) L 01/22/23 14:25 Calcium 9.1 mg/dL (8.5-10.5) 01/22/23 14:25 Total Bilirubin 0.2 mg/dL (0.15-1.2) 01/22/23 14:25 AST 15 U/L (0-32) 01/22/23 14:25 ALT 18 U/L (0-33) 01/22/23 14:25 Alkaline Phosphatase 59 U/L (35-105) 01/22/23 14:25 Troponin T Baseline 7 ng/L (0-10) 01/22/23 14:25 Troponin T 120 Minute 6.00 ng/L (0-10) 01/22/23 16:39 Delta Troponin T -1 ABS# (0-10) L 01/22/23 16:39 Total Protein 7.1 g/dL (6.6-8.7) 01/22/23 14:25 Albumin 4.0 g/dL (3.5-5.2) 01/22/23 14:25 Globulin 3.1 g/dL (1.3-4.6) 01/22/23 14:25 Discharge Plan Discharge Patient Disposition: Home Clinical Impression: Atypical chest pain Condition: Stable Prescriptions: No Action albuterol sulfate [ProAir HFA] 90 mcg/actuation HFA aerosol inhaler 1 puff inhalation QID PRN (Reason: shortness of breath or wheezing) Qty: 8.5 6RF budesonide-formoterol [Symbicort] 160-4.5 mcg/actuation HFA aerosol inhaler 2 puff inhalation BID Qty: 10.2 5RF buspirone 10 mg tablet 10 mg PO TID 30 Days Qty: 90 0RF bupropion HCl [Wellbutrin SR] 150 mg tablet sustained-release 12 hr 150 mg PO BID 30 Days Qty: 60 0RF Hold Instructions: Home Medication placed on hold at Doctor's office Rx Instructions: OH HOLD diclofenac sodium [Voltaren Arthritis Pain] 1 % gel 4 g topical QID Qty: 100 6RF amoxicillin 875 mg tablet 875 mg PO BID 10 Days Qty: 20 0RF gabapentin 300 mg capsule 300 mg PO BID 30 Days Qty: 60 2RF ibuprofen 800 mg tablet 800 mg PO TID PRN (Reason: Pain) Imitrex 100 mg tablet See Rx Instructions PO .COMPLEX PRN (Reason: Headache) Rx Instructions: take 1 tab at onset of headache; if no relief, may repeat 1 tab after at least 2 hrs; max = 2 tabs/24 hrs PO pantoprazole 40 mg tablet,delayed release (DR/EC) 40 mg PO DAILY Rx Instructions: TAKE ONE TABLET BY MOUTH DAILY WesTab Plus 27 mg iron- 1 mg tablet 1 tab PO DAILY Rx Instructions: TAKE ONE TABLET BY MOUTH EVERY DAY Ozempic 0.25 mg or 0.5 mg(2 mg/1.5 mL) pen injector 0.5 mg SUBCUT .WKLY Rx Instructions: 0.5mg weekly Discharge Orders: Discharge ED (Routine); Ordered 01/22/23 Ordered By: Yo Rosario Referrals: Tessie Ashley NP [Primary Care Provider] - Patient Instructions: Opioid Safety, Pain Management Activity Restrictions/Additional Instructions: You are seen today because of abnormalities on your EKG. There are no acute changes in the EKG or in your cardiac enzymes. The EKG changes noted earlier appear to be nonspecific. Your cardiac enzymes are negative. Recommend that you follow-up with your primary care doctor. Coding Level of Care Code ED Neurology Technician for Marlin Barger
[2023-01-22 14:43] LABS: Basophils % 0.3 %; Eosinophils # 0.2 10^3/uL (0.0-0.8); Eosinophils % 1.9 %; Hemoglobin 10.6 g/dL (11.5-15.3); Lymphocytes % 32.2 %; Mean Corpuscular HGB Conc 31.2 g/dL (30.0-36.0); Mean Corpuscular Hemoglobin 26.8 pg (28.0-34.0); Mean Corpuscular Volume 85.9 fl (81-99); Monocytes # 0.6 10^3/uL (0.2-0.9); Monocytes % 6.8 %; Neutrophils # 5.49 10^3/uL (1.8-7.7); Neutrophils % 58.5 %; Nucleated Red Blood Cells % 0 %; Platelet Count 398 10^3/cmm (130-400); Red Blood Count 3.96 10^6/uL (4.1-5.3); Red Cell Distribution Width 13.2 % (12.1-15.1); White Blood Count 9.4 10^3/uL (4.0-10.0)
[2023-01-22 14:59] VITALS: BP 129/112; PULSE 79; RESP 24
[2023-01-22 15:03] LABS: Troponin(5th) Baseline 7 ng/L (0-10)
[2023-01-22 15:05] LABS: Alanine Aminotransferase 18 U/L (0-33); Alkaline Phosphatase 59 U/L (35-105); Anion Gap 15.1 (5-19); Aspartate Amino Transferase 15 U/L (0-32); Blood Urea Nitrogen 7 mg/dL (6-20); Calcium 9.1 mg/dL (8.5-10.5); Carbon Dioxide 26 mmol/L (22-29); Chloride 99 mmol/L (98-107); Globulin 3.1 g/dL (1.3-4.6); Glomerular Filtration Rate 118.2 mL/min (90-130); Glucose 81 mg/dL (65-115); Osmolality Calculated 279 mOsm/kg (285-295); Potassium 4.1 mmol/L (3.5-5.1); Sodium 136 mmol/L (136-145); Total Bilirubin 0.2 mg/dL (0.15-1.2); Total Protein 7.1 g/dL (6.6-8.7)
--- NOTE | 2023-01-22 16:11 | ECG_ITS ---
[facility] Test Date: 2023-01-22 Pat Name: Sacha Metz Department: Room: Gender: Female [employer]: : 1995 Requested By: Yo Armstrong Order Number: [id number] Roman MD: Yogesh Chen M.D. Measurements Intervals [place] Rate: 77 P: -11 CO: 124 QRS: 23 QRSD: 82 T: 30 QT: 367 QTc: 415 Interpretive Statements SINUS RHYTHM Compared to ECG 01/22/2023 13:16:40 Myocardial infarct finding no longer present Electronically Signed On 01-22-2023 23:51:06 CDT by Yogesh Chen M.D. [email or web address] regional medical centerNanigansavita health system ontario hospitalSplitSecnd/store/OM/[id number]
[2023-01-22 17:35] LABS: Troponin 5 2HR Delta -1 ABS# (0-10)
== END 2023-01-22 17:56 | disposition home or self-care (01) ==
PROVIDERS: Emergency Provider Family Medicine; PCP Nurse Practitioner Family
DX: R07.89 Other chest pain (principal)
CPT/HCPCS: 36415; 71045; 80053; 84484; 85025; 93005; 99285

== ENCOUNTER 2023-02-09 09:38 | Oncology outpatient (recurring) (ONCR) | payer MEDICAID, SELFPAY ==
[2023-02-05 10:57] LABS: Basophils % 0.4 %; Eosinophils # 0.2 10^3/uL (0.0-0.8); Hematocrit 29.2 % (37.0-47.0); Hemoglobin 8.8 g/dL (11.5-15.3); Lymphocytes # 2.9 10^3/uL (0.8-4.8); Lymphocytes % 28.8 %; Mean Corpuscular HGB Conc 30.1 g/dL (30.0-36.0); Mean Corpuscular Hemoglobin 25.2 pg (28.0-34.0); Mean Corpuscular Volume 83.7 fl (81-99); Mean Platelet Volume 9.7 fL (7.4-10.4); Monocytes # 0.6 10^3/uL (0.2-0.9); Monocytes % 5.8 %; Neutrophils # 6.31 10^3/uL (1.8-7.7); Neutrophils % 62.5 %; Nucleated Red Blood Cells % 0 %; Platelet Count 427 10^3/cmm (130-400); Red Blood Count 3.49 10^6/uL (4.1-5.3); Red Cell Distribution Width 13.2 % (12.1-15.1); White Blood Count 10.1 10^3/uL (4.0-10.0)
[2023-02-05 11:18] LABS: Alanine Aminotransferase 20 U/L (0-33); Albumin Level 4.2 g/dL (3.5-5.2); Alkaline Phosphatase 63 U/L (35-105); Anion Gap 14.2 (5-19); Aspartate Amino Transferase 16 U/L (0-32); Blood Urea Nitrogen 16 mg/dL (6-20); Calcium 8.8 mg/dL (8.5-10.5); Carbon Dioxide 24 mmol/L (22-29); Chloride 102 mmol/L (98-107); Ferritin 9 ng/mL (15-150); Globulin 3.1 g/dL (1.3-4.6); Glomerular Filtration Rate 98.9 mL/min (90-130); Glucose 84 mg/dL (65-115); Iron 22 ug/dL (37-145); Osmolality Calculated 282 mOsm/kg (285-295); Percent Saturation 5.5 % (20-50); Potassium 4.2 mmol/L (3.5-5.1); Sodium 136 mmol/L (136-145); Total Bilirubin 0.2 mg/dL (0.15-1.2); Total Iron Binding Capacity 396 mcg/dl; Total Protein 7.3 g/dL (6.6-8.7); Unsaturated Iron Binding 374 ug/dL (112-347)
[2023-02-05] MEDS: sodium chloride 0.9% 250 ML 75 ML IV (12:37)
[2023-02-05] MEDS: acetaminophen 325 mg Tablet 650 MG PO (12:41)
[2023-02-05] MEDS: diphenhydrAMINE 50 mg/mL SDV 1mL 25 MG IVP (12:42)
[2023-02-05] MEDS: iron sucrose 200 MG in sodium chloride 0.9% (100 ml) 100 ML 220 MG IV (12:46)
[2023-02-05 13:40] VITALS: BP 125/84; PULSE 71; RESP 18; TEMP 36.3; O2SAT 99
[2023-02-07] MEDS: acetaminophen 325 mg Tablet 650 MG PO (10:08)
[2023-02-07] MEDS: sodium chloride 0.9% 250 ML 75 ML IV (10:08)
[2023-02-07] MEDS: iron sucrose 200 MG in sodium chloride 0.9% (100 ml) 100 ML 220 MG IV (10:14)
[2023-02-07 14:50] VITALS: BP 115/78; BP 122/78; PULSE 74; RESP 18; TEMP 36.6; O2SAT 100
[2023-02-09 10:03] VITALS: BP 124/81; PULSE 84; RESP 16; TEMP 36.2; O2SAT 98
[2023-02-09] MEDS: sodium chloride 0.9% 250 ML 75 ML IV (10:21)
[2023-02-09] MEDS: acetaminophen 325 mg Tablet 650 MG PO (10:24)
[2023-02-09] MEDS: diphenhydrAMINE 50 mg/mL SDV 1mL 25 MG IVP (10:26)
[2023-02-09] MEDS: iron sucrose 200 MG in sodium chloride 0.9% (100 ml) 100 ML 220 MG IV (10:30)
[2023-02-09 11:27] VITALS: BP 105/68; PULSE 77; RESP 16; TEMP 36.5; O2SAT 95
== END 2023-02-11 23:59 | disposition home or self-care (01) ==
PROVIDERS: Nurse Practitioner Family; PCP Nurse Practitioner Family; Visit Provider Internal Medicine Medical Oncology
DX: D50.0 Iron deficiency anemia secondary to blood loss (chronic) (principal)
CPT/HCPCS: 80053; 82728; 83540; 83550; 85025; 96365; 96374; 96375; J1200; J1756; J7050

== ENCOUNTER 2023-02-14 09:54 | Oncology outpatient (recurring) (ONCR) | payer MEDICAID, SELFPAY ==
[2023-02-12 10:15] VITALS: BP 111/80; PULSE 84; RESP 18; TEMP 36.2; O2SAT 99
[2023-02-12] MEDS: sodium chloride 0.9% 250 ML 75 ML IV (10:57)
[2023-02-12] MEDS: acetaminophen 325 mg Tablet 650 MG PO (11:00)
[2023-02-12] MEDS: diphenhydrAMINE 50 mg/mL SDV 1mL 25 MG IVP (11:01)
[2023-02-12] MEDS: iron sucrose 200 MG in sodium chloride 0.9% (100 ml) 100 ML 220 MG IV (11:04)
[2023-02-12 11:58] VITALS: BP 125/79; PULSE 75; RESP 18; TEMP 36.5; O2SAT 99
[2023-02-14] MEDS: sodium chloride 0.9% 250 ML 75 ML IV (11:14)
[2023-02-14] MEDS: diphenhydrAMINE 50 mg/mL SDV 1mL 25 MG IVP (11:14)
[2023-02-14 11:15] VITALS: BP 138/78; PULSE 78; RESP 18; TEMP 36.6; O2SAT 98
[2023-02-14] MEDS: acetaminophen 325 mg Tablet 650 MG PO (11:15)
[2023-02-14] MEDS: iron sucrose 200 MG in sodium chloride 0.9% (100 ml) 100 ML 220 MG IV (11:17)
== END 2023-03-14 23:59 | disposition home or self-care (01) ==
PROVIDERS: PCP Nurse Practitioner Family; Visit Provider Internal Medicine Medical Oncology
DX: D50.0 Iron deficiency anemia secondary to blood loss (chronic)
CPT/HCPCS: 96365; 96375; J1200; J1756; J7050

== ENCOUNTER 2023-03-26 12:54 | Oncology outpatient (recurring) (ONCR) | payer MEDICAID, SELFPAY ==
[2023-03-26 13:04] VITALS: BP 141/94; PULSE 87; RESP 20; TEMP 36.4; O2SAT 99
--- NOTE | 2023-03-26 13:09 | PC.NURSE ---
lab drawn right hand x1 attempt
[2023-03-26 13:16] LABS: Basophils % 0.2 %; Eosinophils # 0.2 10^3/uL (0.0-0.8); Eosinophils % 2.3 %; Hematocrit 32.9 % (37.0-47.0); Hemoglobin 9.9 g/dL (11.5-15.3); Lymphocytes % 32.6 %; Mean Corpuscular HGB Conc 30.1 g/dL (30.0-36.0); Mean Corpuscular Hemoglobin 24.2 pg (28.0-34.0); Mean Corpuscular Volume 80.4 fl (81-99); Mean Platelet Volume 9.4 fL (7.4-10.4); Monocytes # 0.6 10^3/uL (0.2-0.9); Monocytes % 6.8 %; Neutrophils # 5.29 10^3/uL (1.8-7.7); Neutrophils % 57.6 %; Nucleated Red Blood Cells % 0 %; Platelet Count 412 10^3/cmm (130-400); Red Blood Count 4.09 10^6/uL (4.1-5.3); Red Cell Distribution Width 14.6 % (12.1-15.1); White Blood Count 9.2 10^3/uL (4.0-10.0)
[2023-03-26 13:32] LABS: Alanine Aminotransferase 19 U/L (0-33); Albumin Level 4.3 g/dL (3.5-5.2); Alkaline Phosphatase 61 U/L (35-105); Anion Gap 13.9 (5-19); Aspartate Amino Transferase 18 U/L (0-32); Blood Urea Nitrogen 9 mg/dL (6-20); Calcium 8.8 mg/dL (8.5-10.5); Carbon Dioxide 22 mmol/L (22-29); Chloride 103 mmol/L (98-107); Ferritin 15 ng/mL (15-150); Globulin 2.9 g/dL (1.3-4.6); Glomerular Filtration Rate 145.9 mL/min (90-130); Glucose 89 mg/dL (65-115); Iron 26 ug/dL (37-145); Osmolality Calculated 278 mOsm/kg (285-295); Percent Saturation 6.1 % (20-50); Potassium 3.9 mmol/L (3.5-5.1); Sodium 135 mmol/L (136-145); Total Bilirubin 0.2 mg/dL (0.15-1.2); Total Iron Binding Capacity 423 mcg/dl; Total Protein 7.2 g/dL (6.6-8.7); Unsaturated Iron Binding 397 ug/dL (112-347)
== END 2023-04-13 23:59 | disposition home or self-care (01) ==
LOC: ONCMED 12:54
PROVIDERS: Nurse Practitioner Family; PCP Nurse Practitioner Family; Visit Provider Internal Medicine Medical Oncology
DX: D50.0 Iron deficiency anemia secondary to blood loss (chronic) (principal)
CPT/HCPCS: 36415; 80053; 82728; 83540; 83550; 85025

== ENCOUNTER 2023-04-28 19:38 | Emergency (ER) | payer MEDICAID, SELFPAY ==
[2023-04-28 20:00] VITALS: BP 140/93; PULSE 97; RESP 18; TEMP 36.7; O2SAT 98; BMI 51.2
--- NOTE | 2023-04-28 22:35 | ED_ITS ---
Documented by User: Aspen Davila MD 04/28/23 23:27 HPI - Abdominal Pain General: Chief Complaint: Abdominal Pain Stated Complaint: Abd Pain Time Seen by Provider: 04/28/23 22:22 History of Present Illness: 27-year-old morbidly obese female presented emergency room with complaints of lower abdominal pain within the past few days. Patient described the pain as sharp sensation with severity of 7 out of 10. Patient reveals a history of ovarian cyst patient was seen and evaluated by her primary physician today for complaint. It is increased pain since the visit. She denies any nausea, vomiting, diarrhea, bloody stool or dark stool. General reveals having some chronic vaginal bleeding with blood clot within the past few years. Patient was scheduled to see vegetable i farmworker for further evaluation Associated Symptoms: Denies bloating, chills, coffee ground emesis, constipation, diarrhea, dysuria, fever(s), hematuria, hematemesis, nausea and vomiting Related Data: Date of Last Menstrual Period: 04/28/23 Review of Systems General: Reports: 10 or more systems reviewed and unremarkable except in HPI and below Const: Denies: fever(s), chills, body aches, change in appetite, change in weight, malaise, diaphoresis or change in sleep pattern GI: Reports: abdominal pain; Denies: nausea, vomiting, hematemesis, coffee ground emesis, dysphagia, early satiety, diarrhea, constipation or bloating : Reports: other (vaginal bleeding for a year with clots ); Denies: flank pain, difficulty voiding, dysuria, urinary frequency, urinary urgency, urinary hesitancy, dribbling, nocturia, urinary incontinence, hematuria, genital pruritis, vaginal dryness or vaginal discharge PFSH ED PFSH: Medical History Anxiety and depression Asthma Has had asthma since she was a child and denies any history of intubations or hospitalizations Elevated blood pressure reading Helicobacter pylori gastritis Iron deficiency anemia secondary to blood loss (chronic) Surgical History H/O esophagogastroduodenoscopy (10/28/21) History of dilatation and curettage 01/20/2021----> hysteroscopy D&C performed by Dr. Murphy at [facility] [place] for abnormal uterine bleeding-pathology showed secretory endometrium without malignancy. Hysteroscopy was complicated by the fact that patient was bleeding with just thick fluffy endometrium identified without obvious lesions Hx of section x 3 08/10/2013-malpresentation of twin gestation with a leg prolapsed-emergency by Dr. Kali Gates at [facility] [place] 07/19/2014---- repeat for twins performed by Dr. Gates at [facility] [place]. 04/06/2016-repeat with the drainage of left ovarian cyst and bilat eral tubal ligation performed by Dr. Cannon at [facility] [place] Hx of tubal ligation 04/06/2016-bilateral tubal ligation performed at time of by Dr. Cannon Status post colonoscopy (10/28/21) Status post laparoscopic cholecystectomy Family History Mother Diabetes Hypertension Family/Other Cancer Breast cancer maternal cousin Grandmother Diabetes maternal Denies family history of Colon cancer Ovarian cancer Hyperlipidemia Uterine cancer Thyroid condition Stroke Social History Smoking and tobacco status: current every day smoker e-cigarettes E-Cigarette Details: vaporizer device E-cig/vape details: 5 mg Second hand smoke exposure: No Alcohol intake: never Substance/Drug Use: never Adopted: No Lives independently: Yes Household members: children Marital status: Single service: No Current occupational status: unemployed Current gender identity: Female Special sofiya needs: No Agree to transfusion: Yes Female Reproductive History: Date of last menstrual period: 04/28/23 Physical Exam Const: COMMON NORMALS: no acute distress, patient oriented x3 and well nourished (obese ) Chest: COMMONS NORMALS: normal inspection of the chest, normal palpation of entire chest wall, normal inspection of the breasts and normal palpation of the breasts Breast/axilla inspection: Yes normal inspection of the breasts BREAST/AXILLA PALPATION: Yes normal palpation of the breasts GI: COMMON NORMALS: Soft to palpation; negative for No hepatosplenomegaly present INSPECTION: Yes normal to inspection, No abdominal wall ecchymosis, No Abdominal wall edema, No Anasarca, No abdominal distension, No Fluid wave present, No Localized GI swelling present, No Laceration(s) present (GI), No GI erythema present, No GI tube present, No GI ostomy present, Yes Abdominal panniculus present and No gravid abdomen AUSCULTATION: Yes normoactive bowel sounds PALPATION: Yes Soft to palpation, Yes Tenderness to palpation present (GI) Details: LLQ and RLQ, No G uarding due to palpation present (GI), No Rigid due to palpation, No No hepatosplenomegaly present, No Hernia present, No Palpable mass present, No Pulsatile mass present and No Ascites present PERCUSSION: no fluid wave RECTAL EXAM: no laceration(s) noted : EXTERNAL FEMALE EXAM: No Hernia present Neuro: COMMON NORMALS: patient oriented x3 Skin: COMMON NORMALS: no rashes or lesions noted, no wounds, turgor normal, no jaundice, no petechiae and no mottling GENERAL SKIN EXAM: no rashes or lesions noted and turgor normal Course ED course: Inna transfer pending fluid evaluation and disposition. Vital Signs: Vital signs: Vital Signs Temperature 98.1 F 04/28/23 20:00 Pulse Rate 83 04/29/23 00:00 Respiratory Rate 18 04/29/23 02:35 Blood Pressure 145/124 04/29/23 00:00 Pulse Oximetry 98 04/29/23 02:35 Oxygen Delivery Me thod Room Air 04/29/23 00:00 MDM - Abdominal Pain Medical Decision Making Patient made comfortable emergency room. Blood work ordered. Viewed a past medical history and medical record from the clinic. Was given IV pain medication and nausea medication. Differential Diagnosis Likely abdominal pain, calculus of kidney, constipation, diverticulitis, endometriosis (Ovarian torsion), gastroenteritis, pancreatitis and small bowel obstruction Lab Data 04/28/23 22:46 04/28/23 22:46 Labs/Radiology: Radiology Impressions Pelvis Ultrasound 04/29/23 23:27 IMPRESSION: Endometrial thickening. Small right ovarian cysts measuring 3 x 2.2 cm. Laboratory Results WBC 9.5 10^3/uL (4.0-10.0) 04/28/23 22:46 RBC 4.05 10^6/uL (4.1-5.3) L 04/28/23 22:46 Hgb 8.9 g/dL (11.5-15.3) L 04/28/23 22:46 Hct 30.5 % (37.0-47.0) L 04/28/23 22:46 MCV 75.3 fl (81-99) L 04/28/23 22:46 MCH 22.0 pg (28.0-34.0) L 04/28/23 22:46 MCHC 29.2 g/dL (30.0-36.0) L 04/28/23 22:46 RDW 15.5 % (12.1-15.1) H 04/28/23 22:46 Plt Count 375 10^3/cmm (130-400) 04/28/23 22:46 MPV 8.7 fL (7.4-10.4) 04/28/23 22:46 Neut % (Auto) 60.2 % 04/28/23 22:46 Lymph % (Auto) 32.0 % 04/28/23 22:46 [place] % (Auto) 6.1 % 04/28/23 22:46 Eos % (Auto) 1.3 % 04/28/23 22:46 Baso % (Auto) 0.2 % 04/28/23 22:46 Neut # (Auto) 5.69 10^3/uL (1.8-7.7) 04/28/23 22:46 Lymph # (Auto) 3.0 10^3/uL (0.8-4.8) 04/28/23 22:46 [place] # (Auto) 0.6 10^3/uL (0.2-0.9) 04/28/23 22:46 Eos # (Auto) 0.1 10^3/uL (0.0-0.8) 04/28/23 22:46 Baso # (Auto) 0.0 10^3/uL (0.0-0.1) 04/28/23 22:46 Nucleated RBC % (auto) 0 % 04/28/23 22:46 Nucleated RBCs # 0.0 /100WBC 04/28/23 22:46 Sodium 139 mmol/L (136-145) 04/28/23 22:46 Potassium 3.6 mmol/L (3.5-5.1) 04/28/23 22:46 Chloride 102 mmol/L (98-107) 04/28/23 22:46 Carbon Dioxide 25 mmol/L (22-29) 07/15/23 22:46 Anion Gap 15.6 (5-19) 04/28/23 22:46 BUN 7 mg/dL (6-20) 04/28/23 22:46 Creatinine 0.7 mg/dL (0.5-0.9) 04/28/23 22:46 GFR Calculation 98.9 mL/min (90-130) 04/28/23 22:46 Glucose 93 mg/dL (65-115) 04/28/23 22:46 Calculated Osmolality 286 mOsm/kg (285-295) 04/28/23 22:46 Calcium 8.8 mg/dL (8.5-10.5) 04/28/23 22:46 Total Bilirubin 0.3 mg/dL (0.15-1.2) 04/28/23 22:46 AST 16 U/L (0-32) 04/28/23 22:46 ALT 18 U/L (0-33) 04/28/23 22:46 Alkaline Phosphatase 79 U/L (35-105) 04/28/23 22:46 Total Protein 7.4 g/dL (6.6-8.7) 04/28/23 22:46 Albumin 4.3 g/dL (3.5-5.2) 04/28/23 22:46 Globulin 3.1 g/dL (1.3-4.6) 04/28/23 22:46 Lipase 13 U/L (13-60) 04/28/23 22:46 HCG, Qual Negative (Negative) 04/28/23 23:32 Urine Color Yellow (Yellow) 04/28/23 23:32 Urine Appearance Cloudy (CLEAR) A 04/28/23 23:32 Urine pH 5 (5-7) 04/28/23 23:32 Ur Specific [place] 1.025 (1.005-1.030) 04/28/23 23:32 Urine Protein Trace (Negative) 04/28/23 23:32 Urine Glucose (UA) Norm (Normal) 04/28/23 23:32 Urine Ketones 1+ (Negative) H 04/28/23 23:32 Urine Blood 3+ (Negative) H 04/28/23 23:32 Urine Nitrate Negative (Negative) 04/28/23 23:32 Urine Bilirubin Neg (Negative) 04/28/23 23:32 Urine Urobilinogen 1 mg/dL (Negative) H 04/28/23 23:32 Ur Leukocyte Esterase Trace (Negative) H 04/28/23 23:32 Urine RBC >100 /hpf (0-2) H 04/28/23 23:32 Urine WBC 0-4 /hpf (0-5) H 04/28/23 23:32 Ur Squamous Epith Cells 0-4 /hpf (0-5) H 04/28/23 23:32 Amorphous Sediment Not Reportable 04/28/23 23:32 Urine Bacteria 1+ /hpf (NONE) H 04/28/23 23:32 Urine Mucus 1+ /hpf 04/28/23 23:32 Discharge Plan Discharge Patient Disposition: Home Clinical Impression: Abdominal pain Condition: Stable Prescriptions: New hydrocodone-acetaminophen 5-325 mg tablet 1 tab PO Q8H PRN (Reason: pain) Qty: 7 0RF ketorolac 10 mg tablet 10 mg PO TID PRN (Reason: pain) Qty: 10 0RF No Action budesonide-formoterol [Symbicort] 160-4.5 mcg/actuation HFA aerosol inhaler 2 puff inhalation BID Qty: 10.2 5RF diclofenac sodium [Voltaren Arthritis Pain] 1 % gel 4 g topical QID Qty: 100 6RF diclofenac sodium 75 mg tablet,delayed release (DR/EC) 75 mg PO BID PRN (Reason: pain) Qty: 60 0RF albuterol sulfate [ProAir HFA] 90 mcg/actuation HFA aerosol inhaler 1 puff inhalation QID PRN (Reason: shortness of breath or wheezing) Qty: 8.5 6RF amoxicillin-pot clavulanate [Augmentin] 500-125 mg tablet 1 tab PO TID 10 Days Qty: 30 0RF phentermine 37.5 mg tablet 37.5 mg PO DAILY 30 Days Qty: 30 0RF Rx Instructions: must administer 30 minutes before or 1-2 hours after breakfast gabapentin 600 mg tablet 600 mg PO BID 30 Days Qty: 60 1RF pantoprazole 40 mg tablet,delayed release (DR/EC) 40 mg PO DAILY Rx Instructions: TAKE ONE TABLET BY MOUTH DAILY WesTab Plus 27 mg iron- 1 mg tablet 1 tab PO DAILY Rx Instructions: TAKE ONE TABLET BY MOUTH EVERY DAY Discharge Orders: Discharge ED (Routine); Ordered 04/29/23 Ordered By: Taurus Abraham Referrals: Hipolito Mancilla MD [Physician] - 4-7 days Tessie Ashley NP [Primary Care Provider] - Patient Instructions: Abnormal (Dysfunctional) Uterine Bleeding (ED), Ovarian Cyst (ED), Abdominal Pain (ED), Opioid Safety, Pain Management Activity Restrictions/Additional Instructions: Return for fever greater than 100, vomiting liquids or medications, other concerning symptoms. 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 Let them know you were seen here in the ER this weekend. Alternate pain medications prescribed. Ice or heat may help as well. Coding Level of Care Code ED Hull Line Crew Member for Chg Fwd Documented by User: Taurus Abraham DO 04/29/23 02:41 HPI - Abdominal Pain 2 General: Chief Complaint: Abdominal Pain Stated Complaint: Abd Pain Time Seen by Provider: 04/28/23 22:22 PFSH ED PFSH: Medical History Anxiety and depression Asthma Has had asthma since she was a child and denies any history of intubations or hospitalizations Elevated blood pressure reading Helicobacter pylori gastritis Iron deficiency anemia secondary to blood loss (chronic) Surgical History H/O esophagogastroduodenoscopy (10/28/21) History of dilatation and curettage 01/20/2021----> hysteroscopy D&C performed by Dr. Murphy at [facility] [place] for abnormal uterine bleeding-pathology showed secretory endometrium without malignancy. Hysteroscopy was complicated by the fact that patient was bleeding with just thick fluffy endometrium identified without obvious lesions Hx of section x 3 08/10/2013-malpresentation of twin gestation with a leg prolapsed-emergency by Dr. Kali Gates at [facility] 07/19/2014---- repeat for twins performed by Dr. Gates at [facility] [place]. 04/06/2016-repeat with the drainage of left ovarian cyst and bilateral tubal ligation performed by Dr. Cannon at [facility] [place] Hx of tubal ligation 04/06/2016-bilateral tubal ligation performed at time of by Dr. Cannon Status post colonoscopy (10/28/21) Status post laparoscopic cholecystectomy Family History Mother Diabetes Hypertension Family/Other Cancer Breast cancer maternal cousin Grandmother Diabetes maternal Denies family history of Colon cancer Ovarian cancer Hyperlipidemia Uterine cancer Thyroid condition Stroke Social History Smoking and tobacco status: current every day smoker e-cigarettes E-Cigarette Details: vaporizer device E-cig/vape details: 5 mg Second hand smoke exposure: No Alcohol intake: never Substance/Drug Use: never Adopted: No Lives independently: Yes Household members: children Marital status: Single service: No Current occupational status: unemployed Current gender identity: Female Special sofiya needs: No Agree to transfusion: Yes Course Vital Signs: Vital signs: Vital Signs Temperature 98.1 F 04/28/23 20:00 Pulse Rate 83 04/29/23 00:00 Respiratory Rate 18 04/29/23 02:35 Blood Pressure 145/124 04/29/23 00:00 Pulse Oximetry 98 04/29/23 02:35 Oxygen Delivery Me thod Room Air 04/29/23 00:00 MDM - Abdominal Pain Medical Decision Making Patient made comfortable emergency room. Blood work ordered. Viewed a past medical history and medical record from the clinic. Was given IV pain medication and nausea medication. 27-year-old female left to co pending laboratory and ultrasound findings in the ER. This patient is afebrile. Her vitals are otherwise normal as well. She is anemic with hemoglobin of 9, which is stable for her. No leukocytosis. BMP is normal. Urinalysis shows contamination with vaginal bleeding, without evidence of infection. Lipase is normal. Pelvic ultrasound shows endometrial thickening as a reason for her continued vaginal bleeding. There is a small ovarian right cyst with normal blood flow. She will be allowed discharge. She has follow-up with gynecology. Lab Data 04/28/23 22:46 04/28/23 22:46 Labs/Radiology: Radiology Impressions Pelvis Ultrasound 04/29/23 23:27 IMPRESSION: Endometrial thickening. Small right ovarian cysts measuring 3 x 2.2 cm. Laboratory Results WBC 9.5 10^3/uL (4.0-10.0) 04/28/23 22:46 RBC 4.05 10^6/uL (4.1-5.3) L 04/28/23 22:46 Hgb 8.9 g/dL (11.5-15.3) L 04/28/23 22:46 Hct 30.5 % (37.0-47.0) L 04/28/23 22:46 MCV 75.3 fl (81-99) L 04/28/23 22:46 MCH 22.0 pg (28.0-34.0) L 04/28/23 22:46 MCHC 29.2 g/dL (30.0-36.0) L 04/28/23 22:46 RDW 15.5 % (12.1-15.1) H 04/28/23 22:46 Plt Count 375 10^3/cmm (130-400) 04/28/23 22:46 MPV 8.7 fL (7.4-10.4) 04/28/23 22:46 Neut % (Auto) 60.2 % 04/28/23 22:46 Lymph % (Auto) 32.0 % 04/28/23 22:46 [place] % (Auto) 6.1 % 04/28/23 22:46 Eos % (Auto) 1.3 % 04/28/23 22:46 Baso % (Auto) 0.2 % 04/28/23 22:46 Neut # (Auto) 5.69 10^3/uL (1.8-7.7) 04/28/23 22:46 Lymph # (Auto) 3.0 10^3/uL (0.8-4.8) 04/28/23 22:46 [place] # (Auto) 0.6 10^3/uL (0.2-0.9) 04/28/23 22:46 Eos # (Auto) 0.1 10^3/uL (0.0-0.8) 04/28/23 22:46 Baso # (Auto) 0.0 10^3/uL (0.0-0.1) 04/28/23 22:46 Nucleated RBC % (auto) 0 % 04/28/23 22:46 Nucleated RBCs # 0.0 /100WBC 04/28/23 22:46 Sodium 139 mmol/L (136-145) 04/28/23 22:46 Potassium 3.6 mmol/L (3.5-5.1) 04/28/23 22:46 Chloride 102 mmol/L (98-107) 04/28/23 22:46 Carbon Dioxide 25 mmol/L (22-29) 04/28/23 22:46 Anion Gap 15.6 (5-19) 04/28/23 22:46 BUN 7 mg/dL (6-20) 04/28/23 22:46 Creatinine 0.7 mg/dL (0.5-0.9) 04/28/23 22:46 GFR Calculation 98.9 mL/min (90-130) 04/28/23 22:46 Glucose 93 mg/dL (65-115) 04/28/23 22:46 Calculated Osmolality 286 mOsm/kg (285-295) 04/28/23 22:46 Calcium 8.8 mg/dL (8.5-10.5) 04/28/23 22:46 Total Bilirubin 0.3 mg/dL (0.15-1.2) 04/28/23 22:46 AST 16 U/L (0-32) 04/28/23 22:46 ALT 18 U/L (0-33) 04/28/23 22:46 Alkaline Phosphatase 79 U/L (35-105) 04/28/23 22:46 Total Protein 7.4 g/dL (6.6-8.7) 04/28/23 22:46 Albumin 4.3 g/dL (3.5-5.2) 04/28/23 22:46 Globulin 3.1 g/dL (1.3-4.6) 04/28/23 22:46 Lipase 13 U/L (13-60) 04/28/23 22:46 HCG, Qual Negative (Negative) 04/28/23 23:32 Urine Color Yellow (Yellow) 04/28/23 23:32 Urine Appearance Cloudy (CLEAR) A 04/28/23 23:32 Urine pH 5 (5-7) 04/28/23 23:32 Ur Specific [place] 1.025 (1.005-1.030) 04/28/23 23:32 Urine Protein Trace (Negative) 04/28/23 23:32 Urine Glucose (UA) Norm (Normal) 04/28/23 23:32 Urine Ketones 1+ (Negative) H 04/28/23 23:32 Urine Blood 3+ (Negative) H 04/28/23 23:32 Urine Nitrate Negative (Negative) 04/28/23 23:32 Urine Bilirubin Neg (Negative) 04/28/23 23:32 Urine Urobilinogen 1 mg/dL (Negative) H 04/28/23 23:32 Ur Leukocyte Esterase Trace (Negative) H 04/28/23 23:32 Urine RBC >100 /hpf (0-2) H 04/28/23 23:32 Urine WBC 0-4 /hpf (0-5) H 04/28/23 23:32 Ur Squamous Epith Cells 0-4 /hpf (0-5) H 04/28/23 23:32 Amorphous Sediment Not Reportable 04/28/23 23:32 Urine Bacteria 1+ /hpf (NONE) H 04/28/23 23:32 Urine Mucus 1+ /hpf 04/28/23 23:32 Discharge Plan Discharge Patient Disposition: Home Clinical Impression: Abdominal pain Condition: Stable Prescriptions: New hydrocodone-acetaminophen 5-325 mg tablet 1 tab PO Q8H PRN (Reason: pain) Qty: 7 0RF ketorolac 10 mg tablet 10 mg PO TID PRN (Reason: pain) Qty: 10 0RF No Action budesonide-formoterol [Symbicort] 160-4.5 mcg/actuation HFA aerosol inhaler 2 puff inhalation BID Qty: 10.2 5RF diclofenac sodium [Voltaren Arthritis Pain] 1 % gel 4 g topical QID Qty: 100 6RF diclofenac sodium 75 mg tablet,delayed release (DR/EC) 75 mg PO BID PRN (Reason: pain) Qty: 60 0RF albuterol sulfate [ProAir HFA] 90 mcg/actuation HFA aerosol inhaler 1 puff inhalation QID PRN (Reason: shortness of breath or wheezing) Qty: 8.5 6RF amoxicillin-pot clavulanate [Augmentin] 500-125 mg tablet 1 tab PO TID 10 Days Qty: 30 0RF phentermine 37.5 mg tablet 37.5 mg PO DAILY 30 Days Qty: 30 0RF Rx Instructions: must administer 30 minutes before or 1-2 hours after breakfast gabapentin 600 mg tablet 600 mg PO BID 30 Days Qty: 60 1RF pantoprazole 40 mg tablet,delayed release (DR/EC) 40 mg PO DAILY Rx Instructions: TAKE ONE TABLET BY MOUTH DAILY WesTab Plus 27 mg iron- 1 mg tablet 1 tab PO DAILY Rx Instructions: TAKE ONE TABLET BY MOUTH EVERY DAY Discharge Orders: Discharge ED (Routine); Ordered 04/29/23 Ordered By: Taurus Abraham Referrals: Hipolito Mancilla MD [Physician] - 4-7 days Tessie Ashley NP [Primary Care Provider] - Patient Instructions: Abnormal (Dysfunctional) Uterine Bleeding (ED), Ovarian Cyst (ED), Abdominal Pain (ED), Opioid Safety, Pain Management Activity Restrictions/Additional Instructions: Return for fever greater than 100, vomiting liquids or medications, other concerning symptoms. 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 Let them know you were seen here in the ER this weekend. Alternate pain medications prescribed. Ice or heat may help as well. Coding Level of Care Code ED [employer] Line Crew Member for Marlin Barger
[2023-04-28 22:58] LABS: Basophils % 0.2 %; Eosinophils # 0.1 10^3/uL (0.0-0.8); Eosinophils % 1.3 %; Hematocrit 30.5 % (37.0-47.0); Hemoglobin 8.9 g/dL (11.5-15.3); Mean Corpuscular HGB Conc 29.2 g/dL (30.0-36.0); Mean Corpuscular Volume 75.3 fl (81-99); Mean Platelet Volume 8.7 fL (7.4-10.4); Monocytes # 0.6 10^3/uL (0.2-0.9); Monocytes % 6.1 %; Neutrophils # 5.69 10^3/uL (1.8-7.7); Neutrophils % 60.2 %; Nucleated Red Blood Cells % 0 %; Platelet Count 375 10^3/cmm (130-400); Red Blood Count 4.05 10^6/uL (4.1-5.3); Red Cell Distribution Width 15.5 % (12.1-15.1); White Blood Count 9.5 10^3/uL (4.0-10.0)
[2023-04-28 23:12] LABS: Alanine Aminotransferase 18 U/L (0-33); Albumin Level 4.3 g/dL (3.5-5.2); Alkaline Phosphatase 79 U/L (35-105); Anion Gap 15.6 (5-19); Aspartate Amino Transferase 16 U/L (0-32); Blood Urea Nitrogen 7 mg/dL (6-20); Calcium 8.8 mg/dL (8.5-10.5); Carbon Dioxide 25 mmol/L (22-29); Chloride 102 mmol/L (98-107); Creatinine Clr Calc Pharmacy 151.3763; Globulin 3.1 g/dL (1.3-4.6); Glomerular Filtration Rate 98.9 mL/min (90-130); Glucose 93 mg/dL (65-115); Lipase 13 U/L (13-60); Osmolality Calculated 286 mOsm/kg (285-295); Potassium 3.6 mmol/L (3.5-5.1); Sodium 139 mmol/L (136-145); Total Bilirubin 0.3 mg/dL (0.15-1.2); Total Protein 7.4 g/dL (6.6-8.7)
[2023-04-28] MEDS: ondansetron 2 mg/ML SDV 2 mL 4 MG IVP (23:37)
[2023-04-28] MEDS: morphine 4 mg/mL SDV 1 mL IVP (23:39)
[2023-04-29] VITALS: BP 145/124; PULSE 83; O2SAT 99
[2023-04-29 00:07] LABS: Add Urine Microscopic? YES; Bilirubin Urine Neg (Negative); Blood Urine 3+ (Negative); Glucose Urine UA Norm (Normal); Ketones Urine 1+ (Negative); Leukocyte Esterase Urine Trace (Negative); Nitrate Urine Negative (Negative); Protein Urine Trace (Negative); Specific Gravity, Urine 1.025 (1.005-1.030); Urine Appearance Cloudy (CLEAR); Urine Color Yellow (Yellow); Urobilinogen Urine 1 mg/dL (Negative); pH Urine 5 (5-7)
[2023-04-29 00:08] LABS: RBC Urine >100 /hpf (0-2); Squamous Epithelial Cell Urine 0-4 /hpf (0-5)
[2023-04-29 00:09] LABS: Bacteria Urine 1+ /hpf; Mucus Urine 1+ /hpf; WBC Urine 0-4 /hpf (0-5)
[2023-04-29 00:10] LABS: Add Urine Culture? Yes
[2023-04-29 00:19] LABS: HCG Qualitative Urine. Negative (Negative)
[2023-04-29] MEDS: ondansetron 2 mg/ML SDV 2 mL 4 MG IVP (01:09)
[2023-04-29] MEDS: ketorolac 30 mg/mL INJ IVP (01:11)
[2023-04-29 02:35] VITALS: RESP 18; O2SAT 98
[2023-04-29] MEDS: HYDROmorphone 1 mg/mL INJ 1 mL IVP (02:35)
[2023-04-29 02:40] VITALS: BP 153/90; PULSE 102; RESP 18; O2SAT 98
--- NOTE | 2023-04-29 03:02 | PC.NURSE ---
Pt was sent home with 2 tabs of OXYCODONE 5-[address] Abraham's order.
[2023-04-29 03:06] VITALS: BP 153/80; PULSE 85; RESP 18; O2SAT 97
--- NOTE | 2023-04-29 23:27 | USR_ITS ---
PROCEDURE INFORMATION: Exam: US Nonobstetric Pelvis; Complete Exam date and time: 04/29/2023 1:17 AM Age: 27 years old Clinical indication: Pain; Dysmenorrhea; Additional info: For torsion TECHNIQUE: Imaging protocol: Transabdominal pelvic nonobstetric ultrasound. Complete exam. Real time ultrasound with image documentation. COMPARISON: US pelvic complete* [id number] 12/09/2020 6:35 PM FINDINGS: Uterus: The endometrium is thickened measuring 2.3 cm. Right ovary/adnexa: Small right ovarian cysts measuring 3 x 2.2 cm. Otherwise unremarkable appearance of the right ovary. Left ovary/adnexa: Ovary is normal. No mass. Normal blood flow. Intraperitoneal space: No intraperitoneal fluid. Urinary bladder: Normal. US/US pelvic complete* [id number] IMPRESSION: Endometrial thickening. Small right ovarian cysts measuring 3 x 2.2 cm.
== END 2023-04-29 03:04 | disposition home or self-care (01) ==
PROVIDERS: Family Medicine; Emergency Provider Emergency Medicine; PCP Nurse Practitioner Family
DX: R10.30 Lower abdominal pain, unspecified (principal); F17.290 Nicotine dependence, other tobacco product, uncomplicated
CPT/HCPCS: 76856; 80053; 81001; 81003; 81025; 83690; 85025; 87086; 96374; 96375; 96376; 99285; J1170; J1885; J2270; J2405

== ENCOUNTER 2023-05-03 15:15 | Outpatient (CLI) | payer MEDICAID, SELFPAY ==
--- NOTE | 2023-05-03 14:45 | USCV_ITS ---
Sacha Metz Age: 27 Gender: F : 1995 Exam Date: 05/03/2023 16:07 Ordering Phys: Yogesh Chen MD ([email or web address]) Technologist: Edilia Cox Exam Location: [facility] [place] Indication: SOB,, CP BP: 117 / 78 HR: 81 Rhythm: Sinus Technical Quality: Adequate MEASUREMENTS (Male / Female) Normal Values 2D ECHO LV Diastolic Diameter PLAX 4.7 cm 4.2 - 5.9 / 3.9 - 5.3 cm LV Systolic Diameter PLAX 2.7 cm IVS Diastolic Thickness 1.2 cm 0.6 - 1.0 / 0.6 - 0.9 cm IVS Systolic Thickness 1.6 cm LVPW Diastolic Thickness 0.9 cm 0.6 - 1.0 / 0.6 - 0.9 cm LVPW Systolic Thickness 1.3 cm LVOT Diameter 2.3 cm LV Ejection Fraction 2D Teich 72.7 % LV Ejection Fraction MOD 2C 74.8 % LV Ejection Fraction 2C AL 75.6 % LA Diameter 3.6 cm LA Width 3.4 cm LA Height 4.8 cm RA Width 2.2 cm RA Height 4.1 cm Aorta at Sinotubular Diameter 3.0 cm IVC Diameter 1.6 cm M-MODE Aortic Annulus Diameter 3.2 cm LA Ao Ratio MM 1.2 MV E Point Septal Separation 0.3 cm DOPPLER AV Peak Velocity 145.0 cm/s LVOT Peak Velocity 117.0 cm/s AV Area Cont Eq vti 3.7 cm squared AV Area Cont Eq pk 3.3 cm squared MV Peak Velocity 105.0 cm/s MV Area PHT 4.5 cm squared Mitral E to A Ratio 1.3 MV E' Velocity 61.0 cm/s Mitral E to MV E' Ratio 8.0 Mitral E to LV E' Lateral Ratio 6.1 Mitral E to LV E' Septal Ratio 11.5 TR Peak Velocity 78.7 cm/s TR Peak Gradient 2.5 mmHg Right Atrial Pressure 5.0 mmHg Pulmonary Artery Systolic Pressu 7.5 mmHg PV Peak Velocity 99.0 cm/s RV Acceleration Time 0.2 s RV Ejection Time 0.3 s RV AcT/ET 0.5 FINDINGS Left Ventricle Normal left ventricular size and systolic function, EF 65 %. No regional wall motion abnormalities. Right Ventricle The right ventricle is normal in size and function. Right Atrium The right atrium is normal in size. Left Atrium The left atrium is normal in size. Mitral Valve No gross abnormalities noted Aortic Valve No gross abnormalities noted Tricuspid Valve Trace tricuspid valve regurgitation. Pulmonic Valve No gross abnormalities noted Pericardium Normal pericardium without effusion. Aorta Normal ascending aorta dimension. IVC Normal inferior vena cava. CONCLUSIONS Normal left ventricular size and systolic function, EF 65 %. No regional wall motion abnormalities. Normal cardiac chamber sizes. Trace of tricuspid regurgitation. There is no pericardial effusion. There are no intracardiac masses. No similar previous studies are available for comparison Dr Yogesh Chen MD FACC (Electronically Signed) Final Date: 08 May 2023 09:36 S
== END 2023-05-03 15:16 | disposition home or self-care (01) ==
LOC: RAD 15:16
PROVIDERS: PCP Nurse Practitioner Family; Visit Provider Internal Medicine Cardiovascular Disease
DX: R06.09 Other forms of dyspnea (principal); R07.9 Chest pain, unspecified; R06.02 Shortness of breath
CPT/HCPCS: 93306

== ENCOUNTER 2023-05-14 11:00 | Oncology outpatient (recurring) (ONCR) | payer MEDICAID, SELFPAY ==
[2023-05-01 09:19] VITALS: BP 119/76; PULSE 88; RESP 18; TEMP 36.2
[2023-05-01 09:50] LABS: Basophils % 0.3 %; Eosinophils # 0.2 10^3/uL (0.0-0.8); Eosinophils % 2.6 %; Hematocrit 29.5 % (37.0-47.0); Hemoglobin 8.5 g/dL (11.5-15.3); Lymphocytes # 2.9 10^3/uL (0.8-4.8); Lymphocytes % 32.8 %; Mean Corpuscular HGB Conc 28.8 g/dL (30.0-36.0); Mean Corpuscular Hemoglobin 22.1 pg (28.0-34.0); Mean Corpuscular Volume 76.8 fl (81-99); Mean Platelet Volume 9.2 fL (7.4-10.4); Monocytes # 0.6 10^3/uL (0.2-0.9); Monocytes % 6.5 %; Neutrophils # 5.09 10^3/uL (1.8-7.7); Neutrophils % 57.5 %; Nucleated Red Blood Cells % 0 %; Platelet Count 425 10^3/cmm (130-400); Red Blood Count 3.84 10^6/uL (4.1-5.3); Red Cell Distribution Width 15.6 % (12.1-15.1); White Blood Count 8.9 10^3/uL (4.0-10.0)
[2023-05-01 10:05] LABS: Ferritin 18 ng/mL (15-150); Iron 20 ug/dL (37-145); Percent Saturation 5.4 % (20-50); Total Iron Binding Capacity 365 mcg/dl; Unsaturated Iron Binding 345 ug/dL (112-347)
[2023-05-01] MEDS: iron sucrose 200 MG in sodium chloride 0.9% (100 ml) 100 ML 220 MG IV (12:12)
[2023-05-01] MEDS: sodium chloride 0.9% 250 ML 75 ML IV (12:13)
[2023-05-01] MEDS: acetaminophen 325 mg Tablet 650 MG PO (12:14)
[2023-05-01] MEDS: diphenhydrAMINE 50 mg/mL SDV 1mL 25 MG IVP (12:15)
[2023-05-01 12:55] VITALS: BP 135/89; PULSE 87; RESP 18; TEMP 36.6; O2SAT 98
[2023-05-03 13:18] VITALS: BP 126/94; PULSE 87; RESP 16; TEMP 36.3; O2SAT 99
[2023-05-03] MEDS: acetaminophen 325 mg Tablet 650 MG PO (14:14)
[2023-05-03] MEDS: iron sucrose 200 MG in sodium chloride 0.9% (100 ml) 100 ML 220 MG IV (14:15)
[2023-05-03 14:30] VITALS: BP 109/71; PULSE 84; RESP 18; TEMP 36.5
[2023-05-07] MEDS: sodium chloride 0.9% 250 ML 75 ML IV (13:27)
[2023-05-07] MEDS: diphenhydrAMINE 50 mg/mL SDV 1mL 25 MG IVP (13:27)
[2023-05-07] MEDS: iron sucrose 200 MG in sodium chloride 0.9% (100 ml) 100 ML 220 MG IV (13:28)
[2023-05-07] MEDS: acetaminophen 325 mg Tablet 650 MG PO (13:28)
[2023-05-07 13:35] VITALS: BP 132/91; PULSE 79; RESP 18; TEMP 36.7; O2SAT 98
[2023-05-07 14:10] VITALS: BP 129/87; PULSE 79; TEMP 36.7; O2SAT 99
[2023-05-09] MEDS: iron sucrose 200 MG in sodium chloride 0.9% (100 ml) 100 ML 220 MG IV (13:24)
[2023-05-09 14:00] VITALS: BP 131/82; PULSE 83; RESP 16; TEMP 36.4; O2SAT 97
[2023-05-14] MEDS: iron sucrose 200 MG in sodium chloride 0.9% (100 ml) 100 ML 220 MG IV (11:19)
[2023-05-14 11:55] VITALS: BP 105/63; PULSE 81; RESP 16; TEMP 36.7; O2SAT 97
== END 2023-05-14 23:59 | disposition home or self-care (01) ==
PROVIDERS: Nurse Practitioner Family; PCP Nurse Practitioner Family; Visit Provider Specialist
DX: D50.0 Iron deficiency anemia secondary to blood loss (chronic) (principal)
CPT/HCPCS: 82728; 83540; 83550; 85025; 96365; 96375; J1200; J1756; J7050

== ENCOUNTER 2023-05-31 08:21 | Day surgery (SDC) | payer MEDICAID, SELFPAY ==
[2023-05-30 14:13] VITALS: BMI 58.3
--- NOTE | 2023-05-30 20:07 | P.HP_ITS ---
Same Day Surgery H&P Indication for Procedure/HPI DATE OF PROCEDURE: May 31, 2023 CHIEF COMPLAINT/INDICATIONFOR SURGICAL PROCEDURE: abnormal uterine bleeding PREOP DIAGNOSIS: abnormal uterine bleeding PLANNED PROCEDURE: Operation Date: 05/31/23 10:00 Proposed Procedures p Hysteroscopy, endometrial sampling, [ossible endometrial polypectomy with M yosure 16380, Intrauterine device placement 47636,N93.9, Z30.9(Not Applicable) - Sergio Steve MD s Poylpectomy(Not Applicable) - Sergio Steve MD s Placement of Intrauterine Device(Not Applicable) - Sergio Steve MD 27 y.o.? L6 h/o BTL h/o heavy and irregular periods x 7 years has been bleeding on and off for the past year with large clots now scheduled for hysteroscopy, endometrial sampling, possible endometrial polypectomy;? mirena intrauterine device insertion getting iron infusions due to anemia Medications/Allergies* Home Medications Medication Instructions Recorded Confirmed Type vitamin with calcium 1 tab PO DAILY 01/22/23 05/30/23 History no.72-iron 27 mg-folic acid 1 mg tablet (WesTab Plus) norgestimate 0.25 mg-ethinyl ea PO 04/30/23 05/29/23 History estradiol 35 mcg tablet (Estarylla) Allergies/Adverse Reactions Allergy/AdvReac Type Severity Reaction Status Date / Time No Known Allergies Allergy Verified 05/29/23 14:35 Pertinent History/Comorbid Conditions* Medical History (Updated 05/07/23 @ 00:01 by DEBORAH Crooks) Anxiety and depression Asthma Has had asthma since she was a child and denies any history of intubations or hospitalizations Elevated blood pressure reading Helicobacter pylori gastritis Iron deficiency anemia secondary to blood loss (chronic) Surgical History (Updated 10/28/21 @ 09:44 by Sheng Ralph MD) H/O esophagogastroduodenoscopy (10/28/21) History of dilatation and curettage 01/20/2021----> hysteroscopy D&C performed by Dr. Murphy at [facility] [place] for abnormal uterine bleeding-pathology showed secretory endometrium without malignancy. Hysteroscopy was complicated by the fact that patient was bleeding with just thick fluffy endometrium identified without obvious lesions Hx of section x 3 08/10/2013-malpresentation of twin gestation with a leg prolapsed-emergency by Dr. Kali Gates at [facility] 07/19/2014---- repeat for twins performed by Dr. Gates at [facility] [place]. 04/06/2016-repeat with the drainage of left ovarian cyst and bilateral tubal ligation performed by Dr. Cannon at [facility] [place] Hx of tubal ligation 04/06/2016-bilateral tubal ligation performed at time of by Dr. Cannon Status post colonoscopy (10/28/21) Status post laparoscopic cholecystectomy Family History (Updated 01/03/21 @ 09:29 by Liliam Giles, DELORES) Diabetes Mother Grandmother maternal Breast cancer Family/Other maternal cousin Cancer Family/Other Hypertension Mother Denies family history of Colon cancer Ovarian cancer Hyperlipidemia Uterine cancer Thyroid condition Stroke Pertinent Exam Findings alert, oriented x 3, clear to auscultation bilaterally and regular rate & rhythm Pertinent Data Pelvic sono? 04-28-23? normal uterus ?Endometrium ?2.3? cm ?Normal ovaries Recommendations Surgery/Procedure today Other Plans: Plan hysteroscopy, endometrial sampling, possible endometrial polypectomy;? mirena intrauterine device placement May 31, 2023 Coding Level of Care Code Acute Code for Chg Fwd Diagnoses Time Spent (min) 20
[2023-05-31] VITALS (9 sets, daily range): BP systolic 122–160; BP diastolic 87–121; PULSE 82–113; RESP 16; TEMP 36.1–36.2; O2SAT 95–100
[2023-05-31 08:57] LABS: OR HCG Qualitative Urine Negative (Negative)
[2023-05-31] MEDS: scopolamine 1.5 Patch 1 PATCH TRANSDERMA (08:59)
[2023-05-31] MEDS: sodium chloride 0.9% 1,000 ML 30 ML IV (08:59)
--- NOTE | 2023-05-31 09:02 | W.PM.OPSUD ---
Surgery/Procedure H&P Update DATE OF PROCEDURE: May 31, 2023 DATE H&P PERFORMED: 05/29/23 H&P UPDATE INFORMATION: I have reviewed H&P completed within last 30 days, I have examined patient prior to procedure and No changes to prior documentation PREOP DIAGNOSIS: abnormal uterine bleeding PLANNED PROCEDURE: Operation Date: 05/31/23 10:00 Proposed Procedures p Hysteroscopy, endometrial sampling, [ossible endometrial polypectomy with Myosure 30986, Intrauterine device placement 70147,N93.9, Z30.9(Not Applicable) - Sergio Steve MD s Poylpectomy(Not Applicable) - Sergio Steve MD s Placement of Intrauterine Device(Not Applicable) - Sergio Steve MD
--- NOTE | 2023-05-31 10:10 | ANES.PREANE2 ---
Pre-Anesthetic Assessment Height/Weight: Height 1.57 m Weight 144.696 kg Temp Pulse Resp BP Pulse Ox O2 Del Method 97.1 F L 88 16 159/121 100 Room Air 05/31/23 08:49 05/31/23 08:49 05/31/23 08:49 05/31/23 08:49 05/31/23 08:49 05/31/23 09:00 Preop Diagnosis: abnormal uterine bleeding Operation Date: 05/31/23 10:00 Proposed Procedures p Hysteroscopy, endometrial sampling, [ossible endometrial polypectomy with Myosure 30100, Intrauterine device placement 85789,N93.9, Z30.9(Not Applicable) - Sergio Steve MD s Poylpectomy(Not Applicable) - Sergio Steve MD s Placement of Intrauterine Device(Not Applicable) - Sergio Steve MD Familial anesthetic complications: none Was Beta Shayy taken within 24 hours: N/A Was Clonidine taken within 24 hours: N/A Last intake: Intake Last Liquid Date 05/30/23 Last Liquid Time 23:50 Last Solid Date 05/30/23 Last Solid Time 23:50 Social Tobacco (pes) and No alcohol Exam alert, oriented x 3, clear to auscultation bilaterally and regular rate & rhythm Airway Submandibular: within normal limits Cervical ROM: within normal limits Mallampati: Class II Dentition: chipped Pulmonary Asthma GI Gastroesophageal Reflux Disease Metabolic Morbid Ob[place] [facility] [place] Fibromyalgia Neuropsych Anxiety and Depression Anesthetic Plan ASA status: 3 Anesthesia: General Medications/Allergies Home Medications Medication Instructions Recorded Confirmed Last Taken Type budesonide-formoterol HFA 160 2 puff inhalation BID #10.2 grams 09/18/22 05/30/23 05/28/23 Rx mcg-4.5 mcg/actuation aerosol inhaler (Symbicort) diclofenac sodium 1 % topical gel 4 g topical QID #100 grams 10/11/22 05/30/23 05/28/23 Rx (Voltaren Arthritis Pain) vitamin with calcium 1 tab PO DAILY 01/22/23 05/30/23 05/29/23 History no.72-iron 27 mg-folic acid 1 mg tablet (WesTab Plus) albuterol sulfate 90 mcg/actuation 1 puff inhalation QID PRN 04/03/23 05/30/23 05/29/23 Rx aerosol inhaler (ProAir HFA) shortness of breath or wheezing #8.5 grams phentermine 37.5 mg tablet 37.5 mg PO DAILY 30 days #30 tabs 04/05/23 05/30/23 05/23/23 Rx norgestimate 0.25 mg-ethinyl ea PO 04/30/23 05/29/23 Unknown History estradiol 35 mcg tablet (Estarylla) diclofenac sodium 75 mg See Rx Instructions .Route 05/07/23 05/30/23 05/28/23 Rx tablet,delayed release .COMPLEX #60 tabs gabapentin 600 mg tablet See Rx Instructions .Route 05/07/23 05/30/23 05/29/23 Rx .COMPLEX #60 tabs pantoprazole 40 mg tablet,delayed See Rx Instructions .Route 05/07/23 05/30/23 05/29/23 Rx release .COMPLEX #30 tabs gabapentin 600 mg tablet 300 mg PO .HS #30 tabs 05/08/23 05/29/23 Unknown Rx norethindrone 1 mg-ethinyl 1 tab PO DAILY #28 tabs 05/10/23 05/30/23 Unknown Rx estradiol 35 mcg tablet (Pirmella) norethindrone 1 mg-ethinyl 1 tab PO DAILY #84 tabs 05/29/23 05/30/23 05/29/23 Rx estradiol 35 mcg tablet (Pirmella) Allergies Allergy/AdvReac Type Severity Reaction Status Date / Time No Known Allergies Allergy Verified 05/29/23 14:35 Current Medications Generic Name Dose Route Start Last Admin Trade Name Freq PRN Reason Stop Dose Admin Sodium Chloride 1,000 mls @ 30 mls/hr 05/31/23 08:45 05/31/23 08:59 Sodium Chloride 0.9% IV 06/01/23 08:44 30 mls/hr .Q24H JADYN Administration PFS Anesthesia Medical History Anxiety and depression Asthma Has had asthma since she was a child and denies any history of intubations or hospitalizations Elevated blood pressure reading Helicobacter pylori gastritis Iron deficiency anemia secondary to blood loss (chronic) Surgical History H/O esophagogastroduodenoscopy (10/28/21) History of dilatation and curettage 01/20/2021----> hysteroscopy D&C performed by Dr. Murphy at [facility] [place] for abnormal uterine bleeding-pathology showed secretory endometrium without malignancy. Hysteroscopy was complicated by the fact that patient was bleeding with just thick fluffy endometrium identified without obvious lesions Hx of section x 3 08/10/2013-malpresentation of twin gestation with a leg prolapsed-emergency by Dr. Kali Gates at [facility] [place] 07/19/2014---- repeat for twins performed by Dr. Gates at [facility] [place]. 04/06/2016-repeat with the drainage of left ovarian cyst and bilateral tubal ligation performed by Dr. Cannon at [facility] [place] Hx of tubal ligation 04/06/2016-bilateral tubal ligation performed at time of by Dr. Cannon Status post colonoscopy (10/28/21) Status post laparoscopic cholecystectomy Family History Mother Diabetes Hypertension Family/Other Cancer Breast cancer maternal cousin Grandmother Diabetes maternal Denies family history of Colon cancer Ovarian cancer Hyperlipidemia Uterine cancer Thyroid condition Stroke Female Reproductive History Date of last menstrual period: 05/23/23 Data Anesthesia Cardiac Studies: Echocardiogram 05/03/23
--- NOTE | 2023-05-31 13:47 | ANE.PACU2 ---
Inpatient post-anesthesia follow up: Airway intact: Yes Vital signs: Temperature 97 F Pulse Rate 88 Respiratory Rate 16 Blood Pressure 122/90 Pulse Oximetry 100 Oxygen Delivery Me thod Room Air Oxygen Flow Rate Fraction of Inspir ed Oxygen Hydration adequate: Yes Nausea and vomiting: No Pain level: 2 Mental status: Baseline
--- NOTE | 2023-05-31 19:29 | P.OP_ITS ---
Operative Report Date of procedure: May 31, 2023 Pre-op diagnosis: Preop Diagnosis abnormal uterine bleeding Post-op diagnosis: same Post-op findings: normal endometrial cavity No polyps / fibroids + moderate amount of fluffy endometrial tissue Procedure done: hysteroscopy Endometrial sampling with Myosure Curettage of uterus Placement of mirena intrauterine device Implants: mirena intrauterine device Specimens removed/disposition: endometrial tissue Surgeon: Sergio Steve MD Anesthesia: General Estimated blood loss (mL): 5 Complications: none Disposition: PACU Brief History: 27 y.o. with abnormal uterine bleeding Procedure: Informed consent signed. Patient taken to the operating room. Anesthesia induced. Patient was placed in dorsolithotomy position, prepped and draped for hysteroscopy. A bivalve speculum was placed in the vagina. The anterior lip of the cervix was grasped with a sharp-toothed tenaculum. The uterus was sounded to 8 cm. The cervix was serially dilated with Hegar dilators. . A hysteroscope was placed into the endometrial cavity. The endometrial cavity was seen to be normal. There were no polyps or fibroids. There was moderate amount of fluffy appearing endometrial tissue. The Myosure device was used to remove the excess endometri al tissue. The hysteroscope was then removed. Endometrial curettage was done with a sharp curette. Endometrial tissue was sent to pathology. The hysteroscope was re-introduced and the endometrial cavity was seen to be intact. The hysteroscope was removed. The mirena IUD was then prepared, placed into the endometrial cavity and deployed. A 3-4 cm string was left at the cervical os. The sharp-toothed tenaculum was removed. There was no bleeding from the endometrial cavity or cervix. The patient was then placed supine and awakened and taken to the PACU. Postop condition: stable EBL: 5 cc Sponge and instruments counts were normal x 2 Complications: none
== END 2023-05-31 11:51 | disposition home or self-care (01) ==
PROVIDERS: Anesthesiology; PCP Nurse Practitioner Family; Visit Provider Obstetrics & Gynecology
PROC: 0UDB8ZZ Extraction of Endometrium, Via Natural or Artificial Opening Endoscopic (ICD-10-PCS; CPT 58558; principal; 2023-05-31 09:50)
PROC: (CPT 58300; 2023-05-31 09:50)
DX: N93.9 Abnormal uterine and vaginal bleeding, unspecified (principal); Z30.9 Encounter for contraceptive management, unspecified; K21.9 Gastro-esophageal reflux disease without esophagitis; E66.01 Morbid (severe) obesity due to excess calories; Z68.43 Body mass index [BMI] 50.0-59.9, adult; M79.7 Fibromyalgia
CPT/HCPCS: 58300; 58558; 81025; 84703; 88305; J2405; J2704; J3010; J7030

== ENCOUNTER 2023-06-04 11:44 | Oncology outpatient (recurring) (ONCR) | payer MEDICAID, SELFPAY ==
[2023-06-04 11:50] VITALS: BP 127/85; PULSE 69; RESP 18; TEMP 36.7; O2SAT 98
[2023-06-04 12:28] LABS: Basophils % 0.4 %; Eosinophils # 0.3 10^3/uL (0.0-0.8); Eosinophils % 3.8 %; Hematocrit 29.7 % (37.0-47.0); Lymphocytes # 2.6 10^3/uL (0.8-4.8); Lymphocytes % 30.2 %; Mean Corpuscular HGB Conc 30.3 g/dL (30.0-36.0); Mean Corpuscular Hemoglobin 24.3 pg (28.0-34.0); Mean Corpuscular Volume 80.1 fl (81-99); Mean Platelet Volume 9.4 fL (7.4-10.4); Monocytes # 0.6 10^3/uL (0.2-0.9); Monocytes % 7.4 %; Neutrophils # 4.89 10^3/uL (1.8-7.7); Neutrophils % 57.6 %; Nucleated Red Blood Cells % 0 %; Platelet Count 388 10^3/cmm (130-400); Red Blood Count 3.71 10^6/uL (4.1-5.3); Red Cell Distribution Width 20.8 % (12.1-15.1); White Blood Count 8.5 10^3/uL (4.0-10.0)
[2023-06-04 13:11] LABS: Ferritin 42 ng/mL (15-150); Iron 38 ug/dL (37-145); Percent Saturation 10.9 % (20-50); Total Iron Binding Capacity 346 mcg/dl; Unsaturated Iron Binding 308 ug/dL (112-347)
== END 2023-06-14 23:59 | disposition home or self-care (01) ==
PROVIDERS: Nurse Practitioner Family; PCP Nurse Practitioner Family; Visit Provider Specialist
DX: D50.0 Iron deficiency anemia secondary to blood loss (chronic) (principal); R06.09 Other forms of dyspnea
CPT/HCPCS: 36415; 82728; 83540; 83550; 85025

== ENCOUNTER → 2023-06-25 10:43 | Outpatient (BNVA) | payer MEDICAID, SELFPAY | PROVIDERS: PCP Nurse Practitioner Family; Visit Provider Nurse Practitioner Family | DX: R05.9 Cough, unspecified (principal); J06.9 Acute upper respiratory infection, unspecified; E66.01 Morbid (severe) obesity due to excess calories | CPT/HCPCS: 87486; 87581; 87633 ==

== ENCOUNTER → 2023-08-01 11:10 | Outpatient (BNVA) | payer MEDICAID, SELFPAY | PROVIDERS: PCP Nurse Practitioner Family; Visit Provider Nurse Practitioner Family | DX: E66.01 Morbid (severe) obesity due to excess calories (principal); Z68.43 Body mass index [BMI] 50.0-59.9, adult; J06.9 Acute upper respiratory infection, unspecified | CPT/HCPCS: 87486; 87581; 87633 ==

== ENCOUNTER → 2023-09-05 11:29 | Outpatient (BNVA) | payer BC, MEDICAID, SELFPAY | PROVIDERS: PCP Nurse Practitioner Family; Visit Provider Nurse Practitioner Family | DX: Z11.3 Encounter for screening for infections with a predominantly sexual mode of transmission (principal) | CPT/HCPCS: 87491; 87591 ==

== ENCOUNTER → 2023-09-19 11:40 | Outpatient (BNVA) | payer BC, MEDICAID, SELFPAY | PROVIDERS: PCP Nurse Practitioner Family; Visit Provider Nurse Practitioner Family | DX: F41.9 Anxiety disorder, unspecified (principal); F32.A Depression, unspecified; D64.9 Anemia, unspecified; J06.9 Acute upper respiratory infection, unspecified; K21.9 Gastro-esophageal reflux disease without esophagitis; E66.01 Morbid (severe) obesity due to excess calories; Z68.43 Body mass index [BMI] 50.0-59.9, adult; D50.9 Iron deficiency anemia, unspecified; R11.0 Nausea; J02.9 Acute pharyngitis, unspecified; J02.8 Acute pharyngitis due to other specified organisms; B96.89 Other specified bacterial agents as the cause of diseases classified elsewhere | CPT/HCPCS: 80053; 80061; 83550; 84443 ==

== ENCOUNTER 2023-10-11 14:41 | Oncology outpatient (recurring) (ONCR) | payer OTHER, BC, MEDICAID, SELFPAY ==
[2023-10-01 13:00] VITALS: BP 136/89; PULSE 70; RESP 18; TEMP 36.5; O2SAT 100
[2023-10-01] MEDS: sodium chloride 0.9% 250 ML 75 ML IV (13:13)
[2023-10-01] MEDS: ferumoxytol (NON-ESRD) 510 MG in sodium chloride 0.9% (100 ml) 100 ML 351 MG IV (13:13)
[2023-10-01 13:39] VITALS: BP 147/85; PULSE 61; RESP 18; TEMP 36.3; O2SAT 100
[2023-10-11] MEDS: ferumoxytol (NON-ESRD) 510 MG in sodium chloride 0.9% (100 ml) 100 ML 351 MG IV (15:01)
[2023-10-11 15:30] VITALS: BP 117/81; PULSE 71; RESP 16; TEMP 36.1; O2SAT 98
== END 2023-10-14 23:59 | disposition home or self-care (01) ==
PROVIDERS: PCP Nurse Practitioner Family; Visit Provider Internal Medicine Medical Oncology
DX: D50.0 Iron deficiency anemia secondary to blood loss (chronic); Z53.9 Procedure and treatment not carried out, unspecified reason
CPT/HCPCS: 96365; J7050; Q0138

== ENCOUNTER → 2023-10-22 14:25 | Outpatient (BNVA) | payer OTHER, BC, MEDICAID, SELFPAY | PROVIDERS: PCP Nurse Practitioner Family; Visit Provider Nurse Practitioner Family | DX: R05.9 Cough, unspecified (principal); J06.9 Acute upper respiratory infection, unspecified | CPT/HCPCS: 87486; 87581; 87633 ==

== ENCOUNTER 2023-11-03 23:32 | Emergency (ER) | payer OTHER, BC, MEDICAID, SELFPAY ==
[2023-11-03 23:46] VITALS: BP 132/92; PULSE 79; RESP 20; TEMP 36.7; O2SAT 98; BMI 62.0
--- NOTE | 2023-11-04 00:19 | W.ED.ABDPA2 ---
HPI - Abdominal Pain General: Chief Complaint: Abdominal Pain Stated Complaint: ADB Pain Time Seen by Provider: 11/03/23 23:56 Source: patient Mode of arrival: ambulatory Limitations: no limitations History of Present Illness: 28-year-old female states she has been having abdominal pain and pelvic's pain since May. States she had a LEEP procedure does had pain since then states she is follow-up with her mechanism inspector multiple times still had some pain states her pain is currently a 2 out of 10 she denies any bleeding denies any discharge denies any fevers. Associated Symptoms: Denies chills, diarrhea, dysuria, fever(s), nausea and vomiting Review of Systems Const: Denies: fever(s), chills, body aches or change in appetite ENMT: Denies: throat pain or dental pain Card: Denies: chest pain Resp: Denies: dyspnea GI: Reports: abdominal pain; Denies: nausea, vomiting or diarrhea : Denies: dysuria Musc: Denies: neck pain or back pain Skin/Breast: Denies: rash Neuro: Denies: headache(s) PFSH ED PFSH: Medical History GERD (gastroesophageal reflux disease) Iron deficiency anemia secondary to blood loss (chronic) Helicobacter pylori gastritis Anxiety and depression Elevated blood pressure reading Asthma Has had asthma since she was a child and denies any history of intubations or hospitalizations Surgical History Status post colonoscopy (10/28/21) H/O esophagogastroduodenoscopy (10/28/21) Status post laparoscopic cholecystectomy History of dilatation and curettage 01/20/2021----> hysteroscopy D&C performed by Dr. Murphy at [facility] [place] for abnormal uterine bleeding-pathology showed secretory endometrium without malignancy. Hysteroscopy was complicated by the fact that patient was bleeding with just thick fluffy endometrium identified without obvious lesions Hx of section x 3 08/10/2013-malpresentation of twin gestation with a leg prolapsed-emergency by Dr. Kali Gates at [facility] [place] 07/19/2014---- repeat for twins performed by Dr. Gates at [facility] [place]. 04/06/2016-repeat with the drainage of left ovarian cyst and bilateral tubal ligation performed by Dr. Cannon at [facility] [place] Hx of tubal ligation 04/06/2016-bilateral tubal ligation performed at time of by Dr. Cannon Family History Mother Diabetes Hypertension Family/Other Cancer Breast cancer maternal cousin Grandmother Diabetes maternal Denies family history of Colon cancer Ovarian cancer Hyperlipidemia Uterine cancer Thyroid disease Stroke Social History Smoking and tobacco/nicotine status: current some day tobacco/nicotine user e-cigarettes E-cig/vape details: vape every once in a while Physical Exam Const: COMMON NORMALS: no acute distress, patient oriented x3 and healthy appearing HENMT: COMMON NORMALS: normocephalic and atraumatic HEAD & SCALP: normocephalic and atraumatic Eye: COMMON NORMALS: Equal, round and reactive pupils present and EOMs intact bilaterally PUPIL: Yes Equal, round and reactive pupils present Neck/C-Spine: COMMON NORMALS: full ROM and supple Chest: COMMONS NORMALS: normal inspection of the chest Resp: COMMON NORMALS: normal respiratory effort Cardio: COMMON NORMALS: regular rate, regular rhythm and No murmurs present (Cardio) RATE: regular rate RHYTHM: regular rhythm GI: COMMON NORMALS: Normal to inspection, nondistended, normoactive bowel sounds present, Soft to palpation, non-tender and no masses PALPATION: Yes Soft to palpation Extremity: COMMON NORMALS: normal to inspection and full ROM Neuro: COMMON NORMALS: patient oriented x3, moves all extremities and no focal motor deficits Psych: COMMON NORMALS: mental status grossly normal, Normal thought process present and cooperative THOUGHT PROCESS: Normal thought process present Skin: COMMON NORMALS: no rashes or lesions noted and no wounds GENERAL SKIN EXAM: no rashes or lesions noted Course Vital Signs: Vital signs: Vital Signs Temperature 98.0 F 11/03/23 23:46 Pulse Rate 79 11/03/23 23:46 Respiratory Rate 20 H 11/03/23 23:46 Blood Pressure 132/92 11/03/23 23:46 Pulse Oximetry 98 11/03/23 23:46 Oxygen Delivery Me thod Room Air 11/03/23 23:46 MDM - Abdominal Pain Medical Decision Making Patient presents for abdominal pain its been chronic for months she is well-appearing here blood works normal no signs of acute abdomen she is stable for discharge she is follow-up with PCP and return if worsening. Medical Records I reviewed the patient's medical records. Lab Data I reviewed the patient's lab results. 11/04/23 00:54 11/04/23 00:54 Labs/Radiology: Laboratory Results WBC 12.56 10^3/uL (3.29-11.43) H 11/04/23 00:54 RBC 5.23 10^6/uL (3.85-5.65) 11/04/23 00:54 Hgb 12.80 g/dL (11.27-16.99) 11/04/23 00:54 Hct 41.6 % (36-47) 11/04/23 00:54 MCV 79.5 fl (85-98) L 11/04/23 00:54 MCH 24.5 pg (27-33) L 11/04/23 00:54 MCHC 30.8 g/dL (30-55) 11/04/23 00:54 RDW 22.0 % (12.1-15.1) H 11/04/23 00:54 Plt Count 373 10^3/cmm (157-399) 11/04/23 00:54 MPV 9.7 fL (7.4-10.4) 11/04/23 00:54 Neut % (Auto) 64.4 % 11/04/23 00:54 Lymph % (Auto) 26.0 % 11/04/23 00:54 [place] % (Auto) 6.8 % 11/04/23 00:54 Eos % (Auto) 2.0 % 11/04/23 00:54 Baso % (Auto) 0.4 % 11/04/23 00:54 Neut # (Auto) 8.08 10^3/uL (1.8-7.7) H 11/04/23 00:54 Lymph # (Auto) 3.3 10^3/uL (0.8-4.8) 11/04/23 00:54 [place] # (Auto) 0.9 10^3/uL (0.2-0.9) 11/04/23 00:54 Eos # (Auto) 0.3 10^3/uL (0.0-0.8) 11/04/23 00:54 Baso # (Auto) 0.1 10^3/uL (0.0-0.1) 11/04/23 00:54 Nucleated RBC % (auto) 0 % 11/04/23 00:54 Nucleated RBCs # 0.0 /100WBC 11/04/23 00:54 Sodium 136 mmol/L (136-145) 11/04/23 00:54 Potassium 4.3 mmol/L (3.5-5.1) 11/04/23 00:54 Chloride 101 mmol/L (98-107) 11/04/23 00:54 Carbon Dioxide 25 mmol/L (22-29) 11/04/23 00:54 Anion Gap 14.3 (5-19) 11/04/23 00:54 BUN 11 mg/dL (6-20) 11/04/23 00:54 Creatinine 0.5 mg/dL (0.5-0.9) 11/04/23 00:54 Glucose 112 mg/dL (65-115) 11/04/23 00:54 Calcium 9.5 mg/dL (8.5-10.5) 11/04/23 00:54 Total Bilirubin 0.2 mg/dL (0.15-1.2) 11/04/23 00:54 AST 26 U/L (0-32) 11/04/23 00:54 Alkaline Phosphatase 65 U/L (35-105) 11/04/23 00:54 Total Protein 7.8 g/dL (6.6-8.7) 11/04/23 00:54 Albumin 4.5 g/dL (3.5-5.2) 11/04/23 00:54 Globulin 3.3 g/dL (1.3-4.6) 11/04/23 00:54 Lipase 21 U/L (13-60) 11/04/23 00:54 HCG, Qual Negative (Negative) 11/04/23 00:54 No radiology studies performed this visit Discharge Plan Discharge Patient Disposition: Home Clinical Impression: Abdominal pain Qualifiers: Abdominal location: generalized Qualified Code(s): R10.84 - Generalized abdominal pain Condition: Stable Prescriptions: No Action Pirmella 1-35 mg-mcg tablet 1 tab PO DAILY Qty: 84 0RF Rx Instructions: take two tabs daily x 5 days Cetacaine 2 %-2 %-14 % (200 mg/sec) aerosol,spray 1 spray mucous membrane QID Qty: 20 0RF budesonide-formoterol [Symbicort] 160-4.5 mcg/actuation HFA aerosol inhaler 2 puff inhalation BID Qty: 10.2 5RF (DME) pen needle, diabetic [Advocate Pen Needle] 33 gauge x 5/32 needle See Rx Instructions .Route Qty: 100 0RF Rx Instructions: As directed ondansetron 4 mg tablet,disintegrating 4 mg PO Q6H PRN (Reason: nausea and vomiting) Qty: 20 0RF ondansetron 4 mg tablet,disintegrating 4 mg PO Q6H PRN (Reason: nausea and vomiting) Qty: 30 0RF WesTab Plus 27 mg iron- 1 mg tablet 1 tab PO DAILY 90 Days Qty: 90 1RF Rx Instructions: TAKE ONE TABLET BY MOUTH EVERY DAY diclofenac sodium [Voltaren Arthritis Pain] 1 % gel 4 g topical QID Qty: 100 6RF albuterol sulfate [ProAir HFA] 90 mcg/actuation HFA aerosol inhaler 1 puff inhalation QID PRN (Reason: shortness of breath or wheezing) Qty: 8.5 6RF tramadol 50 mg tablet 50 mg PO BID PRN (Reason: pain) Qty: 30 0RF promethazine-DM 6.25-15 mg/5 mL syrup 5 - 10 ml PO Q6H PRN (Reason: cough) Qty: 200 1RF diclofenac sodium 75 mg tablet,delayed release (DR/EC) See Rx Instructions .ROUTE .COMPLEX Qty: 60 1RF Dose Instruction: TAKE ONE TABLET BY MOUTH TWICE DAILY NEEDED FOR PAIN Rx Instructions: TAKE ONE TABLET BY MOUTH TWICE DAILY NEEDED FOR PAIN rizatriptan 10 mg tablet,disintegrating See Rx Instructions .ROUTE .COMPLEX Qty: 18 1RF Dose Instruction: TAKE ONE TABLET BY MOUTH AT ONSET of HEADACHE; if no RELIEF MAY REPEAT 1 tablet AFTER AT least 2 hours; max=3 tablets in 24 hours Rx Instructions: TAKE ONE TABLET BY MOUTH AT ONSET of HEADACHE; if no RELIEF MAY REPEAT 1 tablet AFTER AT least 2 hours; max=3 tablets in 24 hours topiramate 25 mg tablet See Rx Instructions .ROUTE .COMPLEX Qty: 30 2RF Dose Instruction: TAKE ONE TABLET BY MOUTH DAILY Rx Instructions: TAKE ONE TABLET BY MOUTH DAILY pantoprazole 40 mg tablet,delayed release (DR/EC) See Rx Instructions .ROUTE .COMPLEX Qty: 30 2RF Dose Instruction: TAKE ONE TABLET BY MOUTH DAILY Rx Instructions: TAKE ONE TABLET BY MOUTH DAILY gabapentin 300 mg capsule 900 mg PO TID Qty: 270 0RF Discharge Orders: Discharge ED (Routine); Ordered 11/04/23 Ordered By: Mc Mckinney Referrals: Tessie Ashley NP [Primary Care Provider] - 1-3 days Discharge Diet: Advance as tolerated Discharge Activity: Resume usual activity Patient Instructions: Abdominal Pain (ED) Coding Level of Care Code ED Leather Coater for Marlin Barger
[2023-11-04] MEDS: HYDROcodone-acetaminophen 5-325 mg Tablet 1 TAB PO (00:59)
[2023-11-04] MEDS: ondansetron 4 MG Tablet PO (00:59)
[2023-11-04 01:23] LABS: Basophils # 0.1 10^3/uL (0.0-0.1); Basophils % 0.4 %; Eosinophils # 0.3 10^3/uL (0.0-0.8); HCG, Serum Qual Negative (Negative); Hematocrit 41.6 % (36-47); Lymphocytes # 3.3 10^3/uL (0.8-4.8); Mean Corpuscular HGB Conc 30.8 g/dL (30-55); Mean Corpuscular Hemoglobin 24.5 pg (27-33); Mean Corpuscular Volume 79.5 fl (85-98); Mean Platelet Volume 9.7 fL (7.4-10.4); Monocytes # 0.9 10^3/uL (0.2-0.9); Monocytes % 6.8 %; Neutrophils # 8.08 10^3/uL (1.8-7.7); Neutrophils % 64.4 %; Nucleated Red Blood Cells % 0 %; Platelet Count 373 10^3/cmm (157-399); Red Blood Count 5.23 10^6/uL (3.85-5.65); White Blood Count 12.56 10^3/uL (3.29-11.43)
[2023-11-04 01:28] LABS: Albumin Level 4.5 g/dL (3.5-5.2); Alkaline Phosphatase 65 U/L (35-105); Anion Gap 14.3 (5-19); Aspartate Amino Transferase 26 U/L (0-32); Blood Urea Nitrogen 11 mg/dL (6-20); Calcium 9.5 mg/dL (8.5-10.5); Carbon Dioxide 25 mmol/L (22-29); Chloride 101 mmol/L (98-107); Globulin 3.3 g/dL (1.3-4.6); Glomerular Filtration Rate 144.9 mL/min (90-130); Glucose 112 mg/dL (65-115); Lipase 21 U/L (13-60); Osmolality Calculated 282 mOsm/kg (285-295); Potassium 4.3 mmol/L (3.5-5.1); Sodium 136 mmol/L (136-145); Total Bilirubin 0.2 mg/dL (0.15-1.2); Total Protein 7.8 g/dL (6.6-8.7)
[2023-11-04 01:39] LABS: Alanine Aminotransferase 39 U/L (0-33)
[2023-11-04 02:14] VITALS: BP 132/92; PULSE 79; RESP 20; TEMP 36.7; O2SAT 98
== END 2023-11-04 02:14 | disposition home or self-care (01) ==
PROVIDERS: Emergency Provider Emergency Medicine; PCP Nurse Practitioner Family
DX: R10.84 Generalized abdominal pain (principal)
CPT/HCPCS: 80053; 83690; 84703; 85025; 99283; Q0162

== ENCOUNTER 2023-11-08 12:45 | Oncology outpatient (recurring) (ONCR) | payer OTHER, BC, MEDICAID, SELFPAY ==
[2023-11-08 14:06] LABS: Basophils % 0.2 %; Eosinophils # 0.2 10^3/uL (0.0-0.8); Eosinophils % 2.1 %; Lymphocytes # 2.7 10^3/uL (0.8-4.8); Lymphocytes % 24.3 %; Mean Corpuscular HGB Conc 31.3 g/dL (30-55); Mean Corpuscular Hemoglobin 24.9 pg (27-33); Mean Corpuscular Volume 79.5 fl (85-98); Mean Platelet Volume 9.3 fL (7.4-10.4); Monocytes # 0.8 10^3/uL (0.2-0.9); Monocytes % 6.8 %; Neutrophils # 7.29 10^3/uL (1.8-7.7); Neutrophils % 66.2 %; Nucleated Red Blood Cells % 0 %; Platelet Count 322 10^3/cmm (157-399); Red Blood Count 4.78 10^6/uL (3.85-5.65); Red Cell Distribution Width 21.5 % (12.1-15.1); White Blood Count 11.01 10^3/uL (3.29-11.43)
[2023-11-08 14:22] LABS: Ferritin 105 ng/mL (15-150); Iron 46 ug/dL (37-145); Total Iron Binding Capacity 305 mcg/dl; Unsaturated Iron Binding 259 ug/dL (112-347)
== END 2023-11-14 23:59 | disposition home or self-care (01) ==
PROVIDERS: Nurse Practitioner Family; PCP Nurse Practitioner Family; Visit Provider Internal Medicine Medical Oncology
DX: D50.0 Iron deficiency anemia secondary to blood loss (chronic) (principal)
CPT/HCPCS: 36415; 82728; 83540; 83550; 85025

== ENCOUNTER → 2023-11-12 08:45 | Outpatient (BNVA) | payer OTHER, BC, MEDICAID, SELFPAY | PROVIDERS: PCP Nurse Practitioner Family; Referring Provider Nurse Practitioner Family; Visit Provider Psychiatry & Neurology Neurology | DX: R51.9 Headache, unspecified (principal); Z79.899 Other long term (current) drug therapy | CPT/HCPCS: 36415; 84439; 84443; 84481 ==

== ENCOUNTER 2023-11-20 04:27 | Emergency (ER) | payer OTHER, BC, MEDICAID, SELFPAY ==
[2023-11-20 04:35] VITALS: BP 143/94; PULSE 74; RESP 18; TEMP 36.3; O2SAT 97; BMI 59.6
--- NOTE | 2023-11-20 04:45 | CTR_ITS ---
PROCEDURE INFORMATION: Exam: CT Abdomen And Pelvis With Contrast Exam date and time: 11/20/2023 5:01 AM Age: 28 years old Clinical indication: Abdominal pain; Localized; Upper; Prior surgery; Surgery date: 6+ months; Surgery type: Gb/csections, iud, cervix scraped; Additional info: Epigastric pain, n/v TECHNIQUE: Imaging protocol: Computed tomography of the abdomen and pelvis with contrast. Radiation optimization: All CT scans at this facility use at least one of these dose optimization techniques: automated exposure control; mA and/or kV adjustment per patient size (includes targeted exams where dose is matched to clinical indication); or iterative reconstruction. Contrast material: OMNI 350; Contrast volume: 100 ml; Contrast route: INTRAVENOUS (IV); COMPARISON: CT abdomen pelvis wo con [id number] 03/06/2022 3:33 AM RADIATION DOSE METRICS: Total DLP (mGy-cm): 1369 FINDINGS: Liver: Mild hepatomegaly Gallbladder and bile ducts: Surgically absent gallbladder Pancreas: Normal. No ductal dilation. Spleen: Mild splenomegaly Adrenal glands: Nonspecific mild left adrenal nodularity. Kidneys and ureters: Normal. No hydronephrosis. Stomach and bowel: Mild left colonic diverticulosis without diverticulitis . Several loops of proximal jejunum demonstrate mild wall thickening, which can be seen in setting of enteritis. Appendix: No evidence of appendicitis. Intraperitoneal space: Large amount of technical artifact renders visualization of pelvic structures suboptimal. No free fluid identified. Vasculature: Unremarkable. No abdominal aortic aneurysm. Lymph nodes: Several shotty nonspecific midline mesenteric lymph nodes are present. Urinary bladder: Unremarkable as visualized. Reproductive: Esrf-hjdtjxp-vbpk-right ovarian cysts/follicles, measuring up to 36 mm. IUD is in place without obvious complication. Uterus appears boggy; correlate with phase menstrual cycle Bones/joints: Unremarkable. No acute fracture. Soft tissues: Unremarkable. CT/CT abdomen pelvis w con* [id number] IMPRESSION: 1. Several loops of proximal jejunum demonstrate mild wall thickening, which can be seen in setting of enteritis. Clinically correlate. 2. Chronic/incidental findings as above.
[2023-11-20 04:50] LABS: Basophils % 0.3 %; Eosinophils # 0.2 10^3/uL (0.0-0.8); Eosinophils % 2.1 %; Lymphocytes # 3.4 10^3/uL (0.8-4.8); Lymphocytes % 29.9 %; Mean Corpuscular HGB Conc 31.9 g/dL (30-55); Mean Corpuscular Hemoglobin 25.4 pg (27-33); Mean Corpuscular Volume 79.6 fl (85-98); Mean Platelet Volume 9.2 fL (7.4-10.4); Monocytes # 0.9 10^3/uL (0.2-0.9); Neutrophils # 6.66 10^3/uL (1.8-7.7); Neutrophils % 59.4 %; Nucleated Red Blood Cells % 0 %; Platelet Count 357 10^3/cmm (157-399); Red Blood Count 4.65 10^6/uL (3.85-5.65); Red Cell Distribution Width 19.8 % (12.1-15.1); White Blood Count 11.22 10^3/uL (3.29-11.43)
[2023-11-20 04:54] VITALS: BP 143/94; PULSE 63; O2SAT 99
--- NOTE | 2023-11-20 04:59 | W.ED.ABDPA2 ---
Documented by User: Sung Savage DO 11/20/23 05:05 HPI - Abdominal Pain General: Chief Complaint: Abdominal Pain Stated Complaint: abd pain Time Seen by Provider: 11/20/23 04:30 History of Present Illness: Patient presents to the ER complaining of worsening abdominal pain in the epigastric region. This is chronic has been going on for some time. Patient has seen her PCP they referred her to the general surgeon. Patient has a CT scan and an EGD in the works. Patient said today the pain got so bad that she vomited. Patient has a history of GERD and is currently on Protonix. Review of Systems General: Reports: 10 or more systems reviewed and unremarkable except in HPI and below PFSH ED PFSH: Medical History GERD (gastroesophageal reflux disease) Iron deficiency anemia secondary to blood loss (chronic) Helicobacter pylori gastritis Anxiety and depression Elevated blood pressure reading Asthma Has had asthma since she was a child and denies any history of intubations or hospitalizations Surgical History Status post colonoscopy (10/28/21) H/O esophagogastroduodenoscopy (10/28/21) Status post laparoscopic cholecystectomy History of dilatation and curettage 01/20/2021----> hysteroscopy D&C performed by Dr. Murphy at [facility] for abnormal uterine bleeding-pathology showed secretory endometrium without malignancy. Hysteroscopy was complicated by the fact that patient was bleeding with just thick fluffy endometrium identified without obvious lesions Hx of section x 3 08/10/2013-malpresentation of twin gestation with a leg prolapsed-emergency by Dr. Kali Gates at [facility] 07/19/2014---- repeat for twins performed by Dr. Gates at [facility]. 04/06/2016-repeat with the drainage of left ovarian cyst and bilateral tubal ligation performed by Dr. Cannon at [facility] Hx of tubal ligation 04/06/2016-bilateral tubal ligation performed at time of by Dr. Cannon Family History Mother Diabetes Hypertension Family/Other Cancer Breast cancer maternal cousin Grandmother Diabetes maternal Denies family history of Colon cancer Ovarian cancer Hyperlipidemia Uterine cancer Thyroid disease Stroke Social History Smoking and tobacco/nicotine status: current some day tobacco/nicotine user e-cigarettes E-cig/vape details: vape every once in a while Physical Exam Const: COMMON NORMALS: no acute distress, average body habitus, patient oriented x3, no limitations, healthy appearing, alert and well nourished HENMT: COMMON NORMALS: normocephalic, atraumatic, hearing grossly normal bilaterally, external ears normal, Normal external nose present, moist oral mucous membranes and oropharynx normal HEAD & SCALP: normocephalic and atraumatic NOSE: Normal external nose present EXTERNAL EAR: Yes external ears normal Neck/C-Spine: COMMON NORMALS: no JVD Chest: COMMONS NORMALS: normal inspection of the chest and normal palpation of entire chest wall Resp: COMMON NORMALS: normal respiratory effort, No retractions, No use of accessory muscles and clear to auscultation bilaterally AUSCULTATION: clear to auscultation bilaterally Cardio: COMMON NORMALS: no JVD, regular rate, regular rhythm, S1 normal heart sound present, S2 normal heart sound present, No gallops present (Cardio), No clicks present (Cardio), No murmurs present (Cardio) and No rub (Cardio) RATE: regular rate RHYTHM: regular rhythm HEART SOUNDS: S1 normal heart sound present and S2 normal heart sound present GI: COMMON NORMALS: Normal to inspection, nondistended, normoactive bowel sounds present, Soft to palpation, No hepatosplenomegaly present, no masses and no bruits; negative for non-tender PALPATION: Yes Soft to palpation and Yes No hepatosplenomegaly present Neuro: COMMON NORMALS: patient oriented x3 SENSORIUM/ORIENTATION: Yes alert Course Vital Signs: Vital signs: Vital Signs Temperature 97.4 F L 11/20/23 04:35 Pulse Rate 83 11/20/23 06:41 Respiratory Rate 16 11/20/23 06:41 Blood Pressure 152/101 11/20/23 06:41 Pulse Oximetry 95 11/20/23 06:41 Oxygen Delivery Me thod Room Air 11/20/23 05:17 MDM - Abdominal Pain Differential Diagnosis Likely abdominal pain; Unlikely acute appendicitis, calculus of kidney, constipation, diverticulitis, endometriosis, gastroenteritis, pancreatitis or small bowel obstruction Medical Records I reviewed the patient's medical records. Lab Data I reviewed the patient's lab results. 11/20/23 04:44 11/20/23 04:44 Labs/Radiology: Radiology Impressions Abdomen/Pelvis CT 11/20/23 04:45 IMPRESSION: 1. Several loops of proximal jejunum demonstrate mild wall thickening, which can be seen in setting of enteritis. Clinically correlate. 2. Chronic/incidental findings as above. Laboratory Results WBC 11.22 10^3/uL (3.29-11.43) 11/20/23 04:44 RBC 4.65 10^6/uL (3.85-5.65) 11/20/23 04:44 Hgb 11.80 g/dL (11.27-16.99) 11/20/23 04:44 Hct 37.0 % (36-47) 11/20/23 04:44 MCV 79.6 fl (85-98) L 11/20/23 04:44 MCH 25.4 pg (27-33) L 11/20/23 04:44 MCHC 31.9 g/dL (30-55) 11/20/23 04:44 RDW 19.8 % (12.1-15.1) H 11/20/23 04:44 Plt Count 357 10^3/cmm (157-399) 11/20/23 04:44 MPV 9.2 fL (7.4-10.4) 11/20/23 04:44 Neut % (Auto) 59.4 % 11/20/23 04:44 Lymph % (Auto) 29.9 % 11/20/23 04:44 [place] % (Auto) 8.0 % 11/20/23 04:44 Eos % (Auto) 2.1 % 11/20/23 04:44 Baso % (Auto) 0.3 % 11/20/23 04:44 Neut # (Auto) 6.66 10^3/uL (1.8-7.7) 11/20/23 04:44 Lymph # (Auto) 3.4 10^3/uL (0.8-4.8) 11/20/23 04:44 [place] # (Auto) 0.9 10^3/uL (0.2-0.9) 11/20/23 04:44 Eos # (Auto) 0.2 10^3/uL (0.0-0.8) 11/20/23 04:44 Baso # (Auto) 0.0 10^3/uL (0.0-0.1) 11/20/23 04:44 Nucleated RBC % (auto) 0 % 11/20/23 04:44 Nucleated RBCs # 0.0 /100WBC 11/20/23 04:44 Sodium 138 mmol/L (136-145) 11/20/23 04:44 Potassium 3.7 mmol/L (3.5-5.1) 11/20/23 04:44 Chloride 101 mmol/L (98-107) 11/20/23 04:44 Carbon Dioxide 25 mmol/L (22-29) 11/20/23 04:44 Anion Gap 15.7 (5-19) 11/20/23 04:44 BUN 13 mg/dL (6-20) 11/20/23 04:44 Creatinine 0.6 mg/dL (0.5-0.9) 11/20/23 04:44 GFR Calculation 117.4 mL/min (90-130) 11/20/23 04:44 Glucose 103 mg/dL (65-115) 11/20/23 04:44 Calculated Osmolality 286 mOsm/kg (285-295) 11/20/23 04:44 Calcium 9.6 mg/dL (8.5-10.5) 11/20/23 04:44 Total Bilirubin 0.2 mg/dL (0.15-1.2) 11/20/23 04:44 AST 21 U/L (0-32) 11/20/23 04:44 ALT 25 U/L (0-33) 11/20/23 04:44 Alkaline Phosphatase 65 U/L (35-105) 11/20/23 04:44 Total Protein 7.5 g/dL (6.6-8.7) 11/20/23 04:44 Albumin 4.3 g/dL (3.5-5.2) 11/20/23 04:44 Globulin 3.2 g/dL (1.3-4.6) 11/20/23 04:44 Lipase 27 U/L (13-60) 11/20/23 04:44 All radiology interpretation(s) finalized by discharge Discharge Plan Discharge Patient Disposition: Home Clinical Impression: Enteritis Condition: Stable Prescriptions: New ondansetron HCl 4 mg tablet 4 mg PO Q6H PRN (Reason: nausea and vomiting) Qty: 20 0RF No Action budesonide-formoterol [Symbicort] 160-4.5 mcg/actuation HFA aerosol inhaler 2 puff inhalation BID Qty: 10.2 5RF (DME) pen needle, diabetic [Advocate Pen Needle] 33 gauge x 5/32 needle See Rx Instructions .Route Qty: 100 0RF Rx Instructions: As directed ondansetron 4 mg tablet,disintegrating 4 mg PO Q6H PRN (Reason: nausea and vomiting) Qty: 30 0RF pantoprazole 40 mg tablet,delayed release (DR/EC) 40 mg PO BID 30 Days Qty: 60 0RF diclofenac sodium [Voltaren Arthritis Pain] 1 % gel 4 g topical QID Qty: 100 6RF albuterol sulfate [ProAir HFA] 90 mcg/actuation HFA aerosol inhaler 1 puff inhalation QID PRN (Reason: shortness of breath or wheezing) Qty: 8.5 6RF buspirone 10 mg tablet 10 mg PO TID promethazine 25 mg tablet 25 mg PO QID PRN sertraline 50 mg tablet 50 mg PO DAILY phentermine 37.5 mg capsule 37.5 mg PO DAILY Rx Instructions: must administer 30 minutes before or 1-2 hours after breakfast bupropion HCl 150 mg tablet extended release 24 hr 150 mg PO QAM diclofenac sodium 75 mg tablet,delayed release (DR/EC) See Rx Instructions .ROUTE .COMPLEX Qty: 60 1RF Dose Instruction: TAKE ONE TABLET BY MOUTH TWICE DAILY NEEDED FOR PAIN Rx Instructions: TAKE ONE TABLET BY MOUTH TWICE DAILY NEEDED FOR PAIN rizatriptan 10 mg tablet,disintegrating See Rx Instructions .ROUTE .COMPLEX Qty: 18 1RF Dose Instruction: TAKE ONE TABLET BY MOUTH AT ONSET of HEADACHE; if no RELIEF MAY REPEAT 1 tablet AFTER AT least 2 hours; max=3 tablets in 24 hours Rx Instructions: TAKE ONE TABLET BY MOUTH AT ONSET of HEADACHE; if no RELIEF MAY REPEAT 1 tablet AFTER AT least 2 hours; max=3 tablets in 24 hours topiramate 50 mg tablet 50 mg PO DAILY Qty: 60 3RF gabapentin 300 mg capsule 900 mg PO TID Qty: 270 1RF Discharge Orders: Discharge ED (Routine); Ordered 11/20/23 Ordered By: Yo Rosario Referrals: Tessie Ashley FI[employer] CURER [Primary Care Provider] - Patient Instructions: Enteritis (ED), Opioid Safety, Pain Management Activity Restrictions/Additional Instructions: Thank you for choosing [facility] for your healthcare needs today. Please realize this is an emergency room and that we are providing you with a medical screening exam and this may not be complete and all inclusive of all the testing and or work up that you may need to determine your ailment or severity of your illness. It is very important that you follow up as instructed or that you return to the Emergency Department should you have concerns or if your condition changes or worsens in any way. Clear liquid diet for next 24 to 48 hours use antiemetics as needed follow-up with primary care Sign Out Sign Out Data: Patient Sign Out occurred on 11/20/23 at 06:01. Patient's care was discussed, and care was transferred from Sung Savage DO to Yo Rosario DO. Coding Level of Care Code ED Design Teacher for Chg Fwd Documented by User: Yo Rosario DO 11/20/23 07:28 HPI - Abdominal Pain General: Chief Complaint: Abdominal Pain Stated Complaint: abd pain Time Seen by Provider: 11/20/23 04:30 History of Present Illness: Patient presents to the ER complaining of worsening abdominal pain in the epigastric region. This is chronic has been going on for some time. Patient has seen her PCP they referred her to the general surgeon. Patient has a CT scan and an EGD in the works. Patient said today the pain got so bad that she vomited. Patient has a history of GERD and is currently on Protonix. [facility] ED PFS: Medical History GERD (gastroesophageal reflux disease) Iron deficiency anemia secondary to blood loss (chronic) Helicobacter pylori gastritis Anxiety and depression Elevated blood pressure reading Asthma Has had asthma since she was a child and denies any history of intubations or hospitalizations Surgical History Status post colonoscopy (10/28/21) H/O esophagogastroduodenoscopy (10/28/21) Status post laparoscopic cholecystectomy History of dilatation and curettage 01/20/2021----> hysteroscopy D&C performed by Dr. Murphy at [facility] for abnormal uterine bleeding-pathology showed secretory endometrium without malignancy. Hysteroscopy was complicated by the fact that patient was bleeding with just thick fluffy endometrium identified without obvious lesions Hx of section x 3 08/10/2013-malpresentation of twin gestation with a leg prolapsed-emergency by Dr. Kali Gates at [facility] 07/19/2014---- repeat for twins performed by Dr. Gates at [facility]. 04/06/2016-repeat with the drainage of left ovarian cyst and bilateral tubal ligation performed by Dr. Cannon at [facility] Hx of tubal ligation 04/06/2016-bilateral tubal ligation performed at time of by Dr. Cannon Family History Mother Diabetes Hypertension Family/Other Cancer Breast cancer maternal cousin Grandmother Diabetes maternal Denies family history of Colon cancer Ovarian cancer Hyperlipidemia Uterine cancer Thyroid disease Stroke Social History Smoking and tobacco/nicotine status: current some day tobacco/nicotine user e-cigarettes E-cig/vape details: vape every once in a while Course Vital Signs: Vital signs: Vital Signs Temperature 97.4 F L 11/20/23 04:35 Pulse Rate 83 11/20/23 06:41 Respiratory Rate 16 11/20/23 06:41 Blood Pressure 152/101 11/20/23 06:41 Pulse Oximetry 95 11/20/23 06:41 Oxygen Delivery Me thod Room Air 11/20/23 05:17 MDM - Abdominal Pain Medical Decision Making Care assumed at change of shift. CT shows enteritis. Recommend clear liquid diet and advance as tolerated antiemetics as needed follow-up with primary care Lab Data 11/20/23 04:44 11/20/23 04:44 Labs/Radiology: Radiology Impressions Abdomen/Pelvis CT 11/20/23 04:45 IMPRESSION: 1. Several loops of proximal jejunum demonstrate mild wall thickening, which can be seen in setting of enteritis. Clinically correlate. 2. Chronic/incidental findings as above. Laboratory Results WBC 11.22 10^3/uL (3.29-11.43) 11/20/23 04:44 RBC 4.65 10^6/uL (3.85-5.65) 11/20/23 04:44 Hgb 11.80 g/dL (11.27-16.99) 11/20/23 04:44 Hct 37.0 % (36-47) 11/20/23 04:44 MCV 79.6 fl (85-98) L 11/20/23 04:44 MCH 25.4 pg (27-33) L 11/20/23 04:44 MCHC 31.9 g/dL (30-55) 11/20/23 04:44 RDW 19.8 % (12.1-15.1) H 11/20/23 04:44 Plt Count 357 10^3/cmm (157-399) 11/20/23 04:44 MPV 9.2 fL (7.4-10.4) 11/20/23 04:44 Neut % (Auto) 59.4 % 11/20/23 04:44 Lymph % (Auto) 29.9 % 11/20/23 04:44 [place] % (Auto) 8.0 % 11/20/23 04:44 Eos % (Auto) 2.1 % 11/20/23 04:44 Baso % (Auto) 0.3 % 11/20/23 04:44 Neut # (Auto) 6.66 10^3/uL (1.8-7.7) 11/20/23 04:44 Lymph # (Auto) 3.4 10^3/uL (0.8-4.8) 11/20/23 04:44 [place] # (Auto) 0.9 10^3/uL (0.2-0.9) 11/20/23 04:44 Eos # (Auto) 0.2 10^3/uL (0.0-0.8) 11/20/23 04:44 Baso # (Auto) 0.0 10^3/uL (0.0-0.1) 11/20/23 04:44 Nucleated RBC % (auto) 0 % 11/20/23 04:44 Nucleated RBCs # 0.0 /100WBC 11/20/23 04:44 Sodium 138 mmol/L (136-145) 11/20/23 04:44 Potassium 3.7 mmol/L (3.5-5.1) 11/20/23 04:44 Chloride 101 mmol/L (98-107) 11/20/23 04:44 Carbon Dioxide 25 mmol/L (22-29) 11/20/23 04:44 Anion Gap 15.7 (5-19) 11/20/23 04:44 BUN 13 mg/dL (6-20) 11/20/23 04:44 Creatinine 0.6 mg/dL (0.5-0.9) 11/20/23 04:44 GFR Calculation 117.4 mL/min (90-130) 11/20/23 04:44 Glucose 103 mg/dL (65-115) 11/20/23 04:44 Calculated Osmolality 286 mOsm/kg (285-295) 11/20/23 04:44 Calcium 9.6 mg/dL (8.5-10.5) 11/20/23 04:44 Total Bilirubin 0.2 mg/dL (0.15-1.2) 11/20/23 04:44 AST 21 U/L (0-32) 11/20/23 04:44 ALT 25 U/L (0-33) 11/20/23 04:44 Alkaline Phosphatase 65 U/L (35-105) 11/20/23 04:44 Total Protein 7.5 g/dL (6.6-8.7) 11/20/23 04:44 Albumin 4.3 g/dL (3.5-5.2) 11/20/23 04:44 Globulin 3.2 g/dL (1.3-4.6) 11/20/23 04:44 Lipase 27 U/L (13-60) 11/20/23 04:44 Discharge Plan Discharge Patient Disposition: Home Clinical Impression: Enteritis Condition: Stable Prescriptions: New ondansetron HCl 4 mg tablet 4 mg PO Q6H PRN (Reason: nausea and vomiting) Qty: 20 0RF No Action budesonide-formoterol [Symbicort] 160-4.5 mcg/actuation HFA aerosol inhaler 2 puff inhalation BID Qty: 10.2 5RF (DME) pen needle, diabetic [Advocate Pen Needle] 33 gauge x 5/32 needle See Rx Instructions .Route Qty: 100 0RF Rx Instructions: As directed ondansetron 4 mg tablet,disintegrating 4 mg PO Q6H PRN (Reason: nausea and vomiting) Qty: 30 0RF pantoprazole 40 mg tablet,delayed release (DR/EC) 40 mg PO BID 30 Days Qty: 60 0RF diclofenac sodium [Voltaren Arthritis Pain] 1 % gel 4 g topical QID Qty: 100 6RF albuterol sulfate [ProAir HFA] 90 mcg/actuation HFA aerosol inhaler 1 puff inhalation QID PRN (Reason: shortness of breath or wheezing) Qty: 8.5 6RF buspirone 10 mg tablet 10 mg PO TID promethazine 25 mg tablet 25 mg PO QID PRN sertraline 50 mg tablet 50 mg PO DAILY phentermine 37.5 mg capsule 37.5 mg PO DAILY Rx Instructions: must administer 30 minutes before or 1-2 hours after breakfast bupropion HCl 150 mg tablet extended release 24 hr 150 mg PO QAM diclofenac sodium 75 mg tablet,delayed release (DR/EC) See Rx Instructions .ROUTE .COMPLEX Qty: 60 1RF Dose Instruction: TAKE ONE TABLET BY MOUTH TWICE DAILY NEEDED FOR PAIN Rx Instructions: TAKE ONE TABLET BY MOUTH TWICE DAILY NEEDED FOR PAIN rizatriptan 10 mg tablet,disintegrating See Rx Instructions .ROUTE .COMPLEX Qty: 18 1RF Dose Instruction: TAKE ONE TABLET BY MOUTH AT ONSET of HEADACHE; if no RELIEF MAY REPEAT 1 tablet AFTER AT least 2 hours; max=3 tablets in 24 hours Rx Instructions: TAKE ONE TABLET BY MOUTH AT ONSET of HEADACHE; if no RELIEF MAY REPEAT 1 tablet AFTER AT least 2 hours; max=3 tablets in 24 hours topiramate 50 mg tablet 50 mg PO DAILY Qty: 60 3RF gabapentin 300 mg capsule 900 mg PO TID Qty: 270 1RF Discharge Orders: Discharge ED (Routine); Ordered 11/20/23 Ordered By: Yo Rosario Referrals: Tessie Ashley NP [Primary Care Provider] - Patient Instructions: Enteritis (ED), Opioid Safety, Pain Management Activity Restrictions/Additional Instructions: [facility] today. Please realize this is an emergency room and that we are providing you with a medical screening exam and this may not be complete and all inclusive of all the testing and or work up that you may need to determine your ailment or severity of your illness. It is very important that you follow up as instructed or that you return to the Emergency Department should you have concerns or if your condition changes or worsens in any way. Clear liquid diet for next 24 to 48 hours use antiemetics as needed follow-up with primary care Sign Out Sign Out Data: Patient Sign Out occurred on 11/20/23 at 06:01. Patient's care was discussed, and care was transferred from Sung Savage DO to Yo Rosario DO. Coding Level of Care Code ED Design Teacher for Marlin Barger
[2023-11-20 05:06] LABS: Alanine Aminotransferase 25 U/L (0-33); Albumin Level 4.3 g/dL (3.5-5.2); Alkaline Phosphatase 65 U/L (35-105); Anion Gap 15.7 (5-19); Aspartate Amino Transferase 21 U/L (0-32); Blood Urea Nitrogen 13 mg/dL (6-20); Calcium 9.6 mg/dL (8.5-10.5); Carbon Dioxide 25 mmol/L (22-29); Chloride 101 mmol/L (98-107); Globulin 3.2 g/dL (1.3-4.6); Glomerular Filtration Rate 117.4 mL/min (90-130); Glucose 103 mg/dL (65-115); Lipase 27 U/L (13-60); Osmolality Calculated 286 mOsm/kg (285-295); Potassium 3.7 mmol/L (3.5-5.1); Sodium 138 mmol/L (136-145); Total Bilirubin 0.2 mg/dL (0.15-1.2); Total Protein 7.5 g/dL (6.6-8.7)
[2023-11-20] MEDS: iohexol 350 mg/mL 500 mL Btl (per mL) IV (05:09)
[2023-11-20 05:17] VITALS: O2SAT 95
[2023-11-20 06:16] VITALS: BP 137/75; PULSE 77; RESP 22; O2SAT 94
[2023-11-20 06:41] VITALS: BP 152/101; PULSE 83; RESP 16; O2SAT 95
== END 2023-11-20 07:39 | disposition home or self-care (01) ==
PROVIDERS: Emergency Medicine; Emergency Provider Family Medicine; PCP Nurse Practitioner Family
DX: K52.9 Noninfective gastroenteritis and colitis, unspecified (principal); F17.290 Nicotine dependence, other tobacco product, uncomplicated
CPT/HCPCS: 74177; 80053; 83690; 85025; 99285; Q9967

== ENCOUNTER 2024-01-09 10:48 | Outpatient (CLI) | payer BC, MEDICAID, SELFPAY ==
--- NOTE | 2024-01-09 12:02 | MR_ITS ---
WS: [id number] MRI BRAIN WITHOUT CONTRAST HISTORY: R51.9 - Headache, unspecified COMPARISON: None available. TECHNIQUE: Diffusion imaging, multiplanar T1, T2 and FLAIR imaging obtained. Unable to obtain IV access for contrast. No evidence for acute infarct or hemorrhage. Bobby-white matter differentiation is normal. No remote or acute infarcts are volume loss. Ventricles and extra-axial spaces are normal. No inferior displacement of cerebellar tonsils. The sella turcica and pituitary gland are poorly visu alized due to motion. Dural venous sinuses and [place] demonstrate no abnormality on this unenhanced studies. Paranasal sinuses: Clear. Mastoid air cells: Normal. Calvarium and scalp: Intact. IMPRESSION: 1. Unremarkable noncontrast MRI brain. 2. Quality of this examination is limited by motion artifact. Sella turcica and craniocervical junct ion are poorly visualized.
== END 2024-01-09 10:49 | disposition home or self-care (01) ==
LOC: RAD 10:48
PROVIDERS: PCP Nurse Practitioner Family; Visit Provider Psychiatry & Neurology Neurology
DX: R51.9 Headache, unspecified (principal)
CPT/HCPCS: 70551

== ENCOUNTER → 2024-01-24 11:50 | Outpatient (BNVA) | payer BC, MEDICAID, SELFPAY | PROVIDERS: PCP Nurse Practitioner Family; Visit Provider Nurse Practitioner Family | DX: E66.01 Morbid (severe) obesity due to excess calories (principal); Z68.44 Body mass index [BMI] 60.0-69.9, adult; G62.9 Polyneuropathy, unspecified; J45.909 Unspecified asthma, uncomplicated; M54.42 Lumbago with sciatica, left side; M54.41 Lumbago with sciatica, right side; R20.2 Paresthesia of skin; Z68.43 Body mass index [BMI] 50.0-59.9, adult; D50.0 Iron deficiency anemia secondary to blood loss (chronic) | CPT/HCPCS: 80053; 80061; 84443; 85025 ==

== ENCOUNTER 2024-01-30 08:21 | Outpatient (CLI) | payer BC, MEDICAID, SELFPAY ==
--- NOTE | 2024-01-30 08:30 | FL_ITS ---
WS: [id number] LUMBAR PUNCTURE UNDER FLUOROSCOPY: OBTAIN CSF FOR ANALYSIS HISTORY: R51.9 - Headache, unspecified COMPARISON: None available. FLUOROSCOPY TIME: 2min [id number] # of spot films: 1 Procedure, complications, and risk and benefits explained to the patient. Consent was obtained. Recen t laboratory work and medication are reviewed prior to procedure. Skin over the lumbar is cleansed with ChloraPrep and anesthetized with 1% buffered lidocaine. Access into the thecal sac is achieved. CSF is removed in a sterile manner and placed in the sterile tubes. Approximately 15 ml is removed without difficulty. CSF is clear. No complications are encountered. CSF this into the laboratory for analysis as requested. IMPRESSION: 1. Uncomplicated LP for CSF collection. 2. Opening pressure; 8 cm H2O. No change of closing pressure.
[2024-01-30 10:38] LABS: Mononuclear WBC CSF % 67 % (50-90); Polynuclear WBC CSF % 33 % (0-10); Red Blood Cell CSF 0 10^3/uL (0-0); White Blood Cell CSF 3 /uL (0-5)
[2024-01-30 10:43] LABS: Appearance CSF CLEAR (CLEAR); Color CSF COLORLESS (COLORLESS)
[2024-01-30 11:17] LABS: Glucose CSF 61 mg/dL (40-70); Total Protein CSF 22 mg/dL (15-45)
[2024-02-05 05:09] LABS: Angiotensin Convert Enzy CSF 6 U/L (<=15)
[2024-02-06 00:10] LABS: VDRL on CSF NON-REACTIVE
[2024-02-06 10:29] LABS: IgG CSF 1.3 mg/dL (0.8-7.7); IgG Index , CSF 0.27 (<0.70); Immunoglobulin G 1090 mg/dL (600-1640); Synthesis Rate IgG, CSF -8.6 mg/24 h (-9.9 TO +3.3)
== END 2024-01-30 08:22 | disposition home or self-care (01) ==
LOC: RAD 08:21
PROVIDERS: PCP Nurse Practitioner Family; Visit Provider Psychiatry & Neurology Neurology
DX: R51.9 Headache, unspecified (principal); F41.9 Anxiety disorder, unspecified; G93.2 Benign intracranial hypertension
CPT/HCPCS: 62328; 80503; 82040; 82042; 82164; 82784; 82945; 83916; 84157; 86592; 89050

== ENCOUNTER 2024-02-07 12:48 | Oncology outpatient (recurring) (ONCR) | payer BC, MEDICAID, SELFPAY ==
[2024-02-07 13:46] LABS: Ferritin 30 ng/mL (15-150); Iron 91 ug/dL (37-145); Percent Saturation 29.7 % (20-50); Total Iron Binding Capacity 306 mcg/dl; Unsaturated Iron Binding 215 ug/dL (112-347)
[2024-02-12 13:09] LABS: Soluble Transferrin Receptor 1.25 mg/L (0.76-1.76)
== END 2024-02-12 23:59 | disposition home or self-care (01) ==
PROVIDERS: Internal Medicine; PCP Nurse Practitioner Family; Visit Provider Internal Medicine Medical Oncology
DX: D50.0 Iron deficiency anemia secondary to blood loss (chronic) (principal)
CPT/HCPCS: 36415; 82728; 83540; 83550; 84238

== ENCOUNTER 2024-06-03 11:36 | Oncology outpatient (recurring) (ONCR) | payer BC, MEDICAID, SELFPAY ==
[2024-06-03 12:07] LABS: Basophils % 0.3 %; Eosinophils # 0.2 10^3/uL (0.0-0.8); Eosinophils % 1.7 %; Hematocrit 43.8 % (36-47); Lymphocytes # 2.9 10^3/uL (0.8-4.8); Lymphocytes % 26.3 %; Mean Corpuscular HGB Conc 31.5 g/dL (30-55); Mean Corpuscular Hemoglobin 27.9 pg (27-33); Mean Corpuscular Volume 88.7 fl (85-98); Mean Platelet Volume 9.6 fL (7.4-10.4); Monocytes # 0.7 10^3/uL (0.2-0.9); Monocytes % 6.7 %; Neutrophils # 7.19 10^3/uL (1.8-7.7); Neutrophils % 64.6 %; Nucleated Red Blood Cells % 0 %; Platelet Count 372 10^3/cmm (157-399); Red Blood Count 4.94 10^6/uL (3.85-5.65); Red Cell Distribution Width 13.7 % (12.1-15.1); White Blood Count 11.11 10^3/uL (3.29-11.43)
[2024-06-03 12:30] LABS: Alanine Aminotransferase 21 U/L (0-33); Albumin Level 4.2 g/dL (3.5-5.2); Alkaline Phosphatase 64 U/L (35-105); Aspartate Amino Transferase 17 U/L (0-32); Blood Urea Nitrogen 8 mg/dL (6-20); Calcium 8.9 mg/dL (8.5-10.5); Carbon Dioxide 23 mmol/L (22-29); Chloride 107 mmol/L (98-107); Ferritin 59 ng/mL (15-150); Glomerular Filtration Rate 144.9 mL/min (90-130); Glucose 91 mg/dL (65-115); Iron 65 ug/dL (37-145); Osmolality Calculated 292 mOsm/kg (285-295); Percent Saturation 21.8 % (20-50); Sodium 142 mmol/L (136-145); Total Bilirubin 0.4 mg/dL (0.15-1.2); Total Iron Binding Capacity 298 mcg/dl; Total Protein 7.2 g/dL (6.6-8.7); Unsaturated Iron Binding 233 ug/dL (112-347)
== END 2024-06-14 23:59 | disposition home or self-care (01) ==
PROVIDERS: Nurse Practitioner Family; PCP Nurse Practitioner Family; Visit Provider Internal Medicine Medical Oncology
DX: D50.0 Iron deficiency anemia secondary to blood loss (chronic) (principal); R06.09 Other forms of dyspnea; Z79.899 Other long term (current) drug therapy
CPT/HCPCS: 36415; 80053; 82728; 83540; 83550; 85025

== ENCOUNTER 2024-09-03 14:37 | Oncology outpatient (recurring) (ONCR) | payer BC, MEDICAID, SELFPAY ==
[2024-09-03 17:05] LABS: Basophils % 0.2 %; Eosinophils # 0.3 10^3/uL (0.0-0.8); Eosinophils % 1.8 %; Hematocrit 41.9 % (36-47); Lymphocytes # 3.3 10^3/uL (0.8-4.8); Lymphocytes % 22.5 %; Mean Corpuscular HGB Conc 31.7 g/dL (30-55); Mean Corpuscular Hemoglobin 27.4 pg (27-33); Mean Corpuscular Volume 86.2 fl (85-98); Mean Platelet Volume 9.8 fL (7.4-10.4); Monocytes # 0.8 10^3/uL (0.2-0.9); Monocytes % 5.4 %; Neutrophils % 69.7 %; Nucleated Red Blood Cells % 0 %; Platelet Count 398 10^3/cmm (157-399); Red Blood Count 4.86 10^6/uL (3.85-5.65); Red Cell Distribution Width 13.5 % (12.1-15.1); Reticulocyte % 2.1 % (0.5-2.0); White Blood Count 14.49 10^3/uL (3.29-11.43)
[2024-09-03 17:19] LABS: Alanine Aminotransferase 21 U/L (0-33); Albumin Level 4.5 g/dL (3.5-5.2); Alkaline Phosphatase 68 U/L (35-105); Aspartate Amino Transferase 20 U/L (0-32); Blood Urea Nitrogen 10 mg/dL (6-20); Calcium 9.4 mg/dL (8.5-10.5); Carbon Dioxide 25 mmol/L (22-29); Chloride 102 mmol/L (98-107); Creatinine Clr Calc Pharmacy 197.7906; Ferritin 89 ng/mL (15-150); Globulin 3.3 g/dL (1.3-4.6); Glomerular Filtration Rate 117.4 mL/min (90-130); Glucose 85 mg/dL (65-115); Iron 39 ug/dL (37-145); Lactate Dehydrogenase 182 U/L (135-214); Osmolality Calculated 284 mOsm/kg (285-295); Percent Saturation 11.2 % (20-50); Sodium 138 mmol/L (136-145); Total Bilirubin 0.3 mg/dL (0.15-1.2); Total Iron Binding Capacity 346 mcg/dl; Total Protein 7.8 g/dL (6.6-8.7); Unsaturated Iron Binding 307 ug/dL (112-347)
== END 2024-09-13 23:59 | disposition home or self-care (01) ==
PROVIDERS: Internal Medicine; PCP Nurse Practitioner Family; Visit Provider Internal Medicine Medical Oncology
DX: D50.0 Iron deficiency anemia secondary to blood loss (chronic) (principal)
CPT/HCPCS: 36415; 80053; 82728; 83010; 83540; 83550; 83615; 85025; 85045

== ENCOUNTER → 2024-09-04 14:22 | Outpatient (BNVA) | payer BC, MEDICAID, SELFPAY | PROVIDERS: Visit Provider Nurse Practitioner Family | DX: J02.9 Acute pharyngitis, unspecified (principal); J06.9 Acute upper respiratory infection, unspecified; J45.909 Unspecified asthma, uncomplicated | CPT/HCPCS: 87071; 87880 ==

== ENCOUNTER 2024-11-28 22:28 | Emergency (ER) | payer BC, MEDICAID, SELFPAY ==
--- NOTE | 2024-11-28 22:31 | XRR_ITS ---
PROCEDURE INFORMATION: Exam: XR Chest Exam date and time: 11/28/2024 11:37 PM Age: 29 years old Clinical indication: Chest pressure; Prior surgery; Surgery date: 6+ months; Surgery type: Gb; C/O chest pain TECHNIQUE: Imaging protocol: Radiologic exam of the chest. Views: 1 view. COMPARISON: CR XR chest 2V* [id number] 07/26/2022 12:32 PM FINDINGS: Lungs: No pulmonary consolidation Pleural spaces: No pleural effusion or pneumothorax. Heart/Mediastinum: The heart is magnified. Bones/joints: No acute osseous abnormalities are seen. XR/XR chest 1V portable [id number] IMPRESSION: No acute cardiopulmonary disease.
--- NOTE | 2024-11-28 22:31 | ECG_ITS ---
[facility] Date: 2024-11-28 Pat Name: Sacha Metz Department: Room: Gender: Female Medical Pathology Teacher: : 1995 Requested By: Mela Giordano Order Number: [id number] Roman MD: SHA PEREZ Measurements Intervals [place] Rate: 93 P: 43 SC: 139 QRS: 21 QRSD: 89 T: 19 QT: 336 QTc: 418 Interpretive Statements SINUS RHYTHM WITH SINUS ARRHYTHMIA Compared to ECG 01/22/2023 16:24:03 No significant changes Electronically Signed On 11-29-2024 19:32:29 RN HEMODIALYSIS CHARGE by SHA EPREZ [email or web address]
[2024-11-28 22:51] VITALS: BP 122/88; PULSE 85; RESP 16; TEMP 36.6; O2SAT 99; BMI 61.6
[2024-11-28 23:29] LABS: Basophils # 0.1 10^3/uL (0.0-0.1); Basophils % 0.4 %; Eosinophils # 0.2 10^3/uL (0.0-0.8); Eosinophils % 1.5 %; Hematocrit 37.3 % (36-47); Lymphocytes # 3.9 10^3/uL (0.8-4.8); Lymphocytes % 27.7 %; Mean Corpuscular HGB Conc 30.6 g/dL (30-55); Mean Corpuscular Volume 88.2 fl (85-98); Mean Platelet Volume 9.6 fL (7.4-10.4); Monocytes # 0.8 10^3/uL (0.2-0.9); Monocytes % 5.8 %; Neutrophils # 8.93 10^3/uL (1.8-7.7); Neutrophils % 64.1 %; Nucleated Red Blood Cells % 0 %; Platelet Count 407 10^3/cmm (157-399); Red Blood Count 4.23 10^6/uL (3.85-5.65); White Blood Count 13.93 10^3/uL (3.29-11.43)
[2024-11-28 23:48] LABS: Alanine Aminotransferase 18 U/L (0-33); Alkaline Phosphatase 70 U/L (35-105); Anion Gap 19.2 (5-19); Aspartate Amino Transferase 16 U/L (0-32); Blood Urea Nitrogen 12 mg/dL (6-20); Calcium 9.5 mg/dL (8.5-10.5); Carbon Dioxide 21 mmol/L (22-29); Chloride 100 mmol/L (98-107); Creatinine Clr Calc Pharmacy 195.6039; Globulin 3.7 g/dL (1.3-4.6); Glomerular Filtration Rate 116.6 mL/min (90-130); Glucose 100 mg/dL (65-115); Osmolality Calculated 282 mOsm/kg (285-295); Potassium 4.2 mmol/L (3.5-5.1); Sodium 136 mmol/L (136-145); Total Bilirubin 0.2 mg/dL (0.15-1.2); Total Protein 7.7 g/dL (6.6-8.7)
--- NOTE | 2024-11-29 00:28 | ED_ITS ---
HPI - Chest Pain 2 General: Chief Complaint: Chest Pain Stated Complaint: CP Dizzy light headed donated blood Time Seen by Provider: 11/28/24 23:28 History of Present Illness: This patient is a 29-year-old white female who presents to the emergency department with dizziness and some chest discomfort. Patient states she donated blood 3 days ago. She does have a history of iron deficiency. She was concerned maybe her hemoglobin is too low at this point. She has not had a fever. Related Data Home Medications ?Medication ?Instructions ?Recorded ?Confirmed pantoprazole 40 mg tablet,delayed mg PO 09/03/2409/04 release Previous Rx's ?Medication ?Instructions ?Recorded gabapentin 800 mg tablet 800 mg PO TID 30 days #90 ta bs 06/18/24 ondansetron HCl 8 mg tablet 8 mg PO Q8H PRN nausea and 11/04/24 vomiting #10 tabs Allergies Allergy/AdvReac Type Severity Reaction Status Date / Time No Known Allergies Allergy Verified 11/04/24 11:30 Review of Systems 2 General: Reports: 10 or more systems reviewed and unremarkable except in HPI and below Card: Reports: chest pain Neuro: Reports: dizziness PFS ED 2 PFSH: Medical History GERD (gastroesophageal reflux disease) Iron deficiency anemia secondary to blood loss (chronic) Helicobacter pylori gastritis Anxiety and depression Elevated blood pressure reading Asthma Has had asthma since she was a child and denies any history of intubations or hospitalizations Surgical History Status post colonoscopy (10/28/21) H/O esophagogastroduodenoscopy (10/28/21) Status post laparoscopic cholecystectomy History of dilatation and curettage 01/20/2021----> hysteroscopy D&C performed by Dr. Murphy at [facility] for abnormal uterine bleeding-pathology showed secretory endometrium without malignancy. Hysteroscopy was complicated by the fact that patient was bleeding with just thick fluffy endometrium identified without obvious lesions Hx of section x 3 08/10/2013-malpresentation of twin gestation with a leg prolapsed-emergency by Dr. Kali Gates at [facility] 07/19/2014---- repeat for twins performed by Dr. Gates at [facility]. 04/06/2016-repeat with the drainage of left ovarian cyst and bilateral tubal ligation performed by Dr. Cannon at [facility] Hx of tubal ligation 04/06/2016-bilateral tubal ligation performed at time of by Dr. Cannon Family History Mother Diabetes Hypertension Family/Other Cancer Breast cancer maternal cousin Grandmother Diabetes maternal Denies family history of Colon cancer Ovarian cancer Hyperlipidemia Uterine cancer Thyroid disease Stroke Social History Smoking and tobacco/nicotine status: never used tobacco/nicotine Physical Exam 2 Const: COMMON NORMALS: no acute distress, patient oriented x3 and no limitations GENERAL APPEARANCE: cooperative and comfortable HENMT: COMMON NORMALS: normocephalic, atraumatic, Normal nasal mucous membranes and turbinates present, moist oral mucous membranes and oropharynx normal HEAD & SCALP: normal to inspection, normocephalic and atraumatic F AVANI & SINUS: normal facial exam NOSE: Normal nasal mucous membranes and turbinates present Eye: COMMON NORMALS: Equal, round and reactive pupils present, EOMs intact bilaterally and conjunctivae normal GENERAL EYE: appearance normal, both eyes and all related structures CONJUNCTIVA: Yes conjunctivae normal PUPIL: Yes Equal, round and reactive pupils present Neck/C-Spine: COMMON NORMALS: supple and no JVD Chest: COMMONS NORMALS: normal inspection of the chest Resp: COMMON NORMALS: normal respiratory effort and clear to auscultation bilaterally AUSCULTATION: clear to auscultation bilaterally Cardio: COMMON NORMALS: no JVD, regular rate, regular rhythm, No gallops present (Cardio), No murmurs present (Cardio) and No rub (Cardio) RATE: r egular rate RHYTHM: regular rhythm GI: COMMON NORMALS: Normal to inspection, nondistended, normoactive bowel sounds present, Soft to palpation and non-tender AUSCULTATION: Yes normoactive bowel sounds PALPATION: Yes Soft to palpation : COMMON NORMALS: Yes no CVA tenderness BLADDER/KIDNEY EXAM: Yes no CVA tenderness Back/Pelvis: COMMON NORMALS: no CVA tenderness and thoracic and lumbar spine normal to inspection Extremity: COMMON NORMALS: normal to inspection Neuro: COMMON NORMALS: patient oriented x3 and CN's II-XII intact bilaterally Psych: COMMON NORMALS: mental status grossly normal, Normal thought process present and cooperative THOUGHT PROCESS: Normal thought process present Skin: COMMON NORMALS: no rashes or lesions noted, turgor normal and no jaundice GENERAL SKIN EXAM: no rashes or lesions noted and turgor normal Course 2 Vital Signs: Vital signs: Vital Signs Temperature 97.9 F 11/28/24 22:51 Pulse Rate 85 11/28/24 22:51 Respiratory Rate 16 11/28/24 22:51 Blood Pressure 122/88 11/28/24 22:51 Pulse Oximetry 99 11/28/24 22:51 Oxygen Delivery Me thod Room Air 11/28/24 22:51 MDM - Chest Pain Medical Decision Making EKG revealed sinus rhythm with no ST segment abnormalities. Chest x-ray was normal. CBC revealed a white blood cell count of 13.9. Hemoglobin was 11.4. CMP was normal. Patient was reassured. She was discharged in stable condition instructed to follow-up with her primary care physician as needed. Lab Data 11/28/24 23:14 11/28/24 23:14 Radiology Impressions Chest X-Ray 11/28/24 22:31 IMPRESSION: No acute cardiopulmonary disease. Laboratory Results WBC 13.93 10^3/uL (3.29-11.43) H 11/28/24 23:14 RBC 4.23 10^6/uL (3.85-5.65) 11/28/24 23:14 Hgb 11.40 g/dL (11.27-16.99) 11/28/24 23:14 Hct 37.3 % (36-47) 11/28/24 23:14 MCV 88.2 fl (85-98) 11/28/24 23:14 MCH 27.0 pg (27-33) 11/28/24 23:14 MCHC 30.6 g/dL (30-55) 11/28/24 23:14 RDW 14.0 % (12.1-15.1) 11/28/24 23:14 Plt Count 407 10^3/cmm (157-399) H 11/28/24 23:14 MPV 9.6 fL (7.4-10.4) 11/28/24 23:14 Neut % (Auto) 64.1 % 11/28/24 23:14 Lymph % (Auto) 27.7 % 11/28/24 23:14 [place] % (Auto) 5.8 % 11/28/24 23:14 Eos % (Auto) 1.5 % 11/28/24 23:14 Baso % (Auto) 0.4 % 11/28/24 23:14 Neut # (Auto) 8.93 10^3/uL (1.8-7.7) H 11/28/24 23:14 Lymph # (Auto) 3.9 10^3/uL (0.8-4.8) 11/28/24 23:14 [place] # (Auto) 0.8 10^3/uL (0.2-0.9) 11/28/24 23:14 Eos # (Auto) 0.2 10^3/uL (0.0-0.8) 11/28/24 23:14 Baso # (Auto) 0.1 10^3/uL (0.0-0.1) 11/28/24 23:14 Nucleated RBC % (auto) 0 % 11/28/24 23:14 Nucleated RBCs # 0.0 /100WBC 11/28/24 23:14 Sodium 136 mmol/L (136-145) 11/28/24 23:14 Potassium 4.2 mmol/L (3.5-5.1) 11/28/24 23:14 Chloride 100 mmol/L (98-107) 11/28/24 23:14 Carbon Dioxide 21 mmol/L (22-29) L 11/28/24 23:14 Anion Gap 19.2 (5-19) H 11/28/24 23:14 BUN 12 mg/dL (6-20) 11/28/24 23:14 Creatinine 0.6 mg/dL (0.5-0.9) 11/28/24 23:14 GFR Calculation 116.6 mL/min (90-130) 11/28/24 23:14 Glucose 100 mg/dL (65-115) 11/28/24 23:14 Calculated Osmolality 282 mOsm/kg (285-295) L 11/28/24 23:14 Calcium 9.5 mg/dL (8.5-10.5) 11/28/24 23:14 Total Bilirubin 0.2 mg/dL (0.15-1.2) 11/28/24 23:14 AST 16 U/L (0-32) 11/28/24 23:14 ALT 18 U/L (0-33) 11/28/24 23:14 Alkaline Phosphatase 70 U/L (35-105) 11/28/24 23:14 Total Protein 7.7 g/dL (6.6-8.7) 11/28/24 23:14 Albumin 4.0 g/dL (3.5-5.2) 11/28/24 23:14 Globulin 3.7 g/dL (1.3-4.6) 11/28/24 23:14 All radiology interpretation(s) finalized by discharge Discharge Plan Discharge Patient Disposition: Home Clinical Impression: Dizziness Condition: Stable Prescriptions: No Action pantoprazole 40 mg tablet,delayed release (DR/EC) PO gabapentin 800 mg tablet 800 mg PO TID 30 Days Qty: 90 5RF ondansetron HCl 8 mg tablet 8 mg PO Q8H PRN (Reason: nausea and vomiting) Qty: 10 0RF Discharge Orders: Discharge ED (Routine); Ordered 11/29/24 Ordered By: Rupesh Magallanes Referrals: Karyna Shell FNP [Primary Care Provider] - Patient Instructions: Dizziness Print Language: Portuguese Coding Level of Care Code ED 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
[2024-11-29 00:52] VITALS: BP 127/82; PULSE 73; O2SAT 98
== END 2024-11-29 00:32 | disposition home or self-care (01) ==
PROVIDERS: Physician Assistant; Emergency Provider Emergency Medicine; PCP Nurse Practitioner Family
DX: R42 Dizziness and giddiness (principal)
CPT/HCPCS: 36415; 71045; 80053; 85025; 93005; 99285

== ENCOUNTER → 2025-02-18 15:25 | Outpatient (BNVA) | payer BC, MEDICAID, SELFPAY | PROVIDERS: PCP Nurse Practitioner Family; Visit Provider Nurse Practitioner Family | DX: E66.01 Morbid (severe) obesity due to excess calories (principal); K21.9 Gastro-esophageal reflux disease without esophagitis; E61.1 Iron deficiency; M54.50 Low back pain, unspecified; G89.29 Other chronic pain; G62.9 Polyneuropathy, unspecified; M79.89 Other specified soft tissue disorders | CPT/HCPCS: 80053; 80061; 82728; 83540; 84443; 85025 ==

== ENCOUNTER 2025-02-20 09:27 | Outpatient (CLI) | payer BC, MEDICAID, SELFPAY ==
--- NOTE | 2025-02-20 09:31 | XR_ITS ---
WS: [id number] XR lumbar spine 2-3V* [id number] REASON FOR EXAM: M54.50 - Low back pain, unspecified FINDINGS: Moderate levoscoliosis of the lumbar spine with relatively normal lordosis. No significant vertebral body abnormality. Mild narrowing of the L1-L2 disc space with mild to moderate endplate sclerosis and osteophytosis. No spondylolysis. No significant spondylolisthesis. XR/XR lumbar spine 2-3V* [id number] IMPRESSION: Moderate rotatory levoscoliosis and mild to moderate degenerative spondylosis a t L1-L2.
== END 2025-02-20 09:28 | disposition home or self-care (01) ==
LOC: RAD 09:29
PROVIDERS: PCP Nurse Practitioner Family; Visit Provider Nurse Practitioner Family
DX: M47.896 Other spondylosis, lumbar region (principal); G89.29 Other chronic pain; E66.01 Morbid (severe) obesity due to excess calories; K21.9 Gastro-esophageal reflux disease without esophagitis; E61.1 Iron deficiency; M41.86 Other forms of scoliosis, lumbar region; M25.78 Osteophyte, vertebrae
CPT/HCPCS: 72100

== ENCOUNTER 2025-03-12 13:30 | Oncology outpatient (recurring) (ONCR) | payer BC, MEDICAID, SELFPAY ==
--- NOTE | 2025-02-27 07:15 | MR_ITS ---
WS: [id number] MRI LUMBAR SPINE NONCONTRAST TECHNIQUE: Sagittal T1, T2 and STIR imaging. Axial T1 and T2 imaging. CLINICAL INFORMATION: M41.86 - Other forms of scoliosis, lumbar region FINDINGS: Mild lumbar curve. No acute compression. No high-grade central canal stenosis. Diffuse homogeneous replacement of the normal fatty bone marrow signal throughout the visualized spine is nonspecific. This can be seen with cigarette smoking, chronic anemias, diabetes, and infiltrative marrow disorders. Recommend recommend correlation with clinical history and laboratory markers L1-L2: Mild annular bulging. Mild facet arthropathy. Spinal canal and foramen are patent. L2-L3: No significant disc bulging. Mild facet arthropathy. L3-L4: Mild annular bulging. Mild LEFT foraminal narrowing. Spinal canal is patent. Mild facet arthropathy. L4-L5: Mild annular bulging. Slight narrowing of the subarticular recess. Mild LEFT foraminal narrowing. Mild facet arthropathy. L5-S1: Mild annular bulging. Mild facet arthropathy. Mild LEFT foraminal narrowing. Visualized pelvic bony structures: Normal. Paravertebral soft tissues: Normal. MR/MR lumbar spine wo con* [id number] IMPRESSION: 1. Mild lumbar curve. No acute compression. No high-grade central canal stenos is. 2. Tiny LEFT foraminal protrusion L3-4 with mild LEFT foraminal narrowing. 3. Mild narrowing of the subarticular recess L4-5 with mild LEFT foraminal ruthann rowing. 4. Mild LEFT L5-S1 bony foraminal narrowing. 5. Mild facet arthropathy L3-L5. 6. Diffuse homogeneous replacement of normal fatty bone marrow signal describe d above.
[2025-03-03 11:24] LABS: Basophils % 0.2 %; Eosinophils # 0.2 10^3/uL (0.0-0.8); Eosinophils % 1.4 %; Hematocrit 40.5 % (36-47); Lymphocytes # 2.8 10^3/uL (0.8-4.8); Lymphocytes % 26.3 %; Mean Corpuscular HGB Conc 32.6 g/dL (30-55); Mean Corpuscular Hemoglobin 26.3 pg (27-33); Mean Corpuscular Volume 80.7 fl (85-98); Mean Platelet Volume 9.7 fL (7.4-10.4); Monocytes # 0.8 10^3/uL (0.2-0.9); Monocytes % 7.6 %; Neutrophils # 6.94 10^3/uL (1.8-7.7); Neutrophils % 64.2 %; Nucleated Red Blood Cells % 0 %; Platelet Count 424 10^3/cmm (157-399); Red Blood Count 5.02 10^6/uL (3.85-5.65); Red Cell Distribution Width 13.3 % (12.1-15.1)
[2025-03-03 11:27] LABS: Reticulocyte % 1.7 % (0.5-2.0)
[2025-03-03 11:41] LABS: Alanine Aminotransferase 28 U/L (0-33); Albumin Level 4.4 g/dL (3.5-5.2); Alkaline Phosphatase 72 U/L (35-105); Anion Gap 16.4 (5-19); Aspartate Amino Transferase 22 U/L (0-32); Blood Urea Nitrogen 14 mg/dL (6-20); Calcium 9.3 mg/dL (8.5-10.5); Carbon Dioxide 25 mmol/L (22-29); Chloride 100 mmol/L (98-107); Creatinine Clr Calc Pharmacy 192.1012; Ferritin 82 ng/mL (15-150); Globulin 3.2 g/dL (1.3-4.6); Glomerular Filtration Rate 116.6 mL/min (90-130); Glucose 96 mg/dL (65-115); Iron 63 ug/dL (37-145); Lactate Dehydrogenase 202 U/L (135-214); Osmolality Calculated 286 mOsm/kg (285-295); Percent Saturation 18.6 % (20-50); Potassium 3.4 mmol/L (3.5-5.1); Sodium 138 mmol/L (136-145); Total Bilirubin 0.4 mg/dL (0.15-1.2); Total Iron Binding Capacity 337 mcg/dl; Total Protein 7.6 g/dL (6.6-8.7); Unsaturated Iron Binding 274 ug/dL (112-347)
[2025-03-06] MEDS: iron sucrose 200 MG in sodium chloride 0.9% (100 ml) 100 ML IV (08:07)
[2025-03-06 08:47] VITALS: BP 124/87; PULSE 66; RESP 17; TEMP 36.5; O2SAT 93
[2025-03-10] MEDS: iron sucrose 200 MG in sodium chloride 0.9% (100 ml) 100 ML IV (13:12)
[2025-03-10 13:55] VITALS: BP 124/78; PULSE 78; RESP 18; TEMP 36.6; O2SAT 98
[2025-03-12] MEDS: iron sucrose 200 MG in sodium chloride 0.9% (100 ml) 100 ML 220 MG IV (14:52)
== END 2025-03-14 23:59 | disposition home or self-care (01) ==
PROVIDERS: Internal Medicine; PCP Nurse Practitioner Family; Visit Provider Nurse Practitioner Family
DX: Z53.9 Procedure and treatment not carried out, unspecified reason; D50.0 Iron deficiency anemia secondary to blood loss (chronic); Z79.899 Other long term (current) drug therapy
CPT/HCPCS: 36415; 72148; 80053; 82728; 83010; 83540; 83550; 83615; 85025; 85045; 96365; J1756

== ENCOUNTER → 2025-04-09 12:32 | Outpatient (BNVA) | payer BC, MEDICAID, SELFPAY | PROVIDERS: PCP Nurse Practitioner Family; Visit Provider Orthopaedic Surgery | DX: M54.9 Dorsalgia, unspecified (principal); M54.42 Lumbago with sciatica, left side; M54.41 Lumbago with sciatica, right side; G89.29 Other chronic pain | CPT/HCPCS: 72110 ==

== ENCOUNTER 2025-04-09 14:35 | Oncology outpatient (recurring) (ONCR) | payer BC, MEDICAID, SELFPAY ==
[2025-04-01] MEDS: iron sucrose 200 MG in sodium chloride 0.9% (100 ml) 100 ML 300 MG IV (10:39)
[2025-04-01 11:20] VITALS: BP 132/80; PULSE 73; RESP 18; TEMP 36.6; O2SAT 96
[2025-04-09 14:48] VITALS: BP 141/84; PULSE 75; RESP 18; TEMP 36.6; O2SAT 97
[2025-04-09] MEDS: iron sucrose 200 MG in sodium chloride 0.9% (100 ml) 100 ML 220 MG IV (15:12)
[2025-04-09 15:55] VITALS: BP 145/89; PULSE 78; RESP 18; TEMP 36.6; O2SAT 97
== END 2025-04-13 23:59 | disposition home or self-care (01) ==
PROVIDERS: PCP Nurse Practitioner Family; Visit Provider Nurse Practitioner Family
DX: D50.0 Iron deficiency anemia secondary to blood loss (chronic); Z79.899 Other long term (current) drug therapy; Z53.9 Procedure and treatment not carried out, unspecified reason
CPT/HCPCS: 96365; J1756

== ENCOUNTER → 2025-04-22 12:46 | Outpatient (BNVA) | payer BC, MEDICAID, SELFPAY | PROVIDERS: PCP Nurse Practitioner Family; Visit Provider Nurse Practitioner Family | DX: R10.9 Unspecified abdominal pain (principal) | CPT/HCPCS: 86003; 86008 ==

== ENCOUNTER 2025-06-03 12:59 | Oncology outpatient (recurring) (ONCR) | payer BC, MEDICAID, SELFPAY ==
[2025-06-03 13:20] LABS: Hematocrit 37.8 % (36-47); Hemoglobin 12.10 g/dL (11.27-16.99); Mean Corpuscular HGB Conc 32.0 g/dL (30-55); Mean Corpuscular Hemoglobin 27.5 pg (27-33); Mean Corpuscular Volume 85.9 fl (85-98); Nucleated Red Blood Cells % 0 %; Platelet Count 318 10^3/cmm (157-399); Red Blood Count 4.40 10^6/uL (3.85-5.65); White Blood Count 14.14 10^3/uL (3.29-11.43)
[2025-06-03 13:43] LABS: Alanine Aminotransferase 29 U/L (0-33); Albumin Level 4.1 g/dL (3.5-5.2); Alkaline Phosphatase 74 U/L (35-105); Anion Gap 15.3 (5-19); Aspartate Amino Transferase 25 U/L (0-32); Blood Urea Nitrogen 6 mg/dL (6-20); Calcium 8.6 mg/dL (8.5-10.5); Carbon Dioxide 23 mmol/L (22-29); Chloride 105 mmol/L (98-107); Creatinine Clr Calc Pharmacy 296.3243; Ferritin 203 ng/mL (15-150); Globulin 3.1 g/dL (1.3-4.6); Glucose 106 mg/dL (65-115); Iron 72 ug/dL (37-145); Osmolality Calculated 286 mOsm/kg (285-295); Potassium 4.3 mmol/L (3.5-5.1); Sodium 139 mmol/L (136-145); Total Iron Binding Capacity 292 mcg/dl; Total Protein 7.2 g/dL (6.6-8.7); Unsaturated Iron Binding 220 ug/dL (112-347)
--- NOTE | 2025-06-03 14:25 | XR_ITS ---
WS: [id number] Left ankle, 3 views, 06/03/2025 left ankle, 01/04/2017. Clinical Data: bilateral ankle pain Comparison: None. Findings: No fractures or dislocations are seen. The ankle mortise is normal. The talus and calcaneus are unremarkable. No soft tissue swelling over the medial or lateral malleolus is seen. There are calcifications inferior to the tip of the left lateral malleolus unchanged. XR/XR ankle LT min 3V* [id number] Impression: Negative left ankle.
--- NOTE | 2025-06-03 14:25 | XR_ITS ---
WS: [id number] Right ankle, 3 views, 06/03/2025 Clinical Data: bilateral ankle pain Comparison: Right ankle, 01/04/2017 Findings: No fractures or dislocations are seen. The ankle mortise is normal. The talus and calcaneus are unremarkable. There is minimal soft tissue swelling over the lateral malleolus. XR/XR ankle RT min 3V* [id number] Impression: 1. Negative for fracture or dislocation. 2. Swelling over right lateral malleolus.
== END 2025-06-14 23:59 | disposition home or self-care (01) ==
PROVIDERS: Internal Medicine Medical Oncology; PCP Nurse Practitioner Family; Visit Provider Nurse Practitioner Family
DX: D50.0 Iron deficiency anemia secondary to blood loss (chronic) (principal); M25.571 Pain in right ankle and joints of right foot; M25.572 Pain in left ankle and joints of left foot; M85.672 Other cyst of bone, left ankle and foot; R93.6 Abnormal findings on diagnostic imaging of limbs
CPT/HCPCS: 36415; 73610; 80053; 82728; 82746; 83540; 83550; 85025

== ENCOUNTER 2025-10-05 22:11 | Emergency (ER) | payer MEDICAID, SELFPAY ==
[2025-10-05 22:12] VITALS: BP 132/88; PULSE 93; RESP 16; TEMP 36.6; O2SAT 98; BMI 64.4
--- OUTSIDE RECORDS SUMMARY | 2025-10-05 22:17 | XMS_ITS | Clinical Summary ---
Author Organization [facility] Address [address] Attn: Epic Prelude ADT KAROLINE SCOTT [id number] Care Team Providers Care Joy Operator Name Role Phone Non-Staff, Physician Primary Care Provider Unava ilable Allergies No known active allergies Social History Tobacco Use Types Packs/Day Years Used Date Smoking Tobacco: Never Alcohol Use Standard Drinks/Week Comments No 0 (1 standard drink = 0.6 oz pur e alcohol) Comments Unknown Sex and Gender Information Value Date Recorded Sex Assigned at Not on file Legal Sex Female 11:11 AM PERSONAL [employer] OFFIC[employer] Gender Identity Not on file Sexual Orientation Not on file Last Filed Vital Signs Vital Sign Reading Time Taken Comments Blood Pressure 143/95 09/17/2015 7:00 PM [employer]ERSONAL [employer]ING OFFICER Pulse 102 09/17/2015 7:05 PM PERSONAL [employer]ING OFFICER Temperature 37.8 C (100 F) 09/17/2015 9:27 AM PERSONAL BANKING OFFICER Respiratory Rate 16 09/17/2015 7:05 PM PERSONAL BANKING OFFICER Oxygen Saturation - - Inhaled Oxygen Concentration - - Weight 93.4 kg (205 lb 14.6 oz) 09/17/2015 9:27 AM PERSONAL B[employer]ING OFFICER Height 167.6 cm (5' 6 ) 09/17/2015 9:27 AM PERSONAL BANKING OFFICER Body Mass Index 33.23 09/17/2015 9:27 AM PERSONAL BANKING OFFICER Plan of Treatment Health Maintenance Due Date Last Done Comments DTAP/TDAP/TD VACCINES (1 - Tdap) 2012 HEPATITIS B VACCINES (1 of 3 - 19+ 3-dose series) 10/15 HPV/Cotest (21-29) 2014 CERVICAL CANCER SCREENING 2023 HPV/Cotest (30-65) 2023 PAP SMEAR 2023 INFLUENZA VACCINE (#1) 2025 HPV VACCINES (No Doses Required) Completed Care Teams Joy Operator Relationship Specialty Start Date End Date Non-Staff, Physician NO ADDRESS ON FILE PCP - General 09/17/15
--- OUTSIDE RECORDS SUMMARY | 2025-10-05 22:17 | XMS_ITS | Data Portability ---
Author Organization [facility], [facility]atti , MAIN OFFICE Address [address] [place] [address] Assessment No assessment recorded. Plan of Treatment Reminders Order Date Submit Date Provider Last Modified By Organization Details Last Modified Time Details Appointments None recorded. Lab None recorded. Referral None recorded. Procedures None recorded. Surgeries None recorded. Imaging US, pelvis, complete - Transva ginal if indicated* 2018 019 [email or web address] [facility], [address] [facility], [place], [address], 9 15:38:12 Medication Orders None recorded. Patient TargetsNo targets recorded. Patient InstructionsNo instructions recorded. Reason for Referral None Reported. Results Created Date Observation Date Name Description Value Unit Range Abnormal Flag Note LastModifiedBy Organization Detail LastModifiedTime 10/14/20 19 10/14/2019 US, pelvi s, compl ete No observ ation record ed. [email or web address] [facility] (Radiology) [address] [facility], [place], [address], 10/22/2019 11:12:42 Result Notes None recorded. Problems No Known Problems Procedures Surgical History Date Name Laterality Status Provider Name and Address Organization Details Recorded Time BTL completed Keshawn Marrufo MD [address] [place], [address], [place] [facility], [facility] 10/17/2019 11:01:19 section completed Keshawn Marrufo MD [address] [place], [address], [facility], [facility] 10/17/2019 11:01:27 Imaging Results None recorded. Procedure Notes None recorded. Medical Equipment None Reported. Allergies No known drug allergies Medications Name Sig Start Date Stop Date Status Note LastModified by Organization Details LastModified Time Ultracet 37.5 mg-325 mg tablet Take 1 tablet every 4-6 hours by oral route as needed. 020 active Not Available Not Available Not Avai lable ferrous sulfate active Not Available Not Available Not Available ibuprofen active Not Available Not Radha ilable Not Available Vitals Date Recorded Body height Body mass index (BMI) Body weight Systolic And Diastolic Provider Name and Address Organization Details Last Updated DateTime 10/30/2019 157.48 cm 56.2 kg/m2 951795.86 g 139/93 mm[Hg] Keshawn Marrufo MD [address] [facility] [address], [facility], [facility] 10/30/2019 11:27:24 Date Recorded Body height Body mass index (BMI) Body weight Systolic And Diastolic Provider Name and Address Organization Details Last Updated DateTime 10/14/2019 157.48 cm 56.7 kg/m2 419395.63 g 117/81 mm[Hg] Keshawn Marrufo MD [address] [facility] [address], [facility], [facility] 10/14/2019 11:47:24 Social History Question Answer Notes LastModified by Organizat ion Details LastModified Time Tobacco Smoking Status Current Some Day Smoker Keshawn Marrufo MD [address] [place], [address], [facility], [facility] 10/14/2019 11:53:30 Do You Have An Advance Directive? No [email or web address] Information n ot available 10/14/2019 What Is Your Level Of Caffeine Consumption? Heavy Information not available 10/14/2019 Which Illicit Or Recreational Drugs Have You Used? Denies [email or web address] Information not available 10/14/2019 Education 10 [email or web address] Information no t available 10/14/2019 Herpes No [email or web address] Information no t available 10/14/2019 PID No [email or web address] Information no t available 10/14/2019 Gonorrhea No [email or web address] Information no t available 10/14/2019 Chlamydia No Information no t available 10/14/2019 Syphilis No Information no t available 10/14/2019 Trichomanosis No [email or web address] Information not available 10/14/2019 Condyloma No [email or web address] Information no t available 10/14/2019 Marital Status Single [email or web address] Informatio n not available 10/14/2019 What Was The Date Of Your Most Recent Tobacco Screening? 10/14/2019 [email or web address] Information not available 10/14/2019 Are You Sexually Active? Yes [email or web address] Information not available 10/14/2019 How Much Tobacco Do You Smoke? 0.25 PPD [email or web address] Information not available 10/14/2019 General Stress Level Low [email or web address] Information not available 10/14/2019 How Many Years Have You Smoked Tobacco? 8 [email or web address] Information not available 10/14/2019 Sex: Female Functional Status Question Answer Note LastModified by Organizat ion Details LastModified Time What is your level of alcohol consumption? None [email or web address] Information not available 10/14/2019 Do you or have you ever used smokeless tobacco? 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 Never used electronic cigarettes [email or web address] Information not available 10/14/2019 What is your exercise level? Moderate [email or web address] Information not available 10/14/2019 Mental Status None recorded. Family History Relationship Description Onset Age of this Age Resolved Age Notes LastModified by Organization Details LastModified Time Mother Diabetes mellitus [email or web address] Not available 2018 11:52:19 Maternal Aunt Malignant neoplastic disease breast Not available 2018 11:52:53 Medical History Condition Response Anemia Y Gynecological History Statement/Question Response Breast Problems N Flow Heavy Date of LMP 10/24/2019 Sexually Active? Y Y STIs/STDs N Last Pap Smear 2017 Duration of Flow (days) 5 Current Control Method Tubal Ligat ion Age at Menarche 11 LMP Approximate Hormone Replacement Therapy N Obstetrics History GPAL:G 4 P 6 0 0 6 Type Value Multiple Births 2 Full Term 6 Living 6 Total 4 Past Encounters Encounter ID Performer Location Encounter Start Date Encounter Closed Date Diagnosis/Indication Diagnosis SNOMED-CT Code Diagnosis ICD10 Code Diagnosis IMO Codes Diagnosis Note [id number] Keshawn Marrufo MD MAIN OFFICE [address] [place] [address] 10/14/2019 11:17:49 10/14/2019 15:38:12 Pain in pelvis 29535779 R10.2 Pt denies fever or chills, does report fatigue thinks that is due to kids at home. Pt reports normal bowel/blad baudilio function and denies abnormal vb or discharge. Discussed with pt the need for further evaluation with pelvic ultrasound . Discussed sx PAD vs. ovarian cyst. Pt was sent to [facility] today for pelvic ultrasound as she lives 2 hours away and getting back to [place] is difficult. Will notify pt of these findings. [id number] Keshawn Marrufo MD MAIN OFFICE [address] [place] [address] 10/30/2019 11:14:51 10/30/2019 13:13:50 Pain in pelvis 84873310 R10.2 Recent ultrasound revealed persistent left adnexal multicysti c lesion. Given CPP and persistent lesion recommende d surgical interventi on. Pt desires this immediatel y. Current medical health issues addressed. Operative informed consent obtained after discussing the risks, benefits, alternativ es and prognosis of the surgical procedure. Routine preop labs and preanesthe risa screening initiated- to be reviewed upon completion prior to surgery. Detailed post-op informatio n given to the pt in advance to allow anticipati on of what to expect once discharged from the operative facility and to provide answers in advance to commonly asked questions. Detailed instructio ns given regarding preoperati ve preparatio n including oral intake restrictio n after MN the day prior to surgery & dietary changes prior to that. We recommend the restrictio n of jewelry, fingernail iraqi, and makeup. Plan Dx LSC, Left ovarian cystotomy 11/05/2019. Cyst of left ovary [id number] N83.292 Health Concerns Section Related Observation LastModified by Organization Detai ls LastModified Time None Recorded Concern Status LastModified by Organization Details LastModified Time None Recorded Advance Directives Directive N: Payers Insurance Date Sequence Insurance Name Policy Number Policy Wiseman Covered Member ID Wiseman Member ID Guarantor Name 11/12/2019 1 [facility] (MEDICARE REPLACEMENT/A DVANTAGE - PPO) DENAE Metz [id number] Sacha Metz Notes Date Note Type Note Provider Name and Address Organization Details Recorded Time 10/14/2019 text/html Pelvic Pain/PressureReporte d by PatientHPIFor associated symptoms, patient reportsback painbut reportsno abdominal pain,no constipation,no diarrhea,no pain with urination,normal emptying of bladder,no blood in the urine,no hesitancy,normal libido,no nausea,no vomiting,no nocturia,no urine odor,no incontinence,no fever, andno feelings of urgency. For quality, patient reportspain. For severity, patient reportssevere. For duration, patient reportspresent for 2-3 months. Keshawn Marrufo MD [address] [place], [address], [facility] 10/17/2019 11:04:07 10/30/2019 text/html Pelvic Pain/PressureReporte d by PatientHPIFor associated symptoms, patient reportsback painbut reportsno abdominal pain,no constipation,no diarrhea,no pain with urination,normal emptying of bladder,no blood in the urine,no hesitancy,normal libido,no nausea,no vomiting,no nocturia,no urine odor,no incontinence,no fever, andno feelings of urgency. For quality, patient reportspain. For severity, patient reportssevere. For duration, patient reportspresent for 2-3 months. Keshawn Marrufo MD [address] [place], [address], [facility] 11/04/2019 16:42:30 OBGyn Episode Ob Episode Information Episode Created Date Number of Fetuses Patient Bloodtype Patient rh Status Prepregnancy Weight lbs Domestic Partner Domestic Partner Phone Father Name Timber Spotter Status 10/14/20 19 2 CLOSED Fetus Data First Name Last Name Admitted to NICU Weight (g) Sex Living Outcome Pediatric Complications Fetus ID Race Codes Race Delivery Type 3798.83 3 F Full Term 55145 Cesearean 3316.66 4704 F Full Term 05205 Cesearean Morgan Calculation Initial Morgan Date Initial Exam Date Initial Exam Provider Initial Ultrasound Date Last Menstrual Period Date Ultra Sound Weeks Gestation 0 Eighteen To Twenty Week Morgan Update Ultra Sound Date Fundal Height At Umbil Quickening Date Ultra Sound Latest Weeks Gestation Final Morgan Confirmed By Final Morgan Confirmed Date Final Morgan Date Ultra Sound Latest Days Gestation 0 0 Menstrual History Last Menstrual Date Menses Monthly On Bcp Conception Prior Menses Frequency Hcg Plus Date Menarche Onset Age Delivery Information Delivery Date Delivery Type Labor Anesthesia Weeks Gestation Incision Type Labor Labor Length Hrs Delivered By Post Complications Tubal Sterilization Discharge Date Comments 4 false Discharge Information Feeding Method Contraceptive Method Maternal HG B and HCT Levels Ob Episode Information Episode Created Date Number of Fetuses Patient Bloodtype Patient rh Status Prepregnancy Weight lbs Domestic Partner Domestic Partner Phone Father Name Timber Spotter Status 10/14/20 19 2 CLOSED Fetus Data First Name Last Name Admitted to NICU Weight (g) Sex Living Outcome Pediatric Complications Fetus ID Race Codes Race Delivery Type 3345.24 1 F Full Term 63663 Cesearean 3770.25 6704 F Full Term 13010 Cesearean Morgan Calculation Initial Morgan Date Initial Exam Date Initial Exam Provider Initial Ultrasound Date Last Menstrual Period Date Ultra Sound Weeks Gestation 0 Eighteen To Twenty Week Morgan Update Ultra Sound Date Fundal Height At Umbil Quickening Date Ultra Sound Latest Weeks Gestation Final Morgan Confirmed By Final Morgan Confirmed Date Final Morgan Date Ultra Sound Latest Days Gestation 0 0 Menstrual History Last Menstrual Date Menses Monthly On Bcp Conception Prior Menses Frequency Hcg Plus Date Menarche Onset Age Delivery Information Delivery Date Delivery Type Labor Anesthesia Weeks Gestation Incision Type Labor Labor Length Hrs Delivered By Post Complications Tubal Sterilization Discharge Date Comments 3 false Discharge Information Feeding Method Contraceptive Method Maternal HG B and HCT Levels Ob Episode Information Episode Created Date Number of Fetuses Patient Bloodtype Patient rh Status Prepregnancy Weight lbs Domestic Partner Domestic Partner Phone Father Name Timber Spotter Status 10/14/20 19 1 CLOSED Fetus Data First Name Last Name Admitted to NICU Weight (g) Sex Living Outcome Pediatric Complications Fetus ID Race Codes Race Delivery Type 3912.23 1 M Full Term 65414 Cesearean Morgan Calculation Initial Morgan Date Initial Exam Date Initial Exam Provider Initial Ultrasound Date Last Menstrual Period Date Ultra Sound Weeks Gestation 0 Eighteen To Twenty Week Morgan Update Ultra Sound Date Fundal Height At Umbil Quickening Date Ultra Sound Latest Weeks Gestation Final Morgan Confirmed By Final Morgan Confirmed Date Final Morgan Date Ultra Sound Latest Days Gestation 0 0 Menstrual History Last Menstrual Date Menses Monthly On Bcp Conception Prior Menses Frequency Hcg Plus Date Menarche Onset Age Delivery Information Delivery Date Delivery Type Labor Anesthesia Weeks Gestation Incision Type Labor Labor Length Hrs Delivered By Post Complications Tubal Sterilization Discharge Date Comments 6 Discharge Information Feeding Method Contraceptive Method Maternal HG B and HCT Levels Ob Episode Information Episode Created Date Number of Fetuses Patient Bloodtype Patient rh Status Prepregnancy Weight lbs Domestic Partner Domestic Partner Phone Father Name Timber Spotter Status 10/14/20 19 1 CLOSED Fetus Data First Name Last Name Admitted to NICU Weight (g) Sex Living Outcome Pediatric Complications Fetus ID Race Codes Race Delivery Type 4252.42 5 M Full Term 70699 Vaginal Morgan Calculation Initial Morgan Date Initial Exam Date Initial Exam Provider Initial Ultrasound Date Last Menstrual Period Date Ultra Sound Weeks Gestation 0 Eighteen To Twenty Week Morgan Update Ultra Sound Date Fundal Height At Umbil Quickening Date Ultra Sound Latest Weeks Gestation Final Morgan Confirmed By Final Morgan Confirmed Date Final Morgan Date Ultra Sound Latest Days Gestation 0 0 Menstrual History Last Menstrual Date Menses Monthly On Bcp Conception Prior Menses Frequency Hcg Plus Date Menarche Onset Age Delivery Information Delivery Date Delivery Type Labor Anesthesia Weeks Gestation Incision Type Labor Labor Length Hrs Delivered By Post Complications Tubal Sterilization Discharge Date Comments 2 false Discharge Information Feeding Method Contraceptive Method Maternal HG B and HCT Levels
--- OUTSIDE RECORDS SUMMARY | 2025-10-05 22:17 | XMS_ITS | Clinical Summary ---
Author Organization [facility] Address [address] [place] [address] Phone Care Team Providers Care Web Assistant Name Role Phone Non-Staff, Physician Primary Care Provider Unava ilable Allergies No known active allergies Medications No known medications Social History Tobacco Use Types Packs/Day Years Used Date Smoking Tobacco: Never Alcohol Use Standard Drinks/Week Comments No 0 (1 standard drink = 0.6 oz pur e alcohol) Comments Unknown Sex and Gender Information Value Date Recorded Sex Assigned at Not on file Legal Sex Female 9:18 AM ORTHOTIC/PROSTHETIC PRACTITIONER Gender Identity Not on file Sexual Orientation Not on file Last Filed Vital Signs Vital Sign Reading Time Taken Comments Blood Pressure 143/95 09/17/2015 7:00 PM ORTHOTIC/PROSTHETIC PRACTITIONER Pulse 102 09/17/2015 7:05 PM ORTHOTIC/PROSTHETIC PRACTITIONER Temperature 37.8 C (100 F) 09/17/2015 9:27 AM ORTHOTIC/PROSTHETIC PRACTITIONER Respiratory Rate 16 09/17/2015 7:05 PM ORTHOTIC/PROSTHETIC PRACTITIONER Oxygen Saturation 92% 09/17/2015 7:05 PM ORTHOTIC/PROSTHETIC PRACTITIONER Inhaled Oxygen Concentration - - Weight 93.4 kg (205 lb 14.6 oz) 09/17/2015 9:27 AM ORTHOTIC/PROSTHETIC PRACTITIONER Height 167.6 cm (5' 6 ) 09/17/2015 9:27 AM ORTHOTIC/PROSTHETIC PRACTITIONER Body Mass Index 33.23 09/17/2015 9:27 AM ORTHOTIC/PROSTHETIC PRACTITIONER Plan of Treatment Health Maintenance Due Date Last Done Comments DTAP/TDAP/TD VACCINES (1 - Tdap) 2012 HEPATITIS B VACCINES (1 of 3 - 19+ 3-dose series) 10/15 HPV/Cotest (21-29) 2014 CERVICAL CANCER SCREENING 2023 HPV/Cotest (30-65) 2023 PAP SMEAR 2023 INFLUENZA VACCINE (#1) 2025 HPV VACCINES (No Doses Required) Completed Insurance MEDICAID [place] Care Teams Web Assistant Relationship Specialty Start Date End Date Non-Staff, Physician NO ADDRESS ON FILE PCP - General 09/17/15
--- OUTSIDE RECORDS SUMMARY | 2025-10-05 22:17 | XMS_ITS | Data Portability ---
Author Organization [facility], [facility] Address [address] [facility] [address] [place] [address] Assessment No assessment recorded. Plan of Treatment Reminders Order Date Submit Date Provider Last Modified By Organization Details Last Modified Time Details Appointments None recorded. Lab None recorded. Referral gynecologis t referral 2022 023 [facility], [address] [place] [address], [id number], 3 14:40:20 Procedures None recorded. Surgeries None recorded. Imaging None recorded. Medication Orders Sprintec (28) 0.25 mg-0.035 mg tablet 2022 023 [facility], [address] [place] [address], [id number], 3 16:11:26 Patient TargetsNo targets recorded. Patient InstructionsNo instructions recorded. 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 Medical Equipment None Reported. Allergies No known drug allergies Medications Name Sig Start Date Stop Date Status Note LastModified by Organization Details LastModified Time bupropion HCl SR 150 mg tablet,12 hr sustained-r elease TAKE ONE TABLET BY MOUTH TWICE DAILY active Not Available Not Available No t Available promethazin e-DM 6.25 mg-15 mg/5 mL oral syrup take FIVE TO 10ml BY MOUTH EVERY 6 HOURS NEEDED FOR cough active Not Available Not Available No t Available gabapentin 600 mg tablet TAKE ONE TABLET BY MOUTH TWICE DAILY FOR 30 DAYS 04/19 completed Not Available Not Available Not Available clindamycin HCl 300 mg capsule TAKE ONE CAPSULE BY MOUTH THREE TIMES DAILY FOR 10 DAYS 04/19 completed Not Available Not Available Not Available ibuprofen 800 mg tablet TAKE ONE TABLET BY MOUTH THREE TIMES DAILY active Not Available Not Available No t Available hydrocodone 5 mg-acetamin ophen 325 mg tablet TAKE 1 TABLET BY MOUTH EVERY 8 HOURS NEEDED FOR PAIN active Not Available Not Available No t Available phentermine 37.5 mg tablet TAKE ONE TABLET BY MOUTH DAILY 30 minutes BEFORE OR 1-2 hours AFTER breakfast active Not Available Not Available No t Available ketorolac 10 mg tablet TAKE 1 TABLET BY MOUTH THREE TIMES DAILY NEEDED FOR PAIN active Not Available Not Available No t Available amoxicillin 875 mg tablet TAKE ONE TABLET BY MOUTH TWICE DAILY FOR 10 DAYS 04/19 completed Not Available Not Available Not Available pantoprazol e 40 mg tablet,olvin yed release TAKE ONE TABLET BY MOUTH DAILY active Not Available Not Available No t Available buspirone 10 mg tablet TAKE ONE TABLET BY MOUTH THREE TIMES DAILY active Not Available Not Available No t Available promethazin e 25 mg tablet TAKE ONE TABLET BY MOUTH FOUR TIMES DAILY NEEDED FOR NAUSEA AND VOMITING active Not Available Not Available No t Available gabapentin 300 mg capsule TAKE ONE CAPSULE BY MOUTH THREE TIMES DAILY FOR 30 DAYS active Not Available Not Available No t Available diclofenac sodium 75 mg tablet,olvin yed release TAKE ONE TABLET BY MOUTH TWICE DAILY NEEDED FOR pain active Not Available Not Available No t Available gabapentin 100 mg capsule TAKE ONE CAPSULE BY MOUTH THREE TIMES DAILY 04/19 completed Not Available Not Available Not Available ondansetron 4 mg disintegrat ing tablet dissolve ONE tablet BY MOUTH EVERY 8 HOURS NEEDED FOR NAUSEA AND VOMITING active Not Available Not Available No t Available fluticasone propionate 50 mcg/actuati on nasal spray,suspe nsion instill TWO SPRAYS IN EACH NOSTRIL DAILY active Not Available Not Available No t Available sertraline 50 mg tablet TAKE ONE TABLET BY MOUTH EVERY DAY active Not Available Not Available No t Available amoxicillin 500 mg-potassiu m clavulanate 125 mg tablet TAKE ONE TABLET BY MOUTH THREE TIMES DAILY FOR 10 DAYS 04/19 completed Not Available Not Available Not Available Ventolin HFA 90 mcg/actuati on aerosol inhaler inhale one PUFF BY MOUTH FOUR TIMES DAILY NEEDED FOR SHORTNESS OF BREATH OR wheezing active Not Available Not Available No t Available Symbicort 160 mcg-4.5 mcg/actuati on HFA aerosol inhaler inhale TWO puffs into lungs TWICE DAILY active Not Available Not Available No t Available diclofenac 1 % topical gel APPLY FOUR GRAMS TOPICALLY FOUR TIMES DAILY 04/19 completed Not Available Not Available Not Available tranexamic acid 650 mg tablet TAKE TWO TABLETS BY MOUTH THREE TIMES DAILY FOR abnormal uterine bleeding FOR FIVE DAYS active Not Available Not Available No t Available Estarylla 0.25 mg-0.035 mg tablet TAKE ONE TABLET BY MOUTH DAILY active Not Available Not Available No t Available Vitamins Plus Low Iron 27 mg iron-1 mg tablet TAKE ONE TABLET BY MOUTH EVERY DAY active Not Available Not Available No t Available Contrave 8 mg-90 mg tablet,exte nded release TAKE TWO TABLETS BY MOUTH TWICE DAILY. active Not Available Not Available No t Available Ozempic 0.25 mg or 0.5 mg (2 mg/1.5 mL) subcutaneou s pen injector INJECT 0.5MG WEEKLY active Not Available Not Available No t Available Vitals Date Recorded Respiratory rate Body height Body mass index (BMI) Body weight Body temperature Heart rate Oxygen saturation Systolic And Diastolic Provider Name and Address Organization Details Last Updated DateTime 3 20 /min 157.48 cm 59.7 kg/m2 016253. 51 g 97.1 [degF] 80 /min 98.01 % 118/80 mm[Hg] AKIKO SEPULVEDA [facility] 3 15:42:27 Social History None recorded. Functional Status None recorded. Mental Status None recorded. Family History Nothing Reported. Medical History No medical history recorded. Gynecological HistoryNo gynecological history recorded. Obstetrics History GPAL:G 0 P 0 0 0 0 Immunizations Vaccine Type Date Status Note Provider Nam e and Address Organization Details Recorded Time MMR 8 completed AKIKO carias [facility] 04/19/2023 14:52:03 MMR 5 completed AKIKO COCO null, [facility] 04/19/2023 14:52:03 Tdap 8 completed AKIKO COCO null, [facility] 04/19/2023 14:52:03 DTP 4 completed AKIKO COCO null, [facility] 04/19/2023 14:52:03 Hep B, unspecified formulation 5 completed AKIKO COCO null, [facility] 04/19/2023 14:52:03 Hep B, unspecified formulation 4 completed AKIKO COCO null, [facility] 04/19/2023 14:52:03 Hep B, unspecified formulation 5 completed AKIKO COCO null, [facility] 04/19/2023 14:52:03 OPV, trivalent 5 completed AKIKO COCO null, [facility] 04/19/2023 14:52:03 OPV, trivalent 4 completed AKIKO COCO null, [facility] 04/19/2023 14:52:03 polio, unspecified formulation 6 completed AKIKO COCO null, [facility] 04/19/2023 14:52:03 polio, unspecified formulation 8 completed AKIKO COCO null, [facility] 04/19/2023 14:52:03 DTP-Hib 6 completed AKIKO COCO null, [facility] 04/19/2023 14:52:03 DTP-Hib 5 completed AKIKOSA COCO carias, [facility] 04/19/2023 14:52:03 HPV, quadrivalent 8 completed AKIKOSA COCO carias, [facility] 04/19/2023 14:52:03 HPV, quadrivalent 2 completed AKIKOSA COCO carias [facility] 04/19/2023 14:52:04 Hib (HbOC) 4 completed AKIKOSA COCO carias, [facility] 04/19/2023 14:52:04 DTaP 8 completed AKIKOSA COCO carias [facility] 04/19/2023 14:52:04 Past Encounters Encounter ID Performer Location Encounter Start Date Encounter Closed Date Diagnosis/Indication Diagnosis SNOMED-CT Code Diagnosis ICD10 Code Diagnosis IMO Codes Diagnosis Note [id number] Greg Tenorio MD [facility]) [address] [place] [phone] 04/19/2023 14:43:21 04/19/2023 16:51:40 Menorrhagia 555429140 N92.0 Discussed options and we will go ahead and proceed with a different type of control today. Based on history the patient would likely benefit from surgical options such as ablation and or possibly hysterecto my. Patient would like to go ahead and try to see if she can get into see Dr. Steve. Health Concerns Section Related Observation LastModified by Organization Detai ls LastModified Time None Recorded Concern Status LastModified by Organization Details LastModified Time None Recorded Advance Directives Directive None Recorded Payers Insurance Date Sequence Insurance Name Policy Number Policy Wiseman Covered Member ID Wiseman Member ID Guarantor Name 05/01/2023 1 [facility] (MEDICAID REPLACEMENT - HMO) DENAE Metz [id number] Sacha Metz Notes Date Note Type Note Provider Name and Address Organization Details Recorded Time 04/19/2023 text/html This is a 27-year-old female that presents today to discuss heavy periods with breakthrough bleeding. Patient has been under evaluation with Dr. Locke but he has not been returning phone calls as well as she would like. She reports that she has undergone diagnostic laparoscopic evaluation, tried control, and has had imaging. She states that she does not know what the reason is why she continues to have heavy periods with breakthrough bleeding. She states that this has been going on since the of her son 7 years ago. Patient's had having of bleeding where she is required tranexamic acid in the past. Greg Tenorio MD [address] [place] [address], [phone], [facility] 04/19/2023 16:45:30 OBGyn Episode No OBEpisode recorded.
--- NOTE | 2025-10-05 22:42 | XRR_ITS ---
PROCEDURE INFORMATION: Exam: XR Chest Exam date and time: 10/05/2025 10:42 PM Age: 29 years old Clinical indication: Shortness of breath; Chest pressure and sternal or substernal pain; C/O substernal chest pain that started around [id number]. PT reports sharp stabbing chest pain that radiates into left shoulder. ; Additional info: Cp, SOB TECHNIQUE: Imaging protocol: Radiologic exam of the chest. Views: 1 view. COMPARISON: CR XR chest 1V portable [id number] 11/28/2024 11:37 PM FINDINGS: Lungs: Unremarkable. No consolidation. Pleural spaces: Unremarkable. No pleural effusion. No pneumothorax. Heart/Mediastinum: Unremarkable. No cardiomegaly. Bones/joints: Unremarkable. XR/XR chest 1V portable [id number] IMPRESSION: No acute findings.
--- NOTE | 2025-10-05 22:42 | ECG_ITS ---
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
[2025-10-05 22:43] VITALS: BP 155/87; PULSE 86; O2SAT 97
--- NOTE | 2025-10-05 22:50 | W.ED.CHESTPA ---
Documented by User: KIMBERLY Philippe 10/06/25 00:21 HPI - Chest Pain General: Chief Complaint: Chest Pain Stated Complaint: chest pain Time Seen by Provider: 10/05/25 22:25 Source: patient Mode of arrival: ambulatory Limitations: no limitations History of Present Illness: Patient is a 29-year-old female who presents emergency department for complaints of chest pain beginning around 1830 this evening while at work. 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 It is to the left chest and sharp and stabbing in quality, states it goes into her left shoulder and she has a history of similar in the past prompting her wearing a heart monitor. She tells me that no diagnostics were made from the heart monitor as she never heard back. She is endorsing associated shortness of breath and palpitations, as well as peripheral edema. Pain rated 9/10 at this time, she states it is worse with exertion and has been constant since onset. Denies any personal cardiac history, but states she has a strong family history. Her vitals are stable at this time. Denies any recent illness, fevers, nausea/vomiting, or any other symptoms. MD complaint: chest pain Onset (ago): hour(s) Timing of current episode: constant Prior episodes: Yes Onset: during exertion Pain location: left chest Pain radiation: left shoulder Severity: severe Pain scale (0-10): 9 Quality: sharp and other (stabbing) Exacerbating factors: exertion Associated symptoms: Reports dyspnea and palpitations; Deny abdominal pain, fever(s), nausea or vomiting Related Data Previous Rx's ?Medication ?Instructions ?Recorded hydrochlorothiazide 25 mg tablet 25 mg PO DAILY #30 tabs 02/24/25 celecoxib 200 mg capsule (Celebrex) 200 mg PO BID #60 caps 04/02/25 clotrimazole-betamethasone 1 1 applic topical BID 2 weeks #15 04/02/25 %-0.05 % topical cream grams pravastatin 10 mg tablet 10 mg PO DAILY #30 tabs 04/22/25 cam walker boot #1 ea 06/04/25 ibuprofen 600 mg tablet 600 mg PO TID PRN pain #21 tabs 06/04/25 amoxicillin 875 mg-potassium 1 tab PO BID 7 days #14 tabs 07/31/25 clavulanate 125 mg tablet promethazine-DM 6.25 mg-15 mg/5 mL 7.5 ml PO Q6H PRN cough #118 mL 07/31/25 oral syrup gabapentin 800 mg tablet 800 mg PO TID 30 days #90 tabs 08/17/25 pantoprazole 40 mg tablet,delayed See Rx Instructions .Route 08/20/25 release .COMPLEX #30 tabs Allergies Allergy/AdvReac Type Severity Reaction Status Date / Time acetaminophen (From Tylenol) Allergy Mild ADR-Vomitin Verified 10/05/25 22:25 g Review of Systems General: Reports: 10 or more systems reviewed and unremarkable except in HPI and below Const: Denies: fever(s), chills or fatigue Eyes: Denies: change in vision ENMT: Denies: throat pain, ear or mastoid pain or nasal discharge Card: Reports: chest pain, palpitations and swelling of feet/ankles; Denies: lightheadedness Resp: Reports: dyspnea; Denies: productive cough or wheezing GI: Denies: abdominal pain, nausea, vomiting, diarrhea or constipation : Denies: flank pain, difficulty voiding, dysuria or urinary frequency Musc: Denies: neck pain, back pain or joint pain Skin/Breast: Denies: rash Neuro: Denies: headache(s), numbness in extremities or weakness in extremities PFSH ED PFSH: Medical History GERD (gastroesophageal reflux disease) Iron deficiency anemia secondary to blood loss (chronic) Helicobacter pylori gastritis Anxiety and depression Elevated blood pressure reading Asthma Has had asthma since she was a child and denies any history of intubations or hospitalizations Surgical History Status post colonoscopy (10/28/21) H/O esophagogastroduodenoscopy (10/28/21) Status post laparoscopic cholecystectomy History of dilatation and curettage 01/20/2021----> hysteroscopy D&C performed by Dr. Murphy at [facility] for abnormal uterine bleeding-pathology showed secretory endometrium without malignancy. Hysteroscopy was complicated by the fact that patient was bleeding with just thick fluffy endometrium identified without obvious lesions Hx of section x 3 08/10/2013-malpresentation of twin gestation with a leg prolapsed-emergency by Dr. Kali Gates at [facility] 07/19/2014---- repeat for twins performed by Dr. Gates at [facility]. 04/06/2016-repeat with the drainage of left ovarian cyst and bilateral tubal ligation performed by Dr. Cannon at [facility] Hx of tubal ligation 04/06/2016-bilateral tubal ligation performed at time of by Dr. Cannon Family History Mother Diabetes Hypertension Family/Other Cancer Breast cancer maternal cousin Grandmother Diabetes maternal Denies family history of Colon cancer Ovarian cancer Hyperlipidemia Uterine cancer Thyroid disease Stroke Social History Smoking and tobacco/nicotine status: former use of tobacco/nicotine Physical Exam Const: COMMON NORMALS: no acute distress, patient oriented x3 and no limitations GENERAL APPEARANCE: cooperative and well developed NUTRITIONAL APPEARANCE: obese morbidly obese ORIENTATION/CONSCIOUSNESS: Yes awake, Yes oriented to person, Yes oriented to place and Yes oriented to time HENMT: COMMON NORMALS: normocephalic, atraumatic and hearing grossly normal bilaterally HEAD & SCALP: normocephalic and atraumatic Eye: COMMON NORMALS: Equal, round and reactive pupils present, EOMs intact bilaterally and conjunctivae normal CONJUNCTIVA: Yes conjunctivae normal PUPIL: Yes Equal, round and reactive pupils present Neck/C-Spine: COMMON NORMALS: full ROM, supple and no JVD Resp: COMMON NORMALS: normal respiratory effort, No retractions, No use of accessory muscles and clear to auscultation bilaterally AUSCULTATION: clear to auscultation bilaterally Cardio: COMMON NORMALS: no JVD, regular rate, regular rhythm, No clicks present (Cardio), No murmurs present (Cardio) and No rub (Cardio) RATE: regular rate RHYTHM: regular rhythm GI: COMMON NORMALS: Normal to inspection, nondistended, normoactive bowel sounds present, Soft to palpation and non-tender AUSCULTATION: Yes normoactive bowel sounds PALPATION: Yes Soft to palpation RECTAL EXAM: deferred Extremity: COMMON NORMALS: normal to inspection, full ROM and capillary refill normal Neuro: COMMON NORMALS: patient oriented x3, moves all extremities, no focal motor deficits and no sensory deficits noted SENSORIUM/ORIENTATION: Yes oriented to person, Yes oriented to place and Yes oriented to time Skin: COMMON NORMALS: no rashes or lesions noted GENERAL SKIN EXAM: no rashes or lesions noted Course Vital Signs: Vital signs: Vital Signs Temperature 97.9 F 10/05/25 22:12 Pulse Rate 89 10/06/25 00:21 Respiratory Rate 16 10/05/25 22:12 Blood Pressure 121/93 10/06/25 00:21 Pulse Oximetry 98 10/06/25 00:21 Oxygen Delivery Me thod Room Air 10/06/25 00:15 MDM - Chest Pain Medical Decision Making Patient presented for chest pain associated with shortness of breath palpitations beginning while at work earlier this evening. Reported to me history of similar of which she has required court monitor in the past, but tells me that this was not diagnostic. He was nontoxic-appearing, stated the pain was constant. Heart score 0. States that she had received stress test with primary care in the past but again tells me that she was not diagnosed with anything from this. Her troponin negative here. EKG showing normal sinus rhythm with no rhythm changes. X-ray normal, rest of her lab work normal. She has a history of anxiety I suspect that this is likely prompting her symptoms, feel that this chest pain is noncardiac in nature and she is stable for discharge home with outpatient follow-up in place. Lab Data 10/05/25 22:58 10/05/25 22:58 Radiology Impressions Chest X-Ray 10/05/25 22:42 IMPRESSION: No acute findings. Laboratory Results WBC 12.55 10^3/uL (3.29-11.43) H 10/05/25 22:58 RBC 4.53 10^6/uL (3.85-5.65) 10/05/25 22:58 Hgb 12.70 g/dL (11.27-16.99) 10/05/25 22:58 Hct 38.8 % (36-47) 10/05/25 22:58 MCV 85.7 fl (85-98) 10/05/25 22:58 MCH 28.0 pg (27-33) 10/05/25 22:58 MCHC 32.7 g/dL (30-55) 10/05/25 22:58 RDW 13.5 % (12.1-15.1) 10/05/25 22:58 Plt Count 336 10^3/cmm (157-399) 10/05/25 22:58 MPV 9.8 fL (7.4-10.4) 10/05/25 22:58 Neut % (Auto) 65.2 % 10/05/25 22:58 Lymph % (Auto) 26.1 % 10/05/25 22:58 Hayes % (Auto) 5.9 % 10/05/25 22:58 Eos % (Auto) 2.1 % 10/05/25 22:58 Baso % (Auto) 0.3 % 10/05/25:58 Neut # (Auto) 8.19 10^3/uL (1.8-7.7) H 10/05/25:58 Lymph # (Auto) 3.3 10^3/uL (0.8-4.8) 10/05/25 22:58 Hayes # (Auto) 0.7 10^3/uL (0.2-0.9) 10/05/25 22:58 Eos # (Auto) 0.3 10^3/uL (0.0-0.8) 10/05/25 22:58 Baso # (Auto) 0.0 10^3/uL (0.0-0.1) 10/05/25:58 Nucleated RBC % (auto) 0 % 10/05/25:58 Nucleated RBCs # 0.0 /100WBC 10/05/25 22:58 Sodium 141 mmol/L (136-145) 10/05/25 22:58 Potassium 3.9 mmol/L (3.5-5.1) 10/05/25 22:58 Chloride 104 mmol/L (98-107) 10/05/25 22:58 Carbon Dioxide 25 mmol/L (22-29) 10/05/25 22:58 Anion Gap 15.9 (5-19) 10/05/25 22:58 BUN 9 mg/dL (6-20) 10/05/25 22:58 Creatinine 0.5 mg/dL (0.5-0.9) 10/05/25 22:58 GFR Calculation 143.9 mL/min (90-130) H 10/05/25 22:58 Glucose 103 mg/dL (65-115) 10/05/25 22:58 Calculated Osmolality 291 mOsm/kg (285-295) 10/05/25 22:58 Calcium 9.7 mg/dL (8.5-10.5) 10/05/25 22:58 Total Bilirubin 0.2 mg/dL (0.15-1.2) 10/05/25 22:58 AST 29 U/L (0-32) 10/05/25 22:58 ALT 42 U/L (0-33) H 10/05/25 22:58 Alkaline Phosphatase 62 U/L (35-105) 10/05/25 22:58 Troponin T Baseline < 6 ng/L (0-10) 10/05/25 22:58 Total Protein 6.7 g/dL (6.6-8.7) 10/05/25 22:58 Albumin 4.4 g/dL (3.5-5.2) 10/05/25 22:58 Globulin 2.3 g/dL (1.3-4.6) 10/05/25 22:58 Influenza A (PCR) Negative (Negative) 10/05/25 23:28 Influenza Type B (PCR) Negative (Negative) 10/05/25 23:28 RSV (PCR) Negative (Negative) 10/05/25 23:28 SARS-CoV-2 (PCR) Negative (Negative) 10/05/25 23:28 All radiology interpretation(s) finalized by discharge Discharge Plan Discharge Patient Disposition: Home Clinical Impression: Anxiety Chest pain Qualifiers: Chest pain type: unspecified Qualified Code(s): R07.9 - Chest pain, unspecified Condition: Stable Prescriptions: No Action hydrochlorothiazide 25 mg tablet 25 mg PO DAILY Qty: 30 2RF pravastatin 10 mg tablet 10 mg PO DAILY Qty: 30 2RF ibuprofen 600 mg tablet 600 mg PO TID PRN (Reason: pain) Qty: 21 0RF (DME) cam walker boot See Rx Instructions .Route .MEDSUPPLY Qty: 1 0RF Rx Instructions: As directed celecoxib [Celebrex] 200 mg capsule 200 mg PO BID Qty: 60 2RF clotrimazole-betamethasone 1-0.05 % cream 1 applic topical BID 14 Days Qty: 15 0RF amoxicillin-pot clavulanate 875-125 mg tablet 1 tab PO BID 7 Days Qty: 14 0RF promethazine-DM 6.25-15 mg/5 mL syrup 7.5 ml PO Q6H PRN (Reason: cough) Qty: 118 0RF gabapentin 800 mg tablet 800 mg PO TID 30 Days Qty: 90 5RF pantoprazole 40 mg tablet,delayed release (DR/EC) See Rx Instructions .ROUTE .COMPLEX Qty: 30 2RF Dose Instruction: TAKE 1 TABLET BY MOUTH ONCE A DAY Rx Instructions: TAKE 1 TABLET BY MOUTH ONCE A DAY Discharge Orders: Discharge ED (Routine); Ordered 10/06/25 Ordered By: Walter Martin Referrals: Alba Rocha FNP-C [Primary Care Provider, Family Practice] Patient Instructions: Chest Pain (ED), Patient Portal & Lisseth Instructions Activity Restrictions/Additional Instructions: Discharge Instructions Diagnosis: You were evaluated for chest pain. Testing has ruled out a heart attack and other serious heart conditions. Your diagnosis is nonspecific noncardiac chest pain and anxiety. What This Means: Your heart has been thoroughly evaluated and is not the cause of your chest pain. This is good news. Many people experience chest pain that is not related to the heart. Common causes include musculoskeletal pain (from muscles or ribs), gastrointestinal issues (like acid reflux), and anxiety or stress. Follow-Up Care: - Schedule an appointment with your primary care provider within 2 weeks (ideally within 14 days). - Your primary care provider will help identify the specific cause of your chest pain and develop a treatment plan. - Bring a list of any symptoms you experience, including when they occur and what makes them better or worse. Treatment Considerations: Your primary care provider may discuss several treatment options with you, which could include: - Evaluation for gastrointestinal causes such as acid reflux - Assessment for musculoskeletal causes like chest wall pain - Consideration of anxiety or stress-related factors About Anxiety and Chest Pain: Anxiety, panic attacks, and stress can cause real chest pain and shortness of breath. If you have recurrent chest pain episodes similar to this one, cognitive-behavioral therapy has been shown to reduce chest pain frequency by about one-third. Your primary care provider can discuss whether a referral to a mental health professional would be helpful for you. When to Seek Emergency Care: Return to the emergency department or call 911 if you experience: - Chest pain that is different from what you experienced before - Chest pain with shortness of breath, sweating, nausea, or pain radiating to your arm or jaw - Severe difficulty breathing - Fainting or loss of consciousness - Any other symptoms that concern you Important Reminders: - Continue taking all your regular medications as prescribed - Avoid smoking and limit alcohol consumption - Maintain a healthy diet and regular physical activity as tolerated - Manage stress through relaxation techniques, adequate sleep, and healthy coping strategies Questions? If you have questions before your follow-up appointment, contact your primary care provider's office. Print Language: Telugu Coding Level of Care Code ED Joist Setter for Chg Fwd Heart Score HEART Score Components History: Slightly Suspicous EKG: Normal Age: Less than 45 yrs Risk Factors: No Risk Factors Known Troponin: Baseline Trop <16 ng/L HEART Score RESULT HEART Score: 0 Documented by User: Taurus Abraham DO 10/06/25 00:24 HPI - Chest Pain General: Chief Complaint: Chest Pain Stated Complaint: chest pain Time Seen by Provider: 10/05/25 22:25 Related Data Previous Rx's ?Medication ?Instructions ?Recorded hydrochlorothiazide 25 mg tablet 25 mg PO DAILY #30 tabs 02/24/25 celecoxib 200 mg capsule (Celebrex) 200 mg PO BID #60 caps 04/02/25 clotrimazole-betamethasone 1 1 applic topical BID 2 weeks #15 04/02/25 %-0.05 % topical cream grams pravastatin 10 mg tablet 10 mg PO DAILY #30 tabs 04/22/25 cam walker boot #1 ea 06/04/25 ibuprofen 600 mg tablet 600 mg PO TID PRN pain #21 tabs 06/04/25 amoxicillin 875 mg-potassium 1 tab PO BID 7 days #14 tabs 07/31/25 clavulanate 125 mg tablet promethazine-DM 6.25 mg-15 mg/5 mL 7.5 ml PO Q6H PRN cough #118 mL 07/31/25 oral syrup gabapentin 800 mg tablet 800 mg PO TID 30 days #90 tabs 08/17/25 pantoprazole 40 mg tablet,delayed See Rx Instructions .Route 08/20/25 release .COMPLEX #30 tabs Allergies Allergy/AdvReac Type Severity Reaction Status Date / Time acetaminophen (From Tylenol) Allergy Mild ADR-Vomitin Verified 10/05/25 22:25 g PFSH ED PFSH: Medical History GERD (gastroesophageal reflux disease) Iron deficiency anemia secondary to blood loss (chronic) Helicobacter pylori gastritis Anxiety and depression Elevated blood pressure reading Asthma Has had asthma since she was a child and denies any history of intubations or hospitalizations Surgical History Status post colonoscopy (10/28/21) H/O esophagogastroduodenoscopy (10/28/21) Status post laparoscopic cholecystectomy History of dilatation and curettage 01/20/2021----> hysteroscopy D&C performed by Dr. Murphy at [facility] for abnormal uterine bleeding-pathology showed secretory endometrium without malignancy. Hysteroscopy was complicated by the fact that patient was bleeding with just thick fluffy endometrium identified without obvious lesions Hx of section x 3 08/10/2013-malpresentation of twin gestation with a leg prolapsed-emergency by Dr. Kali Gates at [facility] 07/19/2014---- repeat for twins performed by Dr. Gates at [facility]. 04/06/2016-repeat with the drainage of left ovarian cyst and bilateral tubal ligation performed by Dr. Cannon at [facility] Hx of tubal ligation 04/06/2016-bilateral tubal ligation performed at time of by Dr. Cannon Family History Mother Diabetes Hypertension Family/Other Cancer Breast cancer maternal cousin Grandmother Diabetes maternal Denies family history of Colon cancer Ovarian cancer Hyperlipidemia Uterine cancer Thyroid disease Stroke Social History Smoking and tobacco/nicotine status: former use of tobacco/nicotine Course Vital Signs: Vital signs: Vital Signs Temperature 97.9 F 10/05/25 22:12 Pulse Rate 89 10/06/25 00:21 Respiratory Rate 16 10/05/25 22:12 Blood Pressure 121/93 10/06/25 00:21 Pulse Oximetry 98 10/06/25 00:21 Oxygen Delivery Me thod Room Air 10/06/25 00:15 MDM - Chest Pain Medical Decision Making Patient presented for chest pain associated with shortness of breath palpitations beginning while at work earlier this evening. Reported to me history of similar of which she has required court monitor in the past, but tells me that this was not diagnostic. He was nontoxic-appearing, stated the pain was constant. Heart score 0. States that she had received stress test with primary care in the past but again tells me that she was not diagnosed with anything from this. Her troponin negative here. EKG showing normal sinus rhythm with no rhythm changes. X-ray normal, rest of her lab work normal. She has a history of anxiety I suspect that this is likely prompting her symptoms, feel that this chest pain is noncardiac in nature and she is stable for discharge home with outpatient follow-up in place. This patient was originally seen by Mr. Veronica PA-C. I agree with his history, evaluation, and management. Lab Data 10/05/25 22:58 10/05/25 22:58 Radiology Impressions Chest X-Ray 10/05/25 22:42 IMPRESSION: No acute findings. Laboratory Results WBC 12.55 10^3/uL (3.29-11.43) H 10/05/25 22:58 RBC 4.53 10^6/uL (3.85-5.65) 10/05/25 22:58 Hgb 12.70 g/dL (11.27-16.99) 10/05/25 22:58 Hct 38.8 % (36-47) 10/05/25 22:58 MCV 85.7 fl (85-98) 10/05/25 22:58 MCH 28.0 pg (27-33) 10/05/25 22:58 MCHC 32.7 g/dL (30-55) 10/05/25 22:58 RDW 13.5 % (12.1-15.1) 10/05/25 22:58 Plt Count 336 10^3/cmm (157-399) 10/05/25 22:58 MPV 9.8 fL (7.4-10.4) 10/05/25 22:58 Neut % (Auto) 65.2 % 10/05/25 22:58 Lymph % (Auto) 26.1 % 10/05/25 22:58 Hayes % (Auto) 5.9 % 10/05/25 22:58 Eos % (Auto) 2.1 % 10/05/25 22:58 Baso % (Auto) 0.3 % 10/05/25 22:58 Neut # (Auto) 8.19 10^3/uL (1.8-7.7) H 10/05/25 22:58 Lymph # (Auto) 3.3 10^3/uL (0.8-4.8) 10/05/25 22:58 Hayes # (Auto) 0.7 10^3/uL (0.2-0.9) 10/05/25 22:58 Eos # (Auto) 0.3 10^3/uL (0.0-0.8) 10/05/25 22:58 Baso # (Auto) 0.0 10^3/uL (0.0-0.1) 10/05/25 22:58 Nucleated RBC % (auto) 0 % 10/05/25 22:58 Nucleated RBCs # 0.0 /100WBC 10/05/25 22:58 Sodium 141 mmol/L (136-145) 10/05/25 22:58 Potassium 3.9 mmol/L (3.5-5.1) 10/05/25 22:58 Chloride 104 mmol/L (98-107) 10/05/25 22:58 Carbon Dioxide 25 mmol/L (22-29) 10/05/25 22:58 Anion Gap 15.9 (5-19) 10/05/25 22:58 BUN 9 mg/dL (6-20) 10/05/25 22:58 Creatinine 0.5 mg/dL (0.5-0.9) 10/05/25 22:58 GFR Calculation 143.9 mL/min (90-130) H 10/05/25 22:58 Glucose 103 mg/dL (65-115) 10/05/25 22:58 Calculated Osmolality 291 mOsm/kg (285-295) 10/05/25 22:58 Calcium 9.7 mg/dL (8.5-10.5) 10/05/25 22:58 Total Bilirubin 0.2 mg/dL (0.15-1.2) 10/05/25 22:58 AST 29 U/L (0-32) 10/05/25 22:58 ALT 42 U/L (0-33) H 10/05/25 22:58 Alkaline Phosphatase 62 U/L (35-105) 10/05/25 22:58 Troponin T Baseline < 6 ng/L (0-10) 10/05/25 22:58 Total Protein 6.7 g/dL (6.6-8.7) 10/05/25 22:58 Albumin 4.4 g/dL (3.5-5.2) 10/05/25 22:58 Globulin 2.3 g/dL (1.3-4.6) 10/05/25 22:58 Influenza A (PCR) Negative (Negative) 10/05/25 23:28 Influenza Type B (PCR) Negative (Negative) 10/05/25 23:28 RSV (PCR) Negative (Negative) 10/05/25 23:28 SARS-CoV-2 (PCR) Negative (Negative) 10/05/25 23:28 Discharge Plan Discharge Patient Disposition: Home Clinical Impression: Anxiety Chest pain Qualifiers: Chest pain type: unspecified Qualified Code(s): R07.9 - Chest pain, unspecified Condition: Stable Prescriptions: No Action hydrochlorothiazide 25 mg tablet 25 mg PO DAILY Qty: 30 2RF pravastatin 10 mg tablet 10 mg PO DAILY Qty: 30 2RF ibuprofen 600 mg tablet 600 mg PO TID PRN (Reason: pain) Qty: 21 0RF (DME) cam walker rosalind See Rx Instructions .Route .MEDSUPPLY Qty: 1 0RF Rx Instructions: As directed celecoxib [Celebrex] 200 mg capsule 200 mg PO BID Qty: 60 2RF clotrimazole-betamethasone 1-0.05 % cream 1 applic topical BID 14 Days Qty: 15 0RF amoxicillin-pot clavulanate 875-125 mg tablet 1 tab PO BID 7 Days Qty: 14 0RF promethazine-DM 6.25-15 mg/5 mL syrup 7.5 ml PO Q6H PRN (Reason: cough) Qty: 118 0RF gabapentin 800 mg tablet 800 mg PO TID 30 Days Qty: 90 5RF pantoprazole 40 mg tablet,delayed release (DR/EC) See Rx Instructions .ROUTE .COMPLEX Qty: 30 2RF Dose Instruction: TAKE 1 TABLET BY MOUTH ONCE A DAY Rx Instructions: TAKE 1 TABLET BY MOUTH ONCE A DAY Discharge Orders: Discharge ED (Routine); Ordered 10/06/25 Ordered By: Walter Martin Referrals: Alba Rocha FNP-C [Primary Care Provider, Family Practice] Patient Instructions: Chest Pain (ED), Patient Portal & Lisseth Instructions Activity Restrictions/Additional Instructions: Discharge Instructions Diagnosis: You were evaluated for chest pain. Testing has ruled out a heart attack and other serious heart conditions. Your diagnosis is nonspecific noncardiac chest pain and anxiety. What This Means: Your heart has been thoroughly evaluated and is not the cause of your chest pain. This is good news. Many people experience chest pain that is not related to the heart. Common causes include musculoskeletal pain (from muscles or ribs), gastrointestinal issues (like acid reflux), and anxiety or stress. Follow-Up Care: - Schedule an appointment with your primary care provider within 2 weeks (ideally within 14 days). - Your primary care provider will help identify the specific cause of your chest pain and develop a treatment plan. - Bring a list of any symptoms you experience, including when they occur and what makes them better or worse. Treatment Considerations: Your primary care provider may discuss several treatment options with you, which could include: - Evaluation for gastrointestinal causes such as acid reflux - Assessment for musculoskeletal causes like chest wall pain - Consideration of anxiety or stress-related factors About Anxiety and Chest Pain: Anxiety, panic attacks, and stress can cause real chest pain and shortness of breath. If you have recurrent chest pain episodes similar to this one, cognitive-behavioral therapy has been shown to reduce chest pain frequency by about one-third. Your primary care provider can discuss whether a referral to a mental health professional would be helpful for you. When to Seek Emergency Care: Return to the emergency department or call 911 if you experience: - Chest pain that is different from what you experienced before - Chest pain with shortness of breath, sweating, nausea, or pain radiating to your arm or jaw - Severe difficulty breathing - Fainting or loss of consciousness - Any other symptoms that concern you Important Reminders: - Continue taking all your regular medications as prescribed - Avoid smoking and limit alcohol consumption - Maintain a healthy diet and regular physical activity as tolerated - Manage stress through relaxation techniques, adequate sleep, and healthy coping strategies Questions? If you have questions before your follow-up appointment, contact your primary care provider's office. Print Language: Telugu Coding Level of Care Code ED Joist Setter for Chg Fwd Heart Score HEART Score RESULT HEART Score: 0
[2025-10-05 23:03] VITALS: BP 151/83; PULSE 84; O2SAT 99
[2025-10-05 23:14] LABS: Hematocrit 38.8 % (36-47); Hemoglobin 12.70 g/dL (11.27-16.99); Mean Corpuscular HGB Conc 32.7 g/dL (30-55); Mean Corpuscular Hemoglobin 28.0 pg (27-33); Mean Corpuscular Volume 85.7 fl (85-98); Nucleated Red Blood Cells % 0 %; Platelet Count 336 10^3/cmm (157-399); Red Blood Count 4.53 10^6/uL (3.85-5.65); White Blood Count 12.55 10^3/uL (3.29-11.43)
[2025-10-05 23:28] VITALS: BP 138/100; PULSE 86; O2SAT 100
[2025-10-05 23:30] VITALS: BP 150/78; PULSE 96; O2SAT 95
[2025-10-05 23:33] LABS: Troponin(5th) Baseline < 6 ng/L (0-10)
[2025-10-05 23:42] LABS: Alanine Aminotransferase 42 U/L (0-33); Albumin Level 4.4 g/dL (3.5-5.2); Alkaline Phosphatase 62 U/L (35-105); Anion Gap 15.9 (5-19); Aspartate Amino Transferase 29 U/L (0-32); Blood Urea Nitrogen 9 mg/dL (6-20); Calcium 9.7 mg/dL (8.5-10.5); Carbon Dioxide 25 mmol/L (22-29); Chloride 104 mmol/L (98-107); Globulin 2.3 g/dL (1.3-4.6); Glucose 103 mg/dL (65-115); Osmolality Calculated 291 mOsm/kg (285-295); Potassium 3.9 mmol/L (3.5-5.1); Sodium 141 mmol/L (136-145); Total Protein 6.7 g/dL (6.6-8.7)
[2025-10-05 23:45] VITALS: BP 133/80; PULSE 88; O2SAT 97
[2025-10-06] VITALS: BP 153/81; PULSE 88; O2SAT 98
[2025-10-06 00:15] VITALS: BP 149/77; PULSE 81; O2SAT 98
[2025-10-06 00:15] LABS: Respiratory Syncytial Virus Ce NEGATIVE (Negative); SARS-CoV-2 PCR NEGATIVE (Negative)
[2025-10-06 00:21] VITALS: BP 121/93; PULSE 89; O2SAT 98
== END 2025-10-06 00:29 | disposition home or self-care (01) ==
PROVIDERS: Emergency Provider Physician Assistant; PCP Nurse Practitioner Family
DX: F41.9 Anxiety disorder, unspecified (principal); R07.9 Chest pain, unspecified; Z11.52 Encounter for screening for COVID-19; Z87.891 Personal history of nicotine dependence
CPT/HCPCS: 36415; 71045; 80053; 84484; 85025; 87637; 93005; 99285; Q0162